=== PATIENT | female | born 1990 | race Caucasian/White ===

== ENCOUNTER 2016-10-31 06:11 | Observation (INO) | payer MEDICAID ==
[2016-10-31] VITALS (15 sets, daily range): BP systolic 107–163; BP diastolic 43–85
--- OUTSIDE RECORDS SUMMARY | 2016-10-31 06:23 | External Medical Summary Rpt ---
Author Author , Organization [employer] Address Unknown Phone Unavailable Care Team Providers Care Federal Judge Name Role Phone BEAVEN BRAD, BEAVEN Unavailable Unavailable BRAD JUÁREZ KIR, JUÁREZ Unavailable Unavailable KIR [facility] Unavailable [facility]available [facility], [facility] FIELD JANICE, FIELD JANICE Unavailable Unavailable [facility] Unavailable Unavailable SERVICE, [facility] Unavailable Unavailable SERVICE, [facility] JACQUES JANICE, JACQUES Unavailable Unavailable JANICE [facility] Unavailable Unavailable [facility], [facility] Unavailable Unavailable [facility]ANS, [facility] COPPAGE KRI, COPPAGE Unavailable Unavailable KRI DESCAlissa JANICE, DESCH JANICE Unavailable Unavailable KENISHA DAMON Unavailable Unavailable FIORDALIZA JESSICA SHAHID, JESSICA Unavailable Unavailable SHAHID JESSICA MAR, JESSICA Unavailable Unavailable MAR DOWNTON LIS, DOWNTON Unavailable Unavailable LIS ANYA MALCOM, ANYA Unavailable Unavailable MALCOM JULISSA NOR, JULISSA Unavailable Unavailable NOR CAMILLA SCOTT, CAMILLA SCOTT Unavailable Unavailable MICHELLSHSAURABH ESCUDERO, Unavailable Unavailable GANSHIRT KOTA MCDONALD MD, Unavailable Unavailable JACKIE JACKSON, Unavailable Unavailable REBECCA JACKSON, Unavailable Unavailable REBECCA JUNIOR LIL, VERNON LIL Unavailable Unavailable HARPEL, HARPEL Unavailable Unavailable [facility], HARPEL Unavailable Unavailable [facility] Un[facility] Un[facility], [facility], Unavailable Unavailable [facility] HURST MARTA, HURST MARTA Unavailable Unavailable REA GAR, REA Unavailable Unavailable BERKLEY MANCERA, Unavailable Unavailable RWODY MANCERA ESTEBAN EDNA, ESTEBAN EDNA Unavailable Unavailable LAMBRASHMI GARCIA, LAMBRASHMI Unavailable Unavailable MELISSA RAMOS Unavailable Unavailable ML [facility]STER[facility] ANJUM, Unavailable Unavailable [facility] ANJ[facility] Un[facility]available [facility], [facility], [facility] Unavailable Unavailable [facility] Unavailable Unavailable CENTER, [facility], , Unavailable Unavailable [facility] Unavailable Unavailable [facility]ORAT[facility], [facility] Unavailable Unavailable OF NOT, [facility]available Unavailable OF [facility], [facility] Unavailable Unavailable [facility], [facility] SHUKLA GLADIS, Unavailable Unavailable SHUKLA GLADIS [facility], [facility] Unavailable Unavailable [facility], [facility] Unavailable Unavailable ALP CHULA NAN, CHULA NAN Unavailable Unavailable SOTINGEANU JANICE, Unavailable Unavailable SOTINGEANU JANICE [facility], Unavailable Unavailable [facility] Un[facility], Unavailable Unavailable [facility] Unavailable Unavailable W[facility] INSPECTOR ST, [facility] Un[facility] Unavailable Unavailable [facility]ICIANS, [facility] Un[facility] Un[facility], [facility], [facility]available Unavailable [facility] MAURA STEPHENSON Unavailable Unavailable [facility] # Unavailable Unavailable 4, [facility] # 4 [facility] Unavailable Unavailable [facility], [facility], Unavailable Unavailable [facility] Unavailable Unavailable ME, [facility] TONY DEW, TONY DEW Unavailable Unavailable WOESTE MALCOM, WOESTE Unavailable Unavailable MALCOM SAMANTA MALCOM, SAMANTA MALCOM Unavailable Unavailable Purpose Continuity of Care Document - 08-11-2010 through 2016 Problems Code Diagnosis DOS Provider Status N393 STRESS 10-06-2016 [facility] INCONTINENC PHYSICIANS E FEMALE GROUP MALE N819 FEMALE 10-06-2016 [facility] GENITAL PHYSICIANS PROLAPSE GROUP UNSPECIFIED N3644 MUSCULAR 09-05-2016 [facility] DISORDERS PHYSICIANS OF [place]RE[place] GROUP [id number] ENCOUNTER 08-22-2016 [facility] PATENT PROSECUTION ATTORNEY EXAM PHYSICIANS GENERAL RTN GROUP W/O ABNORMAL FIND [id number] FOREIGN 08-20-2016 ST BODY IN [facility] LEFT EAR PHYSICIANS INITIAL ENCOUNTER B9789 OTH VIRAL 07-30-2016 ST AGENT CAUSE [facility] DISEASES PHYSICIANS CLASSIFIED ELSW J069 ACUTE UPPER 07-30-2016 [facility] RESPIRATORY PHYSICIANS INFECTION UNSPECIFIED T148 OTHER 11-27-2015 ST INJURY OF [facility] UNSPECIFIED PHYSICIANS BODY REGION [id number] OTHER EARLY 11-27-2015 ST [facility] COMPLICATIO PHYSICIANS NS TRAUMA INITIAL ENCNTR Z4802 ENCOUNTER 11-27-2015 ST FOR REMOVAL [facility] OF SUTURES PHYSICIANS M7989 OTHER 11-20-2015 [facility] SPECIFIED [facility]EL SOFT TISSUE DISORDERS [id number] LAC W/O FB 11-20-2015 [facility] UNS FINGER EMERGENCY W/O DAMAGE PHYSICIANS NAIL INITIAL [id number] PUNCTURE 11-20-2015 [facility] WOUND W/O EMERGENCY FB UNS HAND PHYSICIANS INITIAL ENC [id number] OPEN BITE 11-20-2015 GULUZIAN OF RIGHT RENETTA WRIST INITIAL ENCOUNTER [id number] BITTEN BY 11-20-2015 [facility] DOG INITIAL EMERGENCY ENCOUNTER PHYSICIANS N8320 UNSPECIFIED 10-16-2015 [facility] CYSTS INC Z302 ENCOUNTER 10-16-2015 [facility] STERILIZATI INC ON E26422 ENCOUNTER 10-12-2015 [facility] PREPROCEDUR INC AL LABORATORY EXAM N898 OTHER 10-05-2015 [facility] SPECIFIED [facility]ICIANS, NONINFLAMMA PLLC TORY DISORDERS VAGINA N939 ABNORMAL 10-05-2015 [facility] UTERINE & AMBULANCE VAGINAL SERVICE BLEEDING UNSPECIFIED O021 MISSED 10-05-2015 [facility] O034 INCOMPLETE 10-05-2015 [facility] W/O COMPLICATIO N O2691 10-05-2015 [facility], CONDITIONS PLLC UNS 1ST TRIMESTER R109 UNSPECIFIED 10-05-2015 [facility] ABDOMINAL AMBULANCE PAIN SERVICE O200 THREATENED 10-02-2015 [facility] PHYSICIANS GROUP N925 OTHER 09-10-2015 JACKIE MCDONALD MD IRREGULAR MENSTRUATIO N N760 ACUTE 09-07-2015 JACKIE Hubbard VAGINITIS TAMARA SINGLETON Z3009 ENCOUNTER 09-07-2015 JACKIE Hubbard [facility] TAMARA SINGLETON WARP DRESSER&ADV ICE CONTRACEPT O80 ENCOUNTER 04-24-2015 ST FOR [facility] FULL-TERM PHYSICIANS UNCOMPLICAT ED DELIVERY Z370 SINGLE LIVE 04-24-2015 ST [facility] PHYSICIANS Z3A40 40 WEEKS 04-24-2015 ST GESTATION [facility] OF PHYSICIANS [id number] DECREASED 04-21-2015 ST [facility] MOVEMENTS PHYSICIANS THIRD TRI FETUS 1 Z3483 ENC 04-21-2015 ST SUPERVISION [facility] OTH NORMAL PHYSICIANS 3 TRIMESTER Z3A39 39 WEEKS 04-21-2015 ST GESTATION [facility] OF PHYSICIANS O622 OTHER 04-13-2015 ST UTERINE [facility] INERTIA PHYSICIANS O628 OTHER 04-13-2015 ST ABNORMALITI [facility] ES OF MED CTR WATER INSPECTOR FORCES OF ST LABOR Z0371 ENCOUNTER 04-13-2015 ST SUSP PROB [facility] AMNIOTIC PHYSICIANS CAV MEMB RULED OUT Z36 ENCOUNTER 04-13-2015 ST FOR [facility] MED CTR WATER INSPECTOR SCREENING ST OF MOTHER Z3A38 38 WEEKS 04-13-2015 ST GESTATION ROG[facility] OF PHYSICIANS V221 SUPERVISION 03-17-2015 ST OF OTHER [facility] NORMAL PHYSICIANS 72014 THREATENED 03-12-2015 ST PREMATURE [facility] LABOR MED CTR WATER INSPECTOR ANTEPARTUM ST V2889 OTHER 03-12-2015 ST SPECIFIED [facility] MED CTR WATER INSPECTOR SCREENING ST 64576 OBESITY, 03-06-2015 ST UNSPECIFIED [facility]ATER [place] ST 81324 OTHER 03-06-2015 [facility] SPECIFED [facility] COMPLICATIO N ANTEPARTUM 11495 TOB USE D/O 03-06-2015 ST COMP PG [facility] /PP MED CTR WATER INSPECTOR ANTEPARTM ST COND/COMP 25157 OBES COMP 03-06-2015 ST PG [facility] /THE MED CTR WATER INSPECTOR PP ST ANTEPARTUM COND/COMP V8533 BODY MASS 03-06-2015 ST INDEX [facility] 33.0-33.9 MED CTR WATER INSPECTOR ADULT ST 4610 ACUTE 12-17-2014 ST MAXILLARY [facility] SINUSITIS PHYSICIANS V222 12-17-2014 STATE, [facility] INCIDENTAL PHYSICIANS 99825 UNS 12-03-2014 [facility] ABNORM MGMT W[facility] LLC MOTH ANTPRTM COND/COMP V2389 SUPERVISION 09-29-2014 ST OF OTHER [facility] HIGH-RISK MED CTR WATER INSPECTOR ST 5589 OTH&UNSPEC 09-17-2014 [facility] NONINFECTIO EMERGENCY US PHYSICIANS GASTROENTER ITIS&COLITI S V7242 09-11-2014 ST EXAMINATION [facility] OR TEST PHYSICIANS POSITIVE RESULT 3829 UNSPECIFIED 07-16-2014 ST OTITIS [facility] MEDIA PHYSICIANS 4619 ACUTE 07-16-2014 ST SINUSITIS, [facility] UNSPECIFIED PHYSICIANS 4871 INFLUENZA 06-04-2014 ST WITH OTHER ROGER RESPIRATORY PHYSICIANS MANIFESTATI ONS 29407 FEVER 06-04-2014 ST UNSPECIFIED [facility]OG[facility] PHYSICIANS 79495 PAIN IN 05-27-2014 [facility] THIGH 7245 UNSPECIFIED 05-19-2014 ST. BACKACHE R[facility] NAOMIE V571 OTHER 05-19-2014 ST. PHYSICAL [facility] THERAPY NAOMIE 99063 SCOLIOSIS , 05-06-2014 [facility] 6260 ABSENCE OF 03-31-2014 ST MENSTRUATIO ROG[facility] N PHYSICIANS V0481 NEED 03-31-2014 ST PROPHYLACTI ROGER C PHYSICIANS VACCINATION &INOCULATIO N FLU V2549 SURVEILLANC 01-31-2014 [facility] ALP E OTH PREV PRSC CONTRACEPT METHOD 15822 ASTHMA, 01-05-2014 ST UNSPECIFIED [facility] , MED CTR WATER INSPECTOR UNSPECIFIED ST STATUS 39718 OTH CURRENT 01-05-2014 ST MATERNAL [facility] CCE MED CTR WATER INSPECTOR W/DELIVERY ST 86307 TOBACCO USE 01-05-2014 ST D/O COMP [facility] PG MED CTR WATER INSPECTOR CHILDBIRTH/ ST PP DELIVERED 650 NORMAL 01-05-2014 ST DELIVERY [facility] PHYSICIANS 33671 OTHER 01-05-2014 ST SPECIFIED [facility] TRAUMA MED CTR WATER INSPECTOR PERINEUM&VU ST LVA W/DELIVERY V270 OUTCOME OF 01-05-2014 ST DELIVERY [facility] SINGLE PHYSICIANS LIVEBORN 20744 OTHER 12-29-2013 ST THREATENED [facility] LABOR, MED CTR WATER INSPECTOR ANTEPARTUM ST V289 UNSPECIFIED 12-29-2013 ST [facility] SCREENING MED CTR WATER INSPECTOR ST 50682 DECR 11-02-2013 ST MOVMNTS [facility] MGMT MOTH MED CTR WATER INSPECTOR ANTPRTM ST COND/COMP V036 NEED PROPH 10-29-2013 ST VACC&INOCUL R[facility] AT AGAINST PHYSICIANS PERTUSS ALONE V061 NEED PROPH 10-29-2013 ST VAC W/COMB [facility] DIPHTH-TETA PHYSICIANS NUS-PERTUSS [facility] V8531 BODY MASS 09-11-2013 ST INDEX [facility] 31.0-31.9 MED CTR WATER INSPECTOR ADULT ST 65148 OTH SPEC 08-12-2013 ST MALPSTN/MAL [facility] PRESENTATIO MED CTR WATER INSPECTOR N FETUS ST ANTPRTM 76105 ABDOMINAL 06-01-2013 [facility] UNSPECIFIED OF [facility] SITE 88800 OTH CURRENT 05-31-2013 ST MAT CONDS [facility] CLASSIFIABL MED CTR WATER INSPECTOR E ELSW ST ANTPRTM 42632 ABDOMINAL 05-31-2013 ST PAIN RIGHT [facility] LOWER MED CTR QUADRANT 11121 CALCU 05-26-2011 ST GALLBLADD ROG[facility] W/O MENTION PHYSICIANS CHOLECYST/O BST V5869 LONG-TERM 05-26-2011 ST (CURRENT) [facility] USE OF FT ANA OTHER MEDICATIONS 74508 OTHER COMPL 05-13-2011 ST. OF R[facility]ER PUERPERIUM NAOMIE PP COND/COMPL 60386 ABDOMINAL 05-13-2011 ST. PAIN RIGHT [facility] UPPER NAOMIE QUADRANT 12764 LEUKOCYTOSI 05-10-2011 ST S [facility] UNSPECIFIED MED CTR WATER INSPECTOR ST 7906 OTHER 05-10-2011 ST ABNORMAL [facility] BLOOD MED CTR WATER INSPECTOR CHEMISTRY ST V242 ROUTINE 04-25-2011 [place] [address] POST TERM 04-22-2011 [facility] PG UNSPEC WOMEN'S EPIS HEALTH ASS CARE/NOT APPLIC 34217 04-22-2011 [facility] DISTRESS WOMEN'S AFFCT MGMT HEALTH ASS MOTH UNS EPIS CARE 16028 ABN FETL 04-22-2011 ST HRT [facility] RATE/RHYTHM MEDICALCENT DELIV W/WO ER ANTPRTM COND 42171 OTH&UNS CRD 04-22-2011 ST ENTANGL [facility] W/O COMPRS MEDICALCENT COMP L&D ER DELIV 42280 OTHER 04-18-2011 [facility] THREATENED WOMEN'S LABOR HEALTH ASS UNSPEC EPISODE CARE 51100 PREMATURE 04-18-2011 [facility] RUPTURE MATERNAL MEMB PG ME UNSPEC EPIS CARE V239 UNSPECIFIED 04-18-2011 [facility] HIGH-RISK MATERNAL ME V220 SUPERVISION 04-14-2011 [facility] OF NORMAL [facility] 60107 EFFUSION OF 04-07-2011 ST. ANKLE AND ROGER FOOT JOINT NAOMIE 35243 SWELLING OF 04-07-2011 ST. LIMB [facility] NAOMIE V7189 OBSERVATION 04-07-2011 ST. OTHER [facility] SPECIFIED NAOMIE SUSPECTED CONDITIONS V141 PERSONAL 03-13-2011 HISTORY [facility] OTHER ER ANTIBIOTIC AGENT 541 APPENDICITI 01-05-2011 [facility] UNQUALIFIED PSC 6259 UNSPEC 01-05-2011 [facility] SYMPTOM [facility]'S ASSOC HEALTH ASS W/FEMALE GENITAL ORGANS V143 PERSONAL 01-04-2011 H[facility]ORY [facility] ER ANTI-INFECT MANDI AGT 95643 ABDOMINAL 01-03-2011 ST. PAIN OTHER [facility] SPECIFIED NAOMIE SITE V1582 PERS HX 01-03-2011 . TOBACCO USE [facility] PRESENTING [facility] HAZARDS HEALTH 4660 ACUTE 12-01-2010 BRONCHITIS [facility] 40055 UNSPECIFIED 11-28-2010 . [facility] ARTHROPATHY [facility] SITE UNSPECIFIED 9150 ABRASION/FR 11-28-2010 . ICTION BURN [facility] FINGER W/O NA[facility]IE MENTION INF 9233 CONTUSION 11-28-2010 ST. OF FINGER [facility] NAOMIE V148 PERSONAL 11-28-2010 . HISTORY [facility] ALLERGY OT NAOMIE SPEC MEDICINAL AGTS V7240 09-14-2010 [facility] EXAMINATION WOMEN'S /TEST HEALTH ASS UNCONFIRMED 7840 HEADACHE 09-04-2010 [facility] 36735 UNSPEC COMP 09-02-2010 [facility] UNSPEC PHYSICIANS EPISODE CARE Medications Na ND Rx Da Fi Fi Am Da Di Ph RX Ph St me C No te ll ll ou ys ag ar # ys at rm s nt no ma ic us Or Da si cy ia de te s n re d OX 62 03 04 5. 5 00 CL Ac YB 17 -2 -1 00 00 IN ti UT 50 0- 4- 0 00 IC ve YN 27 20 20 42 IN 13 17 17 57 PH 7 26 AR CL MA CY ER 10 MG TA BL ET OX 62 03 03 14 14 00 CL Ac YB 17 -0 -3 .0 00 IN ti UT 50 6- 1- 00 00 IC ve YN 27 20 20 42 IN 13 17 17 43 PH 7 39 AR CL MA CY ER 10 MG TA BL ET OS 47 02 03 10 10 00 TO Ac EL 78 -2 -1 .0 00 TA ti TA 10 0- 7- 00 00 L ve CA 47 20 20 66 CA 01 17 17 53 RE R 3 69 PH PH OS AR MA 75 CY # MG 4 CA PS UL E IB 53 02 03 30 8 00 TO Ac UP 74 -1 -1 .0 00 TA ti RO 60 1- 0- 00 00 L ve FE 46 20 20 66 CA N 50 17 17 45 RE 60 5 02 0 PH MG AR MA TA CY BL # ET 4 FL 00 02 03 18 9 00 TO Ac OM 60 -1 -1 0. 00 TA ti ET 31 1- 0- 00 00 L ve AGUILAR 58 20 20 0 66 CA ZI 65 17 17 45 RE NE 8 03 -D PH M AR SY MA RU CY P # 4 BE 65 02 03 30 10 00 TO Ac NZ 16 -1 -1 .0 00 TA ti ON 20 1- 0- 00 00 L ve AT 53 20 20 66 CA AT 75 17 17 45 RE E 0 04 20 PH 0 AR MG MA CY CA # PS 4 UL E ZA 13 07 10 9 30 30 TO 48 KA Ac TE 81 -2 -0 .0 TA 33 NT ti AN 10 0- 1- 00 L 10 ER ve -P 58 20 20 CA N 03 11 11 RE GA DH 0 RY A PH J CA AR PS MA UL CY E # 4 ZA 13 07 08 9 30 30 TO 48 KA Ac TE 81 -2 -2 .0 TA 33 NT ti AN 10 0- 5- 00 L 10 ER ve -P 58 20 20 CA N 03 11 11 RE GA DH 0 RY A PH J CA AR PS MA UL CY E # 4 ZA 13 07 07 9 30 30 TO 48 KA Ac TE 81 -2 -2 .0 TA 33 NT ti AN 10 0- 0- 00 L 10 ER ve -P 58 20 20 CA N 03 11 11 RE GA DH 0 RY A PH J CA AR PS MA UL CY E # 4 AM 00 06 06 0 40 10 TO 48 MA Ac OX 78 -1 -1 .0 TA 02 RT ti IC 12 5- 5- 00 L 87 IN ve IL 61 20 20 CA LI 30 11 11 RE ABE N 5 SE 50 PH PH 0 AR R MG MA CY CA # PS 4 UL E VE 00 06 06 5 18 16 TO 48 MA Ac NT 17 -1 -1 .0 TA 02 RT ti OL 30 5- 5- 00 L 88 IN ve IN 68 20 20 CA 22 11 11 RE ABE HF 0 SE A PH PH 90 AR R MA MC CY G # IN 4 AGUILAR LE R ZA 13 03 06 12 30 30 TO 47 RA Ac TE 81 -2 -1 .0 TA 28 NS ti AN 10 9- 4- 00 L 98 ON ve -P 58 20 20 CA N 03 11 11 RE TI DH 0 NA A PH L CA AR PS MA UL CY E # 4 ZA 13 03 05 12 30 30 TO 47 RA Ac TE 81 -2 -0 .0 TA 28 NS ti AN 10 9- 5- 00 L 98 ON ve -P 58 20 20 CA N 03 11 11 RE TI DH 0 NA A PH L CA AR PS MA UL CY E # 4 ZA 13 03 03 12 30 30 TO 47 RA Ac TE 81 -2 -2 .0 TA 28 NS ti AN 10 9- 9- 00 L 98 ON ve -P 58 20 20 CA N 03 11 11 RE TI DH 0 NA A PH L CA AR PS MA UL CY E # 4 AM 00 03 03 0 20 10 TO 47 DO Ac OX 78 -1 -1 .0 TA 18 NO ti IC 15 7- 7- 00 L 76 VA ve IL 06 20 20 CA N LI 10 11 11 RE AN N 1 NE 87 PH D 5 AR MG MA CY TA # BL 4 ET Immunization Name Date Route CVX Reacti Commen Provid Is Given on t er Refuse d IIV4 CHULA No VACC 2013 NAN SPLIT VIRUS 0.5 ML DOS FOR IM USE TDAP TAYCE No VACCIN 2014 FIORDALIZA E 7 YRS/> IM Procedures Procedure DOS Code Location Performer Comment CULTURE 67874 [facility] CHLAMYDIA 7 PHYSICIAN ANY S GROUP SOURCE IADNA 02176 [facility] NEISSERIA 7 PHYSICIAN S GROUP [place] [address] [place] VARELA, XTRNL 7 [facility]ER MAJANO, DO AUDITORY CANAL W/O PHYSICIAN ANES S SIMPLE 76721 [facility] CAMILLA SCOTT REPAIR 6 EMERGENCY SCALP/NEC K/AX/KAELA PHYSICIAN T/TRUNK S 2.5CM/< RADEX 04668 GULU[facility]IAN GULUZIAN WRIST 6 RENETTA RENETTA COMPLETE MINIMUM 3 VIEWS LAPS SURG 18640 JACKIE MCDONALD W/ASPIR 6 TAMARA SINGLETON EZE CAVITY/CY ST SINGLE/MU LTIPLE BLOOD 99076 [facility] HEMOGLOBI INC INC N INJECTION J2710 [facility] NEOSTIGMI INC INC NE METHYLSUL FATE UP TO 0.5 MG COLLECTIO 22763 [facility] N VENOUS 6 [facility] BLOOD INC INC VENIPUNCT URE INJECTION J2405 [facility] ONDANSETR INC INC ON HCL PER 1 MG ANESTHESI 25910 [facility] EMIR Falcon 6 ANESTH INTRAPERI OF THE TONEAL BLUE LOWER ABD W/LAPS NOS BLOOD 51471 [facility] COUNT 6 [facility] HEMATOCRI INC INC T LAPAROSCO 76714 [facility] PY 6 [facility] FULGURATI INC INC ON OVIDUCTS INJECTION J0131 [facility] ACETAMINO INC INC PHEN 10 MG URNLS DIP 30848 [facility] [facility] STICK/TAB INC INC LET REAGENT AUTO MICROSCOP Y COLLECTIO 01963 [facility] N VENOUS 6 [facility] BLOOD INC INC VENIPUNCT URE BLOOD 49582 [facility] COUNT 6 [facility] COMPLETE INC INC AUTO&AUTO DIFRNTL WBC GONADOTRO 94649 [facility] PIN 6 [facility] CHORIONIC INC INC QUALITATI VE BLOOD 32036 [facility] COUNT 6 [facility] HEMOGLOBI INC INC N ANESTHESI 88720 [facility] FERCHO A 6 ANESTH SHE INCOMPLET OF THE E/MISSED BLUE COLLECTIO 59087 [facility] N VENOUS 6 [facility] BLOOD INC INC VENIPUNCT URE BLOOD 15423 [facility] KING COUNT 6 [facility] [place] [address] [facility] TAMARA INCOMPLET 6 PHYSICIAN EZE E S GROUP ANY TRIMESTER SURGICAL INJECTION J2405 [facility] 6 [facility] ONDANSETR INC INC ON HCL [place] 1 [place] [address] [facility] SURG 6 [facility] PATHOLOGY GROSS&VENKATESH ROSCOPIC EXAM GROUND A0425 [facility] PER SERVICE SERVICE STATUTE MILE AMBULANCE A0429 [facility] 6 AMBULANCE AMBULANCE BLS SERVICE SERVICE EMERGENCY TRANSPORT GONADOTRO 72139 [facility] PIN 6 [facility] CHORIONIC INC INC QUANTITAT MANDI COLLECTIO 53626 F[facility] N VENOUS 6 [facility] BLOOD INC INC VENIPUNCT URE GONADOTRO 50004 [facility] K[facility] PIN 6 [facility] CHORIONIC INC INC QUANTITAT MANDI BLOOD 32362 [facility] TYPING 6 [facility] SEROLOGIC INC INC ABO BLOOD 06420 [facility] TYPING 6 [facility] SEROLOGIC INC INC RH (D) US PREG 60635 [facility] UTERUS 6 PHYSICIAN EZE REAL TIME S GROUP W/IMAGE DCMTN TRANSVAG URINE 25372 [facility] 6 PHYSICIAN EZE TEST S GROUP VISUAL COLOR CMPRSN METHS SMR PRIM 33793 JACKIE MCDONALD SRC WET 6 TAMARA SINGLETON EZE MOUNT NFCT AGT IADNA 54085 BIO BIO CHLAMYDIA 6 REFERNCE REFERNCE LABORATOR LABORATOR TRACHOMAT IES IES IS AMPLIFIED PROBE TQ CYTP 71038 BIO BIO CERV/VAG 6 REFERNCE REFERNCE AUTO THIN LABORATOR LABORATOR LAYER IES IES PREP MNL SCREEN IADNA 76403 JACKIE Hubbard NEISSERIA 6 TAMARA MCDONALD MD GONORRHOE AE DIRECT PROBE TQ IADNA 41891 BIO BIO NEISSERIA 6 REFERNCE REFERNCE LABORATOR LABORATOR GONORRHOE IES IES AE AMPLIFIED PROBE TQ IADNA NOS 87838 BIO BIO 6 REFERNCE REFERNCE AMPLIFIED LABORATOR LABORATOR PROBE TQ IES IES EACH ORGANISM CULTURE 94307 JACKIE MCDONALD CHLAMYDIA 6 TAMARA SINGLETON EZE ANY SOURCE IADNA 24685 BIO BIO TRICHOMON 6 REFERNCE REFERNCE LABORATOR LABORATOR VAGINALIS IES IES AMPLIFIED PROBE TECH VAGINAL 93255 ST ESTEBAN EDNA DELIVERY 5 [facility] ONLY W/POSTPAR PHYSICIAN MIKE CARE S NEURAXIAL 71385 INDEPENDE DESCH JANICE LABOR 5 NT ANALG/ANE ANESTHESI S PLND OLOGIST VAGINAL DELIVERY 81945 ST JESSICA NONSTRESS 5 ROGER MAR TEST PHYSICIAN S 38795 ST JUNIOR LIL NONSTRESS 5 ROGER TEST PHYSICIAN S HOSPITAL G0463 ST ST OUTPATIEN 5 ROGER ROGER T CLIN MED CTR MED CTR VISIT WATER INSPECTOR ST WATER INSPECTOR ST ASSESS & MGMT PT IADNA [address] CHLAMYDIA 5 ROGER ROGER MED CTR MED CTR TRACHOMAT WATER INSPECTOR ST WATER INSPECTOR ST IS AMPLIFIED PROBE TQ IADNA [address] NEISSERIA 5 ROGER ROGER MED CTR MED CTR GONORRHOE WATER INSPECTOR ST WATER INSPECTOR [place] AM[place] [address] NONSTRESS 5 ROGER ROGER TEST MED CTR MED CTR WATER INSPECTOR ST WATER INSPECTOR ST THERAPEUT [address] IC 5 ROGER ROGER PROPHYLAC MED CTR MED CTR TIC/DX WATER INSPECTOR ST WATER INSPECTOR ST INJECTION SUBQ/[place] [address] INFUSION 5 ROGER ROGER HYDRATION MED CTR MED CTR INITIAL WATER INSPECTOR ST WATER INSPECTOR ST 31 MIN-[address] IN[address] 5 ROGER ROGER TERBUTALI MED CTR MED CTR NE WATER INSPECTOR ST WATER INSPECTOR ST SULFATE UP TO [address] D[address] 5 ROGER ROGER STICK/TAB MED CTR MED CTR LET WATER INSPECTOR ST WATER INSPECTOR ST REAGENT AUTO MICROSCOP [place] PREG 48909 [facility] UTERUS [facility] [employer] REAL TIME F/U TRNSABDL PER FETUS GLUCOSE [address] [facility] 5 ROGER ROGER GLUCOSE NAOMIE NAOMIE DOSE BLOOD [address] COUNT 5 ROGER ROGER COMPLETE NAOMIE NAOMIE AUTO&AUTO DIFRNTL WBC COLLECTIO [address] N VENOUS 5 ROGER ROGER BLOOD NAOMIE NAOMIE VENIPUNCT URE US PREG 30240 [facility] UTERUS [facility] [employer] DON W/DETAIL RAJINDER 1ST GESTATION IADNA [address] [place] 5 [facility] MED CTR GONORRHOE WATER INSPECTOR ST WATER INSPECTOR ST AE AMPLIFIED PROBE TQ IADNA [address] CHLAMYDIA 5 [facility] MED CTR TRACHOMAT WATER INSPECTOR ST WATER INSPECTOR ST IS AMPLIFIED PROBE TQ CYTP C/V [address] AUTO THIN 5 [facility] MED CTR PREPJ SCR WATER INSPECTOR ST WATER INSPECTOR ST MNL RESCR PHYS CULTURE [address] BACTERIAL 5 [facility] CTR MED CTR QUANTTATI WATER INSPECTOR ST WATER INSPECTOR ST VE COLONY COUNT URINE URINE 13440 ST JESSICA 5 ROGER MAR TEST VISUAL PHYSICIAN COLOR S CMPRSN METHS IAADIADOO 53617 KENISHA 4 ROGER FIORDALIZA INFLUENZA PHYSICIAN S APPL 52570 [facility]. MODALITY 4 ROGER ROGER / [facility] NAOMIE NAOMIE ELEC STIMJ UNATTENDE D THERAPEUT 98932 [facility]. IC PX 1/> [address] [facility] NAOMIE NAOMIE EACH 15 MIN EXERCISES PHYSICAL 44490 . . THERAPY 4 SPARROW BUSH ROGER EVALUATIO NAOMIE NAOMIE N THERAPEUT 33144 . . IC PX 1/> [address] [facility] NAOMIE NAOMIE EACH 15 MIN EXERCISES RADEX HIP 88101 [facility] COMMONWE[facility] 4 LTH LTH UNILATERA ORTHOPAED ORTHOPAED L [address] IC CTR RADIOLOGI 39228 [facility] COMMONWEA C 4 LTH LTH EXAMINATI ORTHOPAED ORTHOPAED ON PELVIS IC CTR IC CTR 1/2 VIEWS IM ADM [address] ST CHULA NAN PRQ ID 4 ROGER SUBQ/IM NJXS 1 PHYSICIAN VACCINE S GONADOTRO [address] PIN 4 ROGER ROGER [facility] WATER INSPECTOR ST WATER INSPECTOR ST QUALITATI VE IIV4 VACC [address] [facility] SPLIT 4 ROGER VIRUS 0.5 ML DOS PHYSICIAN FOR IM S USE VAGINAL 08307 ST JESSICA DELIVERY 4 ROGER SHAHID ONLY W/POSTPAR PHYSICIAN MIKE CARE S OTHER [address] ARTIFICIA 4 ROGER ROGER L RUPTURE MED CTR MED CTR OF WATER INSPECTOR ST WATER INSPECTOR ST MEMBRANES OTHER [address] MANUALLY 4 ROGER ROGER ASSISTED MED CTR MED CTR DELIVERY WATER INSPECTOR ST WATER [place] [address] NONSTRESS 4 ROGER ROGER TEST MED CTR MED CTR WATER INSPECTOR ST [place] NONSTRESS 4 ROGER ROGER TEST MED CTR MED CTR WATER INSPECTOR ST WATER INSPECTOR ST IADNA [address] NEISSERIA 4 ROGER ROGER MED CTR MED CTR GONORRHOE WATER INSPECTOR ST WATER INSPECTOR ST AE AMPLIFIED PROBE TQ IADNA [address] CHLAMYDIA 4 ROGER ROGER MED CTR MED CTR TRACHOMAT WATER INSPECTOR ST WATER INSPECTOR ST IS AMPLIFIED PROBE TQ IADNA [address] STREPTOCO 4 ROGER ROGER CCUS MED CTR MED CTR GROUP B WATER INSPECTOR ST WATER INSPECTOR ST AMPLIFIED PROBE TQ TDAP 51001 ST TAYCE FIORDALIZA VACCINE 7 4 ROGER YRS/> IM PHYSICIAN S COLLECTIO [address] N VENOUS 4 ORGER ROGER BLOOD ELA DUBOISENCE VENIPUNCT URE BLOOD [address] COUNT 4 ROGER ROGER COMPLETE ELA MAHMOOD AUTO&AUTO DIFRNTL WBC GLUCOSE [address] POST 4 ROGER ROGER GLUCOSE ELA ELA DOSE US PREG 59010 [facility] COPPAGE UTERUS 4 MATERNAL KRI REAL TIME AND F/U TRNSABDL PER FETUS US PREG 61175 [facility] COPPAGE UTERUS 4 MATERNAL KRI W/DETAIL AND RAJINDER 1ST GESTATION URNLS DIP 29684 ST DOWNTON 4 ROGER LIS STICK/TAB LET RGNT PHYSICIAN NON-AUTO S W/O MICRSCP CYTP C/V [address] AUTO THIN 4 ROGER ROGER LYR MED CTR MED CTR PREPJ SCR WATER INSPECTOR ST WATER INSPECTOR ST MNL RESCR PHYS IADNA [address] CHLAMYDIA 4 ROGER ROGER MED CTR MED CTR TRACHOMAT WATER INSPECTOR ST WATER INSPECTOR ST IS AMPLIFIED PROBE TQ IADNA [address] NEISSERIA 4 ROGER ROGER MED CTR MED CTR GONORRHOE WATER INSPECTOR ST WATER INSPECTOR ST AE AMPLIFIED PROBE TQ ANTIBODY [address] SCREEN 4 ROGER DURAN RBC EACH MED CTR MED CTR SERUM WATER INSPECTOR ST WATER INSPECTOR ST TECHNIQUE BLOOD [address] TYPING 4 ROGER DAYTH SEROLOGIC MED CTR MED CTR ABO WATER INSPECTOR ST WATER INSPECTOR ST BLOOD [address] TYPING 4 ROGER ROGER SEROLOGIC MED CTR MED CTR RH (D) WATER INSPECTOR ST WATER INSPECTOR ST CULTURE [address] BCT 4 ROGER DURAN ISOL&PRSM MED CTR MED CTR PTV ID WATER INSPECTOR ST WATER INSPECTOR ST ISOLATE EA URINE CULTURE [address] BACTERIAL 4 ROGER ROGER MED CTR MED CTR QUANTTATI WATER INSPECTOR ST WATER INSPECTOR ST VE COLONY COUNT URINE COLLECTIO [address] N VENOUS 4 ROGER ROGER BLOOD MED CTR MED CTR VENIPUNCT WATER INSPECTOR [place] [address] HEPATITIS 4 ROGERENRIQUETA DAYTH B MED CTR MED CTR SURFACE WATER INSPECTOR ST WATER INSPECTOR ST ANTIGEN BLOOD [address] COUNT 4 ROGERENRIQUETA DURAN COMPLETE MED CTR MED CTR AUTO&AUTO WATER INSPECTOR ST WATER INSPECTOR ST DIFRNTL WBC ANTIBODY [address] RUBELLA 4 ROGER ROGER MED CTR MED CTR WATER INSPECTOR ST WATER INSPECTOR ST ANTIBODY 66192 [facility] TREPONEMA 4 ROGERASHLEY DURAN PALLIDUM MED CTR MED CTR WATER INSPECTOR ST WATER INSPECTOR ST URINE 48130 ST ESTEBAN EDNA 4 ROGER TEST VISUAL PHYSICIAN COLOR S CMPRSN METHS US PREG 33679 RADIOLOGY KLEIMEYER UTERUS 3 FIORDALIZA REAL TIME ASSOCIATE W/IMAGE S OF [facility] DCMTN TRANSVAG URINE 49366 [facility] PENDELETO 3 N CO N CO TEST [facility] CENTER COLOR CMPRSN METHS URINE 58022 [facility] 1 ROGER DURAN TEST FT FT VISUAL ANA ANA COLOR CMPRSN METHS LAPAROSCO 55616 ST PY SURG 1 ROGER DURAN CHOLECYST FT FT ECTOMY ANA PEREZ INJECTION J0690 ST ST 1 ROGER DURAN CEFAZOLIN FT FT SODIUM ANA ANA [address] 1 ROGER DURAN MIDAZOLAM FT FT HCL PER ANA ANA [address] 1 ROGER DURAN HYDROMORP FT FT TITI UP ANA PEREZ TO [address] INTRAPERI 1 ROGER DURAN TONEAL FT FT UPPER ANA ANA ABDOMEN W/LAPS NOS INJECTION J1885 ST ST 1 ROGER DURAN KETOROLAC FT FT ANA ANA TROMETHAM INE PER [address] 1 ROGER DURAN NEOSTIGMI FT FT NE ANA ANA METHYLSUL FATE UP TO 0.[address] FENTANYL 1 ROGER DURAN CITRATE FT FT 0.1 MG ANA ANA INJECTION J2405 ST ST 1 ROGER DURAN ONDANSETR FT FT ON HCL ANA ANA PER 1 MG LEVEL III 98753 [facility] OSTERHAGE SURG 1 ANJUM ANJUM PATHOLOGY GROSS&VENKATESH ROSCOPIC EXAM ACUTE [address] HEPATITIS 1 ROGER ROGER PANEL MED CTR MED CTR WATER [place] [address] AMYLASE 1 ROGER ROGER MED CTR MED CTR WATER [address] [address] FOLIC 1 ROGER ROGER ACID MED CTR MED CTR SERUM WATER INSPECTOR ST WATER INSPECTOR ST BLOOD [address] COUNT 1 ROGER ROGER COMPLETE MED CTR MED CTR AUTO&AUTO WATER INSPECTOR ST WATER INSPECTOR ST DIFRNTL WBC CYANOCOBA [address] RADHA 1 ROGER ROGER VITAMIN MED CTR MED CTR B-[address] [place] [address] LIPASE 1 ROGER ROGER MED CTR MED CTR WATER INSPECTOR ST WATER INSPECTOR ST HEPATIC [address] FUNCTION 1 ROGER ROGER PANEL MED CTR MED CTR WATER [place] [address] RADIOLOGY RADIOLOGY ABDOMINAL 1 REAL ASSOCIATE ASSOCIATE TIME S OF NOTH S OF NOTH W/IMAGE LIMITED HEPATIC [address] FUNCTION 1 ROGER ROGER PANEL MED CTR MED CTR WATER INSPECTOR ST WATER INSPECTOR ST BLOOD [address] COUNT 1 ROGER ROGER COMPLETE MED CTR MED CTR AUTO&AUTO WATER INSPECTOR ST WATER INSPECTOR ST DIFRNTL WBC BASIC [address] METABOLIC 1 ROGER ROGER PANEL MED CTR MED CTR CALCIUM WATER INSPECTOR ST WATER INSPECTOR ST TOTAL POSTPARTU 63728 [facility] WOESTE M CARE 1 WOMEN'S MALCOM ONLY HEALTH SEPARATE ASS PROCEDURE VAGINAL 97630 [facility] DELIVERY 1 WOMEN'S MALCOM ONLY HEALTH ASS [address] NONSTRESS 1 ROGER ROGER [place] [address] 1 ROGER ROGER UTERUS LIMITED MEDICALCE MEDICALCE 1/> NTER NTER FETUSES OBSERVATI 04938 [facility] ASS CARE 50 MINUTES URNLS DIP 58960 [place] [address] WOMEN'S GAR STICK/TAB HEALTH LET RGNT ASS NON-AUTO W/O MICRSCP 05193 [facility] NONSTRESS 1 ROGERASHLEY DURAN TEST MEDICALCE MEDICALCE NTER NTER DUP-SCAN 43996 [facility]. XTR VEINS 1 ROGER DAYTH NAOMIE NAOMIE UNILATERA L/LIMITED STUDY URNLS DIP 36020 [place] [address] WOMEN'S BRAD STICK/TAB HEALTH LET RGNT ASS NON-AUTO W/O MICRSCP URNLS DIP 71193 [place] [address] WOMEN'S GAR STICK/TAB HEALTH LET RGNT ASS NON-AUTO W/O MICRSCP 64165 [facility] NONSTRESS 1 ROGER DAYTH TEST MEDICALCE MEDICALCE NTER NTER URNLS DIP 20450 [place] [address] WOMEN'S BRAD STICK/TAB HEALTH LET RGNT ASS NON-AUTO W/O MICRSCP 12557 [facility] NONSTRESS 1 ROGER DAYTH TEST MEDICALCE MEDICALCE NTER NTER URNLS DIP 87372 [facility] 1 ROGER ROGER STICK/TAB LET MEDICALCE MEDICALCE REAGENT NTER NTER AUTO MICROSCOP Y URNLS DIP 21951 [place] [address] WOMEN'S GAR STICK/TAB HEALTH LET RGNT ASS NON-AUTO W/O MICRSCP IADNA 75900 [facility] STREPTOCO 1 ROGER ROGER CCUS GROUP B MEDICALCE MEDICALCE AMPLIFIED NTER NTER PROBE TQ THERAPEUT 66755 [facility] IC 1 ROGER ROGER PROPHYLAC TIC/DX MEDICALCE MEDICALCE INJECTION NTER NTER SUBQ/IM 26568 [facility] NONSTRESS 1 ROGER ROGER TEST MEDICALCE MEDICALCE NTER NTER URNLS DIP [address] 1 ROGER ROGER STICK/TAB LET MEDICALCE MEDICALCE REAGENT NTER NTER AUTO MICROSCOP Y URNLS DIP 15048 [place] [address] WOMEN'S GAR STICK/TAB HEALTH LET RGNT ASS NON-AUTO W/O MICRSCP URNLS DIP 98603 [place] [address] WOMEN'S GAR STICK/TAB HEALTH LET RGNT ASS NON-AUTO W/O MICRSCP URNLS DIP 98470 [place] [address] WOMEN'S GAR STICK/TAB HEALTH LET RGNT ASS NON-AUTO W/O MICRSCP URNLS DIP 69700 [place] [address] WOMENS GAR STICK/TAB HEALTH LET RGNT ASS NON-AUTO W/O MICRSCP HOSPITAL [address] [facility] ASS T 30 MIN/< [place] [address] [facility] ABDOMINAL 1 ROGER DURAN REAL TIME MEDICALCE MEDICALCE W/IMAGE NTER NTER LIMITED INITIAL 60991 [facility] OBSERVATI 1 ROGER DURAN ON CARE/DAY MEDICALCE MEDICALCE 50 NTER NTER MINUTES URNLS DIP [address]691 ST 1 ROGER DURAN STICK/TAB LET MEDICALCE MEDICALCE REAGENT NTER NTER AUTO MICROSCOP Y US PREG 20227 [facility] UTERUS 1 ROGER DURAN W/DETAIL MEDICALCE MEDICALCE RAJINDER 1ST NTER NTER GESTATION INITIAL 74751 PHYSICIAN OBSERVATI 1 ROGER POE ON LABORATOR CARE/DAY MEDICALCE Y 50 NTER MINUTES THER 56221 [facility] PROPH/DX 1 ROGER DURAN NJX EA SEQL IV MEDICALCE MEDICALCE PUSH NTER NTER SBST/DRUG FAC SBSQ [address] CARE/DAY HEALTH 25 ASS MINUTES HEPATIC 08816 [facility] FUNCTION 1 ROGER DURAN PANEL MEDICALCE MEDICALCE NTER NTER BLOOD 64418 [facility] COUNT 1 ROGER DURAN COMPLETE AUTOMATED [place] [address] AMYLASE 1 ROGER ROGER MEDICALCE MEDICALCE NTER NTER MRI [address] PELVIS 1 ROGER DURAN W/O CONTRAST MEDICALCE MEDICALCE MATERIAL NTER NTER THER [address] PROPH/DX 1 ROGER ROGER NJX IV PUSH MEDICALCE MEDICALCE SINGLE/1S NTER NTER T SBST/DRUG THER [address] PROPH/DX 1 ROGER ROGER NJX IV NAOMIE NAOMIE PUSH SINGLE/1S T SBST/DRUG BLOOD [address] [facility] NAOMIE NAOMIE AUTO&[place] [address] [facility]. INFUSION 1 ROGER ROGER HYDRATION NAOMIE NAOMIE EACH ADDITIONA L HOUR INITIAL [address]/DAY HEALTH 70 ASS MINUTES URNLS DIP 30031 [facility] ST. 1 ROGER ROGER STICK/TAB NAOMIE NAOMIE LET RGNT NON-AUTO W/O MICRSCP COLLECTIO 09199 [facility] ST. N VENOUS 1 [place] ROGER BLOOD NAOMIE NAOMIE VENIPUNCT URE COLLECTIO 72329 [facility] ST. N VENOUS 1 [facility] NAOMIE NAOMIE VENIPUNCT URE BLOOD 17518 [facility] ST. COUNT 1 ROGER DAYTH HEMOGLOBI NAOMIE NAOMIE N GLUCOSE 11970 [facility]. POST 1 ROGER ROGER GLUCOSE NAOMIE NAOMIE DOSE URNLS DIP 95438 [facility] J[facility] 1 WOMEN'S KIR STICK/TAB HEALTH LET RGNT ASS NON-AUTO W/O MICRSCP RADEX 88916 [facility]ST MARTA FINGR 1 MINIMUM 2 ASSOCIATE VIEWS S PSC URNLS DIP 22312 [facility] 1 WOMEN'S BRAD STICK/TAB HEALTH LET RGNT ASS NON-AUTO W/O MICRSCP US PREG 05304 [facility] UTERUS 1 WOMEN'S MALCOM W/DETAIL HEALTH ASS RAJINDER 1ST GESTATION URNLS DIP 23226 [facility] 1 WOMEN'S MALCOM STICK/TAB HEALTH LET RGNT ASS NON-AUTO W/O MICRSCP URNLS DIP 88364 [facility] 1 WOMEN'S BRAD STICK/TAB HEALTH LET RGNT ASS NON-AUTO W/O MICRSCP URINE 81397 [facility] 1 WOMEN'S WOMEN'S TEST HEALTH HEALTH VISUAL ASS ASS COLOR CMPRSN METHS URINE 40094 [place] PEN[facility] 1 N CO N CO TEST [facility] V[facility]UAL C[facility] CENTER COLOR CMPRSN METHS Encounters Encounter Start End Date Code Location Performer Type Date OFFICE 48943 [facility] OUTPATIEN 7 7 PHYSICIAN T VISIT S GROUP 15 MINUTES OFFICE 31160 [facility] IVANL OUTPATIEN 7 7 PHYSICIAN T VISIT S GROUP 15 MINUTES PERIODIC 97399 [facility] 7 PHYSICIAN E MED EST S GROUP PATIENT 18-[address] [place], OUTPATIEN 7 7 ROGER MAJANO, DO T VISIT 10 PHYSICIAN MINUTES S OFFICE 11471 [facility] [place] II OUTPATIEN 7 7 ROGER T VISIT 25 PHYSICIAN MINUTES S OFFICE 13278 ST [facility] NAN OUTPATIEN 6 6 ROGER T VISIT 15 PHYSICIAN MINUTES S EMERGENCY 77808 [facility] SCOTT [facility] HIGH/URGE S NT SEVERITY [facility] - [facility] 6 [facility] OUT[facility]IEN [facility] - 6 6 [facility]IEN [facility] - 6 6 [facility] OUTPATIEN [facility] EMERGENCY 94673 [facility] DEPT 6 6 [facility] VISIT INC HIGH SEVERITY& THREAT FUNCJ EMERGENCY 69467 ZHANE CALVO 6 6 PHYSICIAN U JANICE DEPARTMEN S, PLLC T VISIT HIGH/URGE NT SEVERITY OFFICE 18797 [facility] HAR[facility] OUTPATIEN 6 6 PHYSICIAN EZE T VISIT S GROUP 25 MINUTES [facility] - 6 6 [facility] OUTPATIEN INC T [facility] - 6 6 [facility] OUTPATIEN INC T OFFICE 46060 [facility] OUTPATIEN 6 6 PHYSICIAN EZE T VISIT S GROUP 25 MINUTES OFFICE 28966 JACKIE MCDONALD OUTPATIEN 6 6 TAMARA SINGLETON EZE T VISIT 15 MINUTES OFFICE 93119 JACKIE MCDONALD OUTPATIEN 6 6 TAMARA SINGLETON EZE T VISIT 25 MINUTES INITIAL 43001 JACKIE MCDONALD PREVENTIV 6 6 TAMARA SINGLETON EZE E MEDICINE NEW PT AGE 18-39YRS OFFICE 55448 ST JESSICA OUTPATIEN 5 5 ROGER MAR T VISIT 15 PHYSICIAN MINUTES S OFFICE 71856 ST JESSICA OUTPATIEN 5 5 ROGER MAR T VISIT 15 PHYSICIAN MINUTES [facility] ST - 5 5 ROGER OUTPATIEN MED CTR T W[facility] - 5 5 ROGER OUTPATIEN MED CTR T WATER INSPECTOR ST OFFICE 67816 ST ESTEBAN EDNA OUTPATIEN 5 5 ROGER T VISIT 15 PHYSICIAN MINUTES S OFFICE 41532 ST JESSICA OUTPATIEN 5 5 ROGER MAR T VISIT 15 PHYSIC[address] [facility] [address] - 5 5 ROGER OUTPATIEN MED CTR T WATER INSPECTOR ST OFFICE 23189 ST OUTPATIEN 5 5 ROGER T VISIT MED CTR [address]UTES [facility] ST - 5 5 ROGER OUTPATIEN MED CTR T WATER INSPECTOR ST OFFICE 60252 ST ESTEBAN EDNA OUTPATIEN 5 5 ROGER T VISIT 15 PHYSICIAN MINUTES S OFFICE 04403 ST JESSICA OUTPATIEN 5 5 ROGER MAR T VISIT [address] PHYSIC[address] [facility] - 5 5 ROGER OUTPATIEN NAOMIE T OFFICE 11428 ST ESTEBAN EDNA OUTPATIEN 5 5 ROGER T VISIT 15 PHYSICIAN MINUTES S OFFICE 64605 JESSICA JESSICA OUTPATIEN 5 5 MAR MAR T VISIT [address] KENISHA OUTPATIEN 5 5 ROGER FIORDALIZA T VISIT 15 PHYSICIAN MINUTES [facility] ST - 5 5 ROGER OUTPATIEN MED CTR T WATER INSPECTOR OFFICE 66610 [facility] 5 ROGER KOTA T VISIT 15 PHYSICIAN MINUTES [facility] ST - 5 5 ROGER OUTPATIEN MED CTR T WATER INSPECTOR ST EMERGENCY 87753 [facility] ANYA 5 5 EMERGENCY MALCOM DEPARTMEN T VISIT PHYSICIAN HIGH/URGE S [facility] ST - 5 5 ROGER OUTPATIEN MED CTR T WATER INSPECTOR ST OFFICE 21692 ST [facility] NAN OUTPATIEN 5 5 ROGER T VISIT 15 PHYSICIAN MINUTES S OFFICE 35063 ST KENISHA OUTPATIEN 4 4 ROGER FIORDALIZA T VISIT 15 PHYSICIAN MINUTES S OFFICE 69537 [facility] OUT[facility] 4 4 LTH LTH T VISIT [facility] 15 IC CTR IC CTR [facility] ST. - 4 4 ROGER OUTPATIEN [facility] ST. - 4 4 ROGER OUTPATIEN [facility] OFFICE 27642 [facility] OUTPATIEN 4 4 LTH LT T VISIT [facility]OP[facility]ED ORTHOPAED 15 IC CTR IC CTR [facility] ST - 4 4 ROGER OUTPATIEN MED CTR T WATER INSPECTOR ST OFFICE 48636 ST [facility] NAN OUTPATIEN 4 4 ROGER T VISIT 15 PHYSICIAN MINUTES S OFFICE 74049 SEDA SEDA OUTPATIEN [address] [facility] 60 MINUTES [facility] ST - 4 4 ROGER INPATIENT MED CTR WATER INSPECTOR ST OFFICE 40355 ST JESSICA OUTPATIEN 4 4 ROGER MAR T VISIT 15 PHYSICIAN MINUTES [facility] ST - 4 4 ROGER OUTPATIEN MED CTR T WATER INSPECTOR ST OFFICE 47704 ST JESSICA OUTPATIEN 4 4 ROGER MAR T VISIT 15 PHYSICIAN MINUTES [facility] ST - 4 4 ROGER OUTPATIEN MED CTR T WATER INSPECTOR ST OFFICE 00424 ST JESSICA OUTPATIEN 4 4 ROGER MAR T VISIT 15 PHYSICIAN MINUTES S OFFICE 88582 ST JESSICA OUTPATIEN 4 4 ROGER MAR T VISIT 15 PHYSICIAN [address] [facility] - 4 4 ROGER OUTPATIEN MED CTR T WATER INSPECTOR ST OFFICE 09908 ST JESSICA OUTPATIEN 4 4 ROGER MAR T VISIT 15 PHYSICIAN MINUTES S OFFICE 53376 ST JESSICA OUTPATIEN 4 4 ROGER MAR T VISIT 15 PHYSICIAN MINUTES S OFFICE 90492 ST JESSICA OUTPATIEN 4 4 ROGER MAR T VISIT 15 PHYSICIAN MINUTES S [facility] ST - 4 4 ROGER OUTPATIEN MED CTR T WATER INSPECTOR ST OFFICE 73746 ST OUTPATIEN 4 4 ROGER T VISIT MED CTR [address] MINUTES OFFICE 99780 ST MAURA FIORDALIZA OUTPATIEN 4 4 ROGER T VISIT 15 PHYSICIAN MINUTES S OFFICE 99389 ST JESSICA OUTPATIEN 4 4 ROGER MAR T VISIT 15 PHYSICIAN MINUTES S OFFICE 02196 ST ESTEBAN EDNA OUTPATIEN 4 4 ROGER T VISIT [address] [facility] - 4 4 ROGER OUTPATIEN [facility] ST - 4 4 ROGER OUTPATIEN MED CTR T WATER INSPECTOR OFFICE 85422 ST ESTEBAN EDNA OUTPATIEN 4 4 ROGER T VISIT 15 PHYSICIAN MINUTES [facility] ST - 4 4 ROGER OUTPATIEN MED CTR T WATER INSPECTOR OFFICE 26168 [facility] OUTPATIEN 4 4 ROGER LIS T VISIT [address] PHYSIC[address] [facility] - 4 4 ROGER OUTPATIEN MED CTR T WATER INSPECTOR OFFICE 83347 [facility] OUTPATIEN 4 4 ROGER LIS T VISIT [address] - 4 4 ROGER OUTPATIEN MED CTR T WATER INSPECTOR [facility] ST - 3 3 ROGER OUTPATIEN MED CTR T WATER INSPECTOR ST EMERGENCY [address]42 ST 3 3 ROGER DEPARTMEN MED CTR T VISIT WATER INSPECTOR ST HIGH/URGE NT SEVERITY EMERGENCY 28769 ST RICHARD DEPT 3 3 ROGER N GLADIS VISIT MED CTR HIGH SEVERITY& THREAT FUNCJ OFFICE 33952 [facility] [facility] OUTPATIEN 3 3 N CO N CO T VISIT HEALTH HEALTH 15 CENTER [facility] ST - 1 1 ROGER OUTPATIEN FT T ANA OFFICE 43123 JULISSA COSTA OUTPATIEN 1 1 NOR NOR T VISIT 15 MINUTES OFFICE 14224 KENISHA DE OUTPATIEN 1 1 FIORDALIZA FIORDALIZA T VISIT [address] - 1 1 ROGER OUTPATIEN MED CTR T [facility] ST[facility] - 1 1 ROGER OUTPATIEN [facility] ST - 1 1 ROGER OUTPATIEN MED CTR T WATER INSPECTOR EMERGENCY 15504 RICHARDSO RICHARDSO 1 1 N GLADIS N GLADIS DEPARTMEN T VISIT HIGH/URGE NT SEVERITY OFFICE 86437 [facility] T [facility] R[facility]ER OUTPATIEN T MEDICALCE [facility] ST - 1 1 ROGER INPATIENT MEDICALCE NTER OFFICE 80045 [facility] OUTPATIEN 1 1 WOMEN'S KIR T VISIT HEALTH [address] - 1 1 ROGER OUTPATIEN T MEDICALCE NTER OFFICE 93852 OUTPATIEN 1 1 ROGER T VISIT 40 MEDICALCE MINUTES NTER OFFICE 42520 [facility] OUTPATIEN 1 1 WOMEN'S GAR T VISIT HEALTH [address] - 1 1 ROGER OUTPATIEN T MEDICALCE NTER OFFICE 55169 OUTPATIEN 1 1 ROGER T VISIT 40 MEDICALCE MINUTES NT [facility] - 1 1 ROGER OUTPATIEN NAOMIE T OFFICE 76420 [facility] 1 WOMEN'S BRAD T VISIT HEALTH 15 ASS MINUTES OFFICE 00993 [facility] 1 1 WOMEN'S GAR T VISIT HEALTH [address] - 1 1 ROGER OUTPATIEN T MEDICALCE NTER OFFICE 81032 [facility] 1 1 ROGER T VISIT 40 MEDICALCE MINUTES NTER OFFICE 23493 [facility] 1 1 WOMEN'S BRAD T VISIT HEALTH 15 ASS MINUTES OFFICE 79230 [facility] 1 1 ROGER T VISIT 40 MEDICALCE MINUTES [facility] ST - 1 1 ROGER OUTPATIEN T MEDICALCE [facility] - 1 1 ROGER OUTPATIEN T MEDICALCE NT OFFICE 95882 [facility] 1 1 WOMEN'S GAR T VISIT HEALTH [address] - 1 1 ROGER OUTPATIEN T MEDICALCE NT OFFICE 57887 [facility] 1 1 ROGER T VISIT 40 MEDICALCE MINUTES NTER OFFICE 35861 [facility] 1 1 WOMEN'S GAR T VISIT HEALTH 15 ASS MINUTES OFFICE 91842 [facility] 1 1 WOMEN'S GAR T VISIT HEALTH 15 ASS MINUTES OFFICE 16175 [facility] 1 1 WOMEN'S GAR T VISIT HEALTH 15 ASS MINUTES OFFICE 62878 [facility] OUTPATIEN 1 1 WOMEN'S GAR T VISIT HEALTH [address] - 1 1 ROGER OUTPATIEN T [facility] ST. - 1 1 ROGER GARCÍAPATIEN NAOMIE T EMERGENCY 93796 [facility] 1 1 ROGER JANICE DEPARTMEN MED CTR T VISIT HIGH/URGE NT SEVERITY [facility]PITAL ST[facility] - 1 1 ROGER GARCÍAPATIEN NAOMIE T OFFICE 47575 [facility] OUT[facility]IEN 1 1 WOMEN'S KIR T VISIT HEALTH 15 ASS MINUTES OFFICE 72297 [facility] OUTPATIEN 1 1 ROGER BULL T VISIT 25 PHYSICIAN MINUTES [facility] ST. - 1 1 ROGER GARCÍAPATIEN NAOMIE T EMERGENCY 02138 ST [facility]COM 1 1 ROGER DEPARTMEN MED CTR T VISIT MODERATE SEVERITY OFFICE 17210 [facility] OUTPATIEN 1 1 WOMEN'S BRAD T VISIT HEALTH 15 ASS MINUTES OFFICE 09174 [facility] OUT[facility] 1 1 WOMEN'S MALCOM T VISIT HEALTH 15 ASS MINUTES OFFICE 47017 [facility] OUT[facility] 1 1 WOMEN'S BRAD T VISIT HEALTH 15 ASS MINUTES OFFICE [id number] [facility] OUTPATI[facility] 1 1 WOMEN'S GAR T NEW 45 HEALTH MINUTES ASS EMERGENCY [id number] [facility] MALCOM 1 1 [facility] T VISIT HIGH/URGE NT SEVERITY OFFICE 34744 [facility]AN OUTPATIEN 1 1 ROGER T VISIT 15 PHYSICIAN MINUTES S OFFICE 29362 [facility] OUT[facility]EN 1 1 N CO N CO T NEW 20 [facility] [place]
--- OUTSIDE RECORDS SUMMARY | 2016-10-31 06:23 | External Medical Summary Rpt ---
Author Author , Organization [employer] Address Unknown Phone Unavailable Care Team Providers Care Motor Grader Operator Name Role Phone BEAVEN BRAD, BEAVEN Unavailable Unavailable BRAD JUÁREZ KIR, JUÁREZ Unavailable Unavailable KIR [facility] Unavailable Unavailable [facility], [facility] FIELD JANICE, FIELD JANICE Unavailable Unavailable [facility] Unavailable Unavailable SERVICE, [facility] Unavailable Unavailable SERVICE, [facility] JACQUES JANICE, JACQUES Unavailable Unavailable JANICE [facility] Un[facility] Unavailable Unavailable [facility], [facility] Unavailable Unavailable PHYSICIANS, [facility] [...] [facility], Unavailable Unavailable [facility] HURST MARTA, HURST MARTA Unavailable Unavailable REA GAR, REA Unavailable Unavailable BERKLEY MANCERA, Unavailable Unavailable ROWDY MANCERA ESTEBAN EDNA, ESTEBAN EDNA Unavailable Unavailable LAMBRASHMI GARCIA, LAMBRASHMI Unavailable Unavailable MELISSA RAMOS Unavailable Unavailable ML [facility] ANJUM, Unavailable Unavailable [facility] Unavailable Un[facility] Un[facility] Unavailable [facility], [facility], [facility] II Unavailable Unavailable [facility] Unavailable Unavailable CENTER, [facility], , Unavailable Unavailable [facility], [facility] Unavailable Unavailable LABORATORY, [facility] Unavailable Unavailable OF NOT, [facility]available [facility]available OF [facility], [facility] Unavailable Unavailable [facility], [facility] [...] [facility] Unavailable Unavailable [facility] Un[facility] Unavailable Unavailable [facility]ICIANS, [facility] Unavailable Unavailable [facility]LA, [facility], Unavailable Unavailable [facility] MAURA STEPHENSON Unavailable Unavailable [facility] # Unavailable Unavailable 4, [facility] # 4 [facility] Unavailable Unavailable [facility], [facility], Unavailable Unavailable [facility] Unavailable Unavailable ME, [facility] TONY DEW, TONY DEW Unavailable Unavailable WOESTE MALCOM, WOESTE Unavailable Unavailable MALCOM SAMANTA MALCOM, SAMANTA MALCOM Unavailable Unavailable Purpose Continuity of Care Document - 08-11-2010 through 2016 Problems Code Diagnosis DOS Provider Status N393 STRESS 10-06-2016 [facility] INCONTINENC PHYSICIANS E FEMALE GROUP MALE N819 FEMALE 10-06-2016 [facility] GENITAL PHYSICIANS PROLAPSE GROUP UNSPECIFIED N3644 MUSCULAR 09-05-2016 [facility] DISORDERS PHYSICIANS OF URETHRA GROUP [id number] ENCOUNTER 08-22-2016 [facility] CRAB BACKER EXAM PHYSICIANS GENERAL RTN GROUP W/O ABNORMAL FIND [id number] FOREIGN 08-20-2016 ST BODY IN [facility] LEFT EAR PHYSICIANS INITIAL ENCOUNTER B9789 OTH VIRAL 07-30-2016 ST AGENT CAUSE [facility] DISEASES PHYSICIANS CLASSIFIED ELSW J069 ACUTE UPPER 07-30-2016 [facility] RESPIRATORY PHYSICIANS INFECTION UNSPECIFIED T148 OTHER 11-27-2015 ST INJURY OF [facility] UNSPECIFIED PHYSICIANS BODY REGION [id number] OTHER EARLY 11-27-2015 ST [facility] COMPLICATIO PHYSICIANS NS TRAUMA INITIAL ENCNTR Z4802 ENCOUNTER 11-27-2015 ST FOR REMOVAL [facility] OF SUTURES PHYSICIANS M7989 OTHER 11-20-2015 [facility] SPECIFIED [facility]EL SOFT TISSUE DISORDERS [id number] LAC W/O FB 11-20-2015 [facility] UNS FINGER EMERGENCY W/O DAMAGE PHYSICIANS NAIL INITIAL [id number] PUNCTURE 11-20-2015 [facility] WOUND W/O EMERGENCY FB UNS HAND PHYSICIANS INITIAL ENC [id number] OPEN BITE 11-20-2015 GULUZIAN OF RIGHT RENETTA WRIST INITIAL ENCOUNTER [id number] BITTEN BY 11-20-2015 [facility] DOG INITIAL EMERGENCY ENCOUNTER PHYSICIANS N8320 UNSPECIFIED 10-16-2015 [facility] CYSTS INC Z302 ENCOUNTER 10-16-2015 [facility] STERILIZATI INC ON F91525 ENCOUNTER 10-12-2015 [facility] PREPROCEDUR INC AL LABORATORY EXAM N898 OTHER 10-05-2015 [facility] SPECIFIED [facility]ICIANS, NONINFLAMMA PLLC TORY DISORDERS VAGINA N939 ABNORMAL 10-05-2015 [facility] UTERINE & AMBULANCE VAGINAL SERVICE BLEEDING UNSPECIFIED O021 MISSED 10-05-2015 [facility] O034 INCOMPLETE 10-05-2015 [facility] SPONTANEOUS [facility] W/O COMPLICATIO N O2691 10-05-2015 [facility], CONDITIONS PLLC UNS 1ST TRIMESTER R109 UNSPECIFIED 10-05-2015 [facility] ABDOMINAL AMBULANCE PAIN SERVICE O200 THREATENED 10-02-2015 [facility] PHYSICIANS GROUP N925 OTHER 09-10-2015 JACKIE MCDONALD MD IRREGULAR MENSTRUATIO N N760 ACUTE 09-07-2015 JACKIE Hubbard VAGINITIS TAMARA SINGLETON Z3009 ENCOUNTER 09-07-2015 JACKIE Hubbard [facility] GENERAL TAMARA SINGLETON CRM TECHNICAL LEAD&ADV ICE CONTRACEPT O80 ENCOUNTER 04-24-2015 ST FOR [facility] FULL-TERM PHYSICIANS UNCOMPLICAT ED DELIVERY Z370 SINGLE LIVE 04-24-2015 ST [facility] PHYSICIANS Z3A40 40 WEEKS 04-24-2015 ST GESTATION [facility] OF PHYSICIANS [id number] DECREASED 04-21-2015 ST [facility] MOVEMENTS PHYSICIANS THIRD TRI FETUS 1 Z3483 ENC 04-21-2015 ST SUPERVISION [facility] OTH NORMAL PHYSICIANS 3 TRIMESTER Z3A39 39 WEEKS 04-21-2015 ST GESTATION [facility] OF PHYSICIANS O622 OTHER 04-13-2015 ST UTERINE [facility] INERTIA PHYSICIANS O628 OTHER 04-13-2015 ST ABNORMALITI [facility] ES OF MED CTR [facility] FORCES OF ST LABOR Z0371 ENCOUNTER 04-13-2015 ST SUSP PROB [facility] AMNIOTIC PHYSICIANS CAV MEMB RULED OUT Z36 ENCOUNTER 04-13-2015 ST FOR [facility] MED CTR [facility] HELPER SCREENING ST OF MOTHER Z3A38 38 WEEKS 04-13-2015 ST GESTATION ROG[facility] OF PHYSICIANS V221 SUPERVISION 03-17-2015 ST OF OTHER ROGER NORMAL PHYSICIANS 36914 THREATENED 03-12-2015 ST PREMATURE [facility] LABOR MED CTR [facility]PER ANTEPARTUM ST V2889 OTHER 03-12-2015 ST SPECIFIED [facility] MED CTR [facility] [place] ST [address] OBESITY, 03-06-2015 ST UNSPECIFIED [facility] MED CTR [facility] 29833 OTHER 03-06-2015 [facility] SPECIFED W[facility] LLC COMPLICATIO N ANTEPARTUM 82350 TOB USE D/O 03-06-2015 ST COMP PG R[facility] /PP MED CTR [facility] HELPER ANTEPARTM ST COND/COMP 20336 OBES COMP 03-06-2015 ST PG [facility] /THE MED CTR [facility]TER HELPER PP ST ANTEPARTUM COND/COMP V8533 BODY MASS 03-06-2015 ST INDEX [facility]OG[facility] 33.0-33.9 MED CTR [facility] ADULT ST 4610 ACUTE 12-17-2014 ST MAXILLARY [facility] SINUSITIS PHYSICIANS V222 12-17-2014 STATE, [facility] INCIDENTAL PHYSICIANS 95762 UNS 12-03-2014 [facility] ABNORM MGMT W. LLC MOTH ANTPRTM COND/COMP V2389 SUPERVISION 09-29-2014 ST OF OTHER [facility] HIGH-RISK MED CTR [facility] 5589 OTH&UNSPEC 09-17-2014 [facility] NONINFECTIO EMERGENCY US PHYSICIANS GASTROENTER ITIS&COLITI S V7242 09-11-2014 ST EXAMINATION [facility] OR TEST PHYSICIANS POSITIVE RESULT 3829 UNSPECIFIED 07-16-2014 ST OTITIS [facility] MEDIA PHYSICIANS 4619 ACUTE 07-16-2014 ST SINUSITIS, [facility] UNSPECIFIED PHYSICIANS 4871 INFLUENZA 06-04-2014 ST WITH OTHER ROGER RESPIRATORY PHYSICIANS MANIFESTATI ONS 09775 FEVER 06-04-2014 ST UNSPECIFIED ROGER PHYSICIANS 74178 PAIN IN 05-27-2014 [facility] THIGH 7245 UNSPECIFIED 05-19-2014 ST. BACKACHE R[facility]ER NAOMIE V571 OTHER 05-19-2014 ST. PHYSICAL [facility] THERAPY NAOMIE 53966 SCOLIOSIS , 05-06-2014 [facility] 6260 ABSENCE OF 03-31-2014 ST MENSTRUATIO ROGER N PHYSICIANS V0481 NEED 03-31-2014 ST PROPHYLACTI ROGER C PHYSICIANS VACCINATION &INOCULATIO N FLU V2549 SURVEILLANC 01-31-2014 [facility] ALP E OTH PREV PRSC CONTRACEPT METHOD 28748 ASTHMA, 01-05-2014 ST UNSPECIFIED [facility] , MED CTR [facility] HELPER UNSPECIFIED ST STATUS 17980 OTH CURRENT 01-05-2014 ST MATERNAL [facility] CCE MED CTR [facility] HELPER W/DELIVERY ST 39736 TOBACCO USE 01-05-2014 ST D/O COMP [facility] PG MED CTR [facility] CHILDBIRTH/ ST PP DELIVERED 650 NORMAL 01-05-2014 ST DELIVERY [facility] PHYSICIANS 01969 OTHER 01-05-2014 ST SPECIFIED [facility] TRAUMA MED CTR [facility] HELPER PERINEUM&VU ST LVA W/DELIVERY V270 OUTCOME OF 01-05-2014 ST DELIVERY [facility] SINGLE PHYSICIANS LIVEBORN 66855 OTHER 12-29-2013 ST THREATENED [facility] LABOR, MED CTR [facility] HELPER ANTEPARTUM ST V289 UNSPECIFIED 12-29-2013 ST [facility] SCREENING MED CTR [facility] [facility] [place] [address] [address]48 DECR 11-02-2013 ST MOVMNTS [facility] MGMT MOTH MED CTR [facility] HELPER ANTPRTM ST COND/COMP V036 NEED PROPH 10-29-2013 ST VACC&INOCUL ROGER AT AGAINST PHYSICIANS PERTUSS ALONE V061 NEED PROPH 10-29-2013 ST VAC W/COMB [facility] DIPHTH-TETA PHYSICIANS NUS-PERTUSS [facility] V8531 BODY MASS 09-11-2013 ST INDEX [facility]OG[facility] 31.0-31.9 MED CTR [facility] [place] [facility] 50036 OTH SPEC 08-12-2013 ST MALPSTN/MAL [facility] PRESENTATIO MED CTR [facility] HELPER N FETUS ST ANTPRTM 59066 ABDOMINAL 06-01-2013 [facility] UNSPECIFIED OF [facility] SITE 65373 OTH CURRENT 05-31-2013 ST MAT CONDS [facility] CLASSIFIABL MED CTR [facility] HELPER E ELSW ST ANTPRTM 40844 ABDOMINAL 05-31-2013 ST PAIN RIGHT [facility] LOWER MED CTR QUADRANT 42131 CALCU 05-26-2011 ST GALLBLADD ROGER W/O MENTION PHYSICIANS CHOLECYST/O BST V5869 LONG-TERM 05-26-2011 ST (CURRENT) [facility]OG[facility] USE OF FT ANA OTHER MEDICATIONS 87338 OTHER COMPL 05-13-2011 ST. OF R[facility]ER PUERPERIUM NAOMIE PP COND/COMPL 18937 ABDOMINAL 05-13-2011 ST. PAIN RIGHT [facility] UPPER NAOMIE QUADRANT 29223 LEUKOCYTOSI 05-10-2011 ST S [facility] UNSPECIFIED MED CTR [facility] ST 7906 OTHER 05-10-2011 ST ABNORMAL [facility] BLOOD MED CTR [facility] HELPER CHEMISTRY ST V242 ROUTINE 04-25-2011 [place] [address] POST TERM 04-22-2011 [facility] PG UNSPEC WOMEN'S EPIS HEALTH ASS CARE/NOT APPLIC 19817 04-22-2011 [facility] DISTRESS WOMEN'S AFFCT MGMT HEALTH ASS MOTH UNS EPIS CARE 58091 ABN FETL 04-22-2011 ST HRT [facility] RATE/RHYTHM MEDICALCENT DELIV W/WO ER ANTPRTM COND 18356 OTH&UNS CRD 04-22-2011 ST ENTANGL [facility] W/O COMPRS MEDICALCENT COMP L&D ER DELIV 49093 OTHER 04-18-2011 [facility] THREATENED WOMEN'S LABOR HEALTH ASS UNSPEC EPISODE CARE 88599 PREMATURE 04-18-2011 [facility] RUPTURE MATERNAL MEMB PG ME UNSPEC EPIS CARE V239 UNSPECIFIED 04-18-2011 [facility] HIGH-RISK MATERNAL ME V220 SUPERVISION 04-14-2011 [facility] OF NORMAL [facility] 62416 EFFUSION OF 04-07-2011 ST. ANKLE AND ROGER FOOT JOINT NAOMIE 55763 SWELLING OF 04-07-2011 ST. LIMB ROGER NAOMIE V7189 OBSERVATION 04-07-2011 ST. OTHER ROGER SPECIFIED NAOMIE SUSPECTED CONDITIONS V141 PERSONAL 03-13-2011 HISTORY [facility] OTHER ER ANTIBIOTIC AGENT 541 APPENDICITI 01-05-2011 [facility] S, [facility] UNQUALIFIED PSC 6259 UNSPEC 01-05-2011 [facility] SYMPTOM WOMEN'S ASSOC HEALTH ASS W/FEMALE GENITAL ORGANS V143 PERSONAL 01-04-2011 HISTORY [facility] ER ANTI-INFECT MANDI AGT 69326 ABDOMINAL 01-03-2011 ST. PAIN OTHER [facility] SPECIFIED NAOMIE SITE V1582 PERS HX 01-03-2011 . TOBACCO USE [facility] PRESENTING NAOMIE [facility]ZAR[facility] 4660 ACUTE 12-01-2010 BRONCHITIS [facility] 40632 UNSPECIFIED 11-28-2010 . [facility] ARTHROPATHY NAOMIE SITE UNSPECIFIED 9150 ABRASION/FR 11-28-2010 . ICTION BURN [facility] FINGER W/O NAOMIE MENTION INF 9233 CONTUSION 11-28-2010 ST. OF FINGER R[facility]ER NAOMIE V148 PERSONAL 11-28-2010 . HISTORY [facility] ALLERGY OT NAOMIE SPEC MEDICINAL AGTS V7240 09-14-2010 [facility] EXAMINATION WOMEN'S /TEST HEALTH ASS UNCONFIRMED 7840 HEADACHE 09-04-2010 [facility] 00589 UNSPEC COMP 09-02-2010 [facility] UNSPEC PHYSICIANS EPISODE CARE Medications Na ND [...] 10 0- 7- 00 00 L ve AL 47 20 20 66 CA 01 17 [...] MA TA CY BL # ET 4 TN 00 02 03 18 9 00 TO [...] Procedure DOS Code Location Performer Comment CULTURE 04765 [facility] HAR[facility] CHLAMYDIA 7 PHYSICIAN ANY S GROUP SOURCE IADNA 60868 [facility] NEISSERIA 7 PHYSICIAN S GROUP [place] T[place] [address] [place] VARELA, XTRNL 7 ROGER MAJANO, DO AUDITORY CANAL W/O PHYSICIAN ANES S SIMPLE 44387 [facility] SCOTT REPAIR 6 EMERGENCY SCALP/NEC K/AX/KAELA PHYSICIAN T/TRUNK S 2.5CM/< RADEX 54980 G[facility] GULUZIAN WRIST 6 RENETTA RENETTA COMPLETE MINIMUM 3 VIEWS LAPS SURG 68653 JACKIE MCDONALD W/ASPIR 6 TAMARA SINGLETON EZE CAVITY/CY ST SINGLE/MU LTIPLE BLOOD 64314 [facility] 6 [facility] HEMOGLOBI INC INC N INJECTION J2710 [facility] MENCHACAON [facility] NEOSTIGMI INC INC NE METHYLSUL FATE UP TO 0.5 MG COLLECTIO 98668 [facility] N VENOUS 6 [facility] BLOOD INC INC VENIPUNCT URE INJECTION J2405 [facility] FERNANDO 6 [facility] ONDANSETR INC INC ON HCL PER 1 MG ANESTHESI 23566 [facility] EMIR Falcon 6 ANESTH INTRAPERI OF THE TONEAL BLUE LOWER ABD W/LAPS NOS BLOOD 82437 [facility] COUNT 6 [facility] HEMATOCRI INC INC T LAPAROSCO 81350 [facility] PY 6 [facility] FULGURATI INC INC ON OVIDUCTS INJECTION J0131 [facility] 6 [facility] ACETAMINO INC INC PHEN 10 MG URNLS DIP 64734 [facility] [place] 6 [facility] STICK/TAB INC INC LET REAGENT AUTO MICROSCOP Y COLLECTIO 24692 [facility] N VENOUS 6 [facility] BLOOD INC INC VENIPUNCT URE BLOOD 16892 [facility] K[facility] COUNT 6 [facility] COMPLETE INC INC AUTO&AUTO DIFRNTL WBC GONADOTRO 94406 [facility] K[facility] PIN 6 [facility] CHORIONIC INC INC QUALITATI VE BLOOD 79164 [facility] K[facility] COUNT 6 [facility] HEMOGLOBI INC INC N ANESTHESI 73794 [facility] FERCHO A 6 ANESTH SHE INCOMPLET OF THE E/MISSED BLUE COLLECTIO 28506 [facility] N VENOUS 6 [facility] BLOOD INC INC VENIPUNCT URE BLOOD 70630 [facility] COUNT 6 [facility] [place] [address] [facility] TAMARA INCOMPLET 6 PHYSICIAN EZE E S GROUP ANY TRIMESTER SURGICAL INJECTION J2405 [facility] 6 [facility] ONDANSETR INC INC [place] HCL [place] 1 [place] [address] [facility] SURG 6 [facility] PATHOLOGY GROSS&VENKATESH ROSCOPIC EXAM GROUND A0425 [facility] 6 AMBULANCE AMBULANCE PER SERVICE SERVICE STATUTE MILE AMBULANCE A0429 [facility] SERVICE 6 AMBULANCE AMBULANCE BLS SERVICE SERVICE EMERGENCY TRANSPORT GONADOTRO 02814 [facility] PIN 6 [facility] CHORIONIC INC INC QUANTITAT MANDI COLLECTIO 62253 [facility] N VENOUS 6 [facility] BLOOD INC INC VENIPUNCT URE GONADOTRO 27087 [facility] PIN 6 [facility] CHORIONIC INC INC QUANTITAT MANDI BLOOD 17238 [facility] TYPING 6 [facility] SEROLOGIC INC INC ABO BLOOD 67519 [facility] TYPING 6 [facility] SEROLOGIC INC INC RH (D) US PREG 91646 [facility] UTERUS 6 PHYSICIAN EZE REAL TIME S GROUP W/IMAGE DCMTN TRANSVAG URINE 45130 [facility] HAR[facility]L 6 PHYSICIAN EZE TEST S GROUP VISUAL COLOR CMPRSN METHS SMR PRIM 36170 JACKIE MCDONALD SRC WET 6 TAMARA SINGLETON EZE MOUNT NFCT AGT IADNA 00475 BIO BIO CHLAMYDIA 6 REFERNCE REFERNCE LABORATOR LABORATOR TRACHOMAT IES IES IS AMPLIFIED PROBE TQ CYTP 44676 BIO BIO CERV/VAG 6 REFERNCE REFERNCE AUTO THIN LABORATOR LABORATOR LAYER IES IES PREP MNL SCREEN IADNA 07764 JACKIE Hubbard NEISSERIA 6 TAMARA MCDONALD MD GONORRHOE AE DIRECT PROBE TQ IADNA 36120 BIO BIO NEISSERIA 6 REFERNCE REFERNCE LABORATOR LABORATOR GONORRHOE IES IES AE AMPLIFIED PROBE TQ IADNA NOS 02039 BIO BIO 6 REFERNCE REFERNCE AMPLIFIED LABORATOR LABORATOR PROBE TQ IES IES EACH ORGANISM CULTURE 03610 JACKIE MCDONALD CHLAMYDIA 6 TAMARA SINGLETON EZE ANY SOURCE IADNA 81229 BIO BIO TRICHOMON 6 REFERNCE REFERNCE LABORATOR LABORATOR VAGINALIS IES IES AMPLIFIED PROBE TECH VAGINAL 63295 ST ESTEBAN EDNA DELIVERY 5 ROG[facility] ONLY W/POSTPAR PHYSICIAN MIKE CARE S NEURAXIAL 28286 INDEPENDE DESCH JANICE LABOR 5 NT ANALG/ANE ANESTHESI S PLND OLOGIST VAGINAL DELIVERY 45940 ST JESSICA NONSTRESS 5 ROGER MAR TEST PHYSICIAN S [address]152 ST JUNIOR LIL NONSTRESS 5 [facility] TEST PHYSICIAN S HOSPITAL G0463 ST ST OUTPATIEN 5 ROGER ROGER T CLIN MED CTR MED CTR VISIT [facility] CUTTER HELPER ST ASSESS & MGMT PT IADNA [address] CHLAMYDIA 5 [facility] R[facility] MED CTR MED CTR TRACHOMAT [facility] GLASS CUTTER HELPER ST IS AMPLIFIED PROBE TQ IADNA [address] NEISSERIA 5 [facility]ER R[facility] MED CTR MED CTR GONORRHOE GLASS C[facility]TER [facility]PER ST [facility] [place] [address] NONSTRESS 5 ROGER ROGER TEST MED CTR MED CTR GL[facility] THERAPEUT [address] IC 5 ROGER ROGER PROPHYLAC MED CTR MED CTR TIC/DX [facility]ASS [facility] [address] ST INJECTION SUBQ/[place] [address] INFUSION 5 ROGER ORGER HYDRATION MED CTR MED CTR INITIAL [facility] GLASS CUTTER HEL[address] ST 31 MIN-[address] 5 ROGER ROGER TERBUTALI MED CTR MED CTR NE GLASS [facility]TER [facility] GLASS C[facility]TER HEL[facility] ST SULFATE UP TO [address] 5 ROGER ROGER STICK/TAB MED CTR MED CTR LET [facility] 23315 [facility] UTERUS 5 W. LLC REAL TIME F/U TRNSABDL PER FETUS GLUCOSE [address] [facility] 5 [facility] ROGER GLUCOSE NAOMIE NAOMIE DOSE BLOOD [address] COUNT 5 ROGER ROGER COMPLETE NAOMIE NAOMIE AUTO&AUTO DIFRNTL WBC COLLECTIO [address] N VENOUS 5 ROGER ROGER BLOOD NAOMIE NAOMIE VENIPUNCT URE US PREG 87357 [facility] UTERUS 5 W. LLC DON W/DETAIL RAJINDER 1ST GESTATION IADNA [address] NEISSERIA 5 [facility] MED CTR MED CTR GONORRHOE [facility] GLASS CUTTER HEL[facility] ST AE AMPLIFIED PROBE TQ IADNA [address] CHLAMYDIA 5 [facility] MED CTR MED CTR TRACHOMAT GLASS C[facility]TER HELPER ST GLASS CUTTER HEL[facility] ST IS AMPLIFIED PROBE TQ CYTP C/V [address] AUTO THIN 5 [facility] MED CTR MED CTR PREPJ SCR [facility] C[facility]TER HELPER ST MNL RESCR PHYS CULTURE [address] BACTERIAL 5 [facility] CTR MED CTR QUANTTATI GLASS CUTTER HELPER ST GLASS CUTTER HELPER ST VE COLONY COUNT URINE URINE 86244 ST JESSICA 5 ROGER MAR TEST VISUAL PHYSICIAN COLOR S CMPRSN METHS IAADIADOO 28827 KENISHA 4 ROGER FIORDALIZA INFLUENZA PHYSICIAN S APPL 73150 [facility]. MODALITY 4 [facility]ER ROGER / [facility] NAOMIE NAOMIE ELEC STIMJ UNATTENDE D THERAPEUT 34871 [facility] IC PX 1/> 4 [facility] NAOMIE NAOMIE EACH 15 MIN EXERCISES PHYSICAL 60888 . . THERAPY 4 [facility] EVALUATIO NAOMIE NAOMIE N THERAPEUT 74115 . . IC PX 1/> 4 [facility] NAOMIE NAOMIE EACH 15 MIN EXERCISES RADEX HIP 45486 [facility] 4 LTH LTH UNILATERA ORTHOPAED ORTHOPAED L 1 VIEW IC [address] IC CTR RADIOLOGI 28901 [facility] C 4 LTH LTH EXAMINATI ORTHOPAED ORTHOPAED ON PELVIS IC CTR IC CTR 1/2 VIEWS IM ADM [address]4 ST [facility] NAN PRQ ID 4 ROGER SUBQ/IM NJXS 1 PHYSICIAN VACCINE S GONADOTRO [address] PIN 4 ROGER ROGER CHORIONIC MED CTR MED CTR GL[facility] CUTTER HEL[facility] GLASS CUTTER HELPER ST QUALITATI VE IIV4 VACC [address] [facility] NAN SPLIT 4 ROGER VIRUS 0.5 ML DOS PHYSICIAN FOR IM S USE VAGINAL 75486 ST JESSICA DELIVERY 4 ROGER SHAHID ONLY W/POSTPAR PHYSICIAN MIKE CARE S OTHER [address] ARTIFICIA 4 ROGER ROGER L RUPTURE MED CTR MED CTR OF GLASS CUTTER HELPER ST GLASS CUTTER HELPER ST MEMBRANES OTHER [address] MANUALLY 4 ROGER ROGER ASSISTED MED CTR MED CTR DELIVERY GL[facility] [address] [address] NONSTRESS 4 ROGER ROGER TEST MED CTR MED CTR GLASS [facility] [facility] [address] [address] NONSTRESS 4 ROGER ROGER TEST MED CTR MED [facility] [address] IAD[address] NEISSERIA 4 ROGER ROGER MED CTR MED CTR GONORRHOE [facility] CUTTER HELPER ST AE AMPLIFIED PROBE TQ IADNA [address] CHLAMYDIA 4 ROGER ROGER MED CTR MED CTR TRACHOMAT [facility]ASS CUTTER HELPER ST GLASS CUTTER HELPER ST IS AMPLIFIED PROBE TQ IADNA [address] STREPTOCO 4 ROGER ROGER CCUS MED CTR MED CTR GROUP B [facility] C[facility]TER HELPER [facility] GLASS CUTTER HELPER ST AMPLIFIED PROBE TQ TDAP [address] ST [place] FIORDALIZA VACCINE 7 4 ROGER YRS/> IM PHYSICIAN S COLLECTIO [address] N VENOUS 4 ROGER ROGER BLOOD ELA DUBOISENCE VENIPUNCT URE BLOOD [address] COUNT 4 ROEGR ROGER COMPLETE ELA MAHMOOD AUTO&AUTO DIFRNTL WBC GLUCOSE [address] POST 4 ROGER ROGER GLUCOSE ELA [place]LA DOSE [place] PREG 47998 [facility] COPPAGE UTERUS 4 MATERNAL KRI REAL TIME AND F/U TRNSABDL PER FETUS US PREG 18081 [facility] COPPAGE UTERUS 4 MATERNAL KRI W/DETAIL AND RAJINDER 1ST GESTATION URNLS DIP 32457 ST DOWNTON 4 ROGER LIS STICK/TAB LET RGNT PHYSICIAN NON-AUTO S W/O MICRSCP CYTP C/V [address] AUTO THIN 4 ROGER ROGER LYR MED CTR MED CTR PREPJ SCR [facility] C[facility]TER HELPER [facility] CUTTER HELPER ST MNL RESCR PHYS IADNA [address] CHLAMYDIA 4 ROGER ROGER MED CTR MED CTR TRACHOMAT [facility] C[facility]TER HELPER ST GLASS CUTTER HELPER ST IS AMPLIFIED PROBE TQ IADNA [address] ST [address] NEISSERIA 4 ROGER ROGER MED CTR MED CTR GONORRHOE [facility]ASS CUTTER HELPER ST GLASS CUTTER HELPER ST AE AMPLIFIED PROBE TQ ANTIBODY [address] SCREEN 4 ROGER DURAN RBC EACH MED CTR MED CTR SERUM [facility]PER [facility] CUTTER HELPER ST TECHNIQUE BLOOD [address] TYPING 4 ROGER DAYTH SEROLOGIC MED CTR MED CTR ABO [facility] C[facility]TER HELPER ST [facility] C[facility] HELPER ST BLOOD [address] TYPING 4 ROGER ROGER SEROLOGIC MED CTR MED CTR RH (D) [facility] CUTTER HELPER ST [facility] CUTTER HELPER ST CULTURE [address] BCT 4 ROGER DURAN ISOL&PRSM MED CTR MED CTR PTV ID [facility] C[facility]TER HELPER ST GLASS CUTTER HELPER ST ISOLATE EA URINE CULTURE [address] BACTERIAL 4 ROGER ROGER MED CTR MED CTR QUANTTATI [facility] C[facility]TER HELPER ST [facility] CUTTER HELPER ST VE COLONY COUNT URINE COLLECTIO [address] N VENOUS 4 ROGER ROGER BLOOD MED CTR MED CTR VENIPUNCT [facility] [place] [address] HEPATITIS 4 ROGERENRIQUETA DAYTH B MED CTR MED CTR SURFACE [facility]PER ST ANTIGEN BLOOD [address] COUNT 4 ROGERENRIQUETA DURAN COMPLETE MED CTR MED CTR AUTO&AUTO [facility] C[facility]TER HELPER ST GLASS CUTTER HELPER ST DIFRNTL WBC ANTIBODY [address] RUBELLA 4 ROGER ROGER MED CTR MED CTR [facility] C[facility]TER HELPER [facility] C[facility]TER HELPER ST ANTIBODY 67616 [facility] TREPONEMA 4 ROGERASHLEY DURAN PALLIDUM MED CTR MED CTR [facility] C[facility]TER HELPER [facility] C[facility] ST URINE [address] ST ESTEBAN EDNA 4 ROGER TEST VISUAL PHYSICIAN COLOR S CMPRSN METHS US PREG 62541 RADIOLOGY KLEIMEYER UTERUS 3 FIORDALIZA REAL TIME ASSOCIATE W/IMAGE S OF [facility] DCMTN TRANSVAG URINE 99122 [place] PEN[facility] 3 N CO N CO TEST [facility] COLOR CMPRSN METHS URINE 09793 [facility] 1 ROGER DURAN TEST FT FT VISUAL ANA ANA COLOR CMPRSN METHS LAPAROSCO 68212 ST PY SURG 1 ROGER DURAN CHOLECYST FT FT ECTOMY ANA PEREZ INJECTION J0690 ST ST 1 ROGER DURAN CEFAZOLIN FT FT SODIUM ANA ANA [id number] 1 ROGER DURAN MIDAZOLAM FT FT HCL PER ANA NAA [address] 1 ROGER DURAN HYDROMORP FT FT TITI UP ANA PEREZ TO [address] INTRAPERI 1 ROGER DURAN TONEAL FT [...] ANA ANA PER 1 MG LEVEL III 13424 OSTERHAGE OSTERHAGE SURG 1 ANJUM ANJUM PATHOLOGY GROSS&VENKATESH ROSCOPIC EXAM ACUTE [address] HEPATITIS 1 ROGER ROGER PANEL MED CTR MED CTR GLASS C[facility] [place] [address] AMYLASE 1 ROGER ROGER MED CTR MED CTR [facility] [address] [place] [address] FOLIC 1 ROGER ROGER ACID MED CTR MED CTR SERUM [facility] C[facility]PER ST BLOOD [address] COUNT 1 ROGER ROGER COMPLETE MED CTR MED CTR AUTO&AUTO [facility] C[facility] GLASS CUTTER HELPER ST DIFRNTL WBC CYANOCOBA [address] RADHA 1 ROGER ROGER VITAMIN MED CTR MED CTR B-[address] [place] [address] LIPASE 1 ROGER ROGER MED CTR MED CTR [facility] HEPATIC [address] FUNCTION 1 ROGER ROGER PANEL MED CTR MED CTR [place] [address] RADIOLOGY RADIOLOGY ABDOMINAL 1 REAL ASSOCIATE ASSOCIATE TIME S OF NOTH S OF NOTH W/IMAGE LIMITED HEPATIC [address] FUNCTION 1 ROGER ROGER PANEL MED CTR MED CTR GL[facility] C[facility]TER [facility]ASS CUT[facility] HELPER ST BLOOD [address] COUNT 1 ROGER ROGER COMPLETE MED CTR MED CTR AUTO&AUTO [facility] ST GLASS CUTTER HELPER ST DIFRNTL WBC BASIC [address] METABOLIC 1 ROGER ROGER PANEL MED CTR MED CTR CALCIUM [facility] C[facility] GLASS CUTTER HELPER ST TOTAL POSTPARTU 46161 [facility] WOESTE M CARE 1 WOMEN'S MALCOM ONLY HEALTH SEPARATE ASS PROCEDURE VAGINAL 83732 [facility] WOESTE DELIVERY 1 WOMEN'S MALCOM ONLY HEALTH ASS [address] NONSTRESS 1 ROGER ROGER [place] [address] 1 ROGER ROGER UTERUS LIMITED MEDICALCE MEDICALCE 1/> NTER NTER FETUSES OBSERVATI 71408 [facility] 1 W[facility]EN'S [facility] ASS CARE 50 MINUTES URNLS DIP [address]4448 [place] [address] WOMEN'S GAR STICK/TAB HEALTH LET RGNT ASS NON-AUTO W/O MICRSCP 03753 [facility] NONSTRESS 1 ROGERASHLEY DURAN TEST MEDICALCE MEDICALCE NTER NTER DUP-SCAN 41946 [facility]. XTR VEINS 1 ROGER DAYTH NAOMIE NAOMIE UNILATERA L/LIMITED STUDY URNLS DIP 75630 [place] [address] WOMEN'S BRAD STICK/TAB HEALTH LET RGNT ASS NON-AUTO W/O MICRSCP URNLS DIP 53157 [place] [address] WOMEN'S GAR STICK/TAB HEALTH LET RGNT ASS NON-AUTO W/O MICRSCP 14217 [facility] NONSTRESS 1 ROGER DAYTH TEST MEDICALCE MEDICALCE NTER NTER URNLS DIP 34056 [place] [address] WOMEN'S BRAD STICK/TAB HEALTH LET RGNT ASS NON-AUTO W/O MICRSCP 41778 [facility] NONSTRESS 1 ROGER DAYTH TEST MEDICALCE MEDICALCE NTER NTER URNLS DIP 40787 [facility] 1 ROGER ROGER STICK/TAB LET MEDICALCE MEDICALCE REAGENT NTER NTER AUTO MICROSCOP Y URNLS DIP 56266 [place] [address] WOMEN'S GAR STICK/TAB HEALTH LET RGNT ASS NON-AUTO W/O MICRSCP IADNA 98348 [facility] STREPTOCO 1 ROGER ROGER CCUS GROUP B MEDICALCE MEDICALCE AMPLIFIED NTER NTER PROBE TQ THERAPEUT 60748 [facility] IC 1 ROGER ROGER PROPHYLAC TIC/DX MEDICALCE MEDICALCE INJECTION NTER NTER SUBQ/IM 40290 [facility] NONSTRESS 1 ROGER ROGER TEST MEDICALCE MEDICALCE NTER NTER URNLS DIP [address] 1 ROGER ROGER STICK/TAB LET MEDICALCE MEDICALCE REAGENT NTER NTER AUTO MICROSCOP Y URNLS DIP 19809 [place] [address] WOMEN'S GAR STICK/TAB HEALTH LET RGNT ASS NON-AUTO W/O MICRSCP URNLS DIP 90103 [place] [address] WOMEN'S GAR STICK/TAB HEALTH LET RGNT ASS NON-AUTO W/O MICRSCP URNLS DIP 09146 [place] [address] WOMEN'S GAR STICK/TAB HEALTH LET RGNT ASS NON-AUTO W/O MICRSCP URNLS DIP 96448 [place] [address] WOMENS GAR STICK/TAB HEALTH LET RGNT ASS NON-AUTO W/O [facility]CRSCP HOSPITAL [address] DAY [facility] MANAGEMEN ASS T 30 MIN/< [place] [address] [facility] ABDOMINAL 1 ROGER DURAN REAL TIME MEDICALCE MEDICALCE W/IMAGE NTER NTER LIMITED INITIAL 21211 [facility] OBSERVATI 1 ROGER DURAN ON CARE/DAY MEDICALCE MEDICALCE 50 NTER NTER MINUTES URNLS DIP 94349 ST 1 ROGER DURAN STICK/TAB LET MEDICALCE MEDICALCE REAGENT NTER NTER [place] PREG 17668 [facility] UTERUS 1 ROGER DURAN W/DETAIL MEDICALCE MEDICALCE RAJINDER 1ST NTER NTER GESTATION INITIAL 05121 PHYSICIAN OBSERVATI 1 ROGER POE ON LABORATOR CARE/DAY MEDICALCE Y 50 NTER MINUTES THER 72180 [facility] PROPH/DX 1 ROGER DURAN NJX EA SEQL IV MEDICALCE MEDICALCE PUSH NTER NTER SBST/DRUG FAC SBSQ [address] CARE/DAY HEALTH 25 ASS MINUTES HEPATIC 54106 [facility] FUNCTION 1 ROGER DURAN PANEL MEDICALCE MEDICALCE NTER NTER BLOOD 77371 [facility] COUNT 1 ROGER DURAN COMPLETE AUTOMATED [place] [address] AMYLASE 1 ROGER ROGER MEDICALCE MEDICALCE NTER NTER [place] [address] PELVIS 1 ROGER DURAN W/O CONTRAST MEDICALCE MEDICALCE MATERIAL NTER NTER THER [address] PROPH/DX 1 ROGER ROGER NJX IV PUSH MEDICALCE MEDICALCE SINGLE/1S NTER NTER T SBST/DRUG THER [address] PROPH/DX 1 ROGER ROGER NJX IV NAOMIE NAOMIE PUSH SINGLE/1S T SBST/DRUG BLOOD [address] COUNT 1 [facility] COM[facility] NAOMIE NAOMIE AUTO&[place] [address] [facility]. INFUSION 1 ROGER ROGER HYDRATION NAOMIE NAOMIE EACH ADDITIONA L HOUR INITIAL [address]/DAY HEALTH 70 ASS MINUTES URNLS DIP 46623 [facility] ST. 1 ROGER ROGER STICK/TAB NAOMIE NAOMIE LET RGNT NON-AUTO W/O MICRSCP COLLECTIO 91681 [facility] ST. N VENOUS 1 PARKMAN ROGER BLOOD NAOMIE NAOMIE VENIPUNCT URE COLLECTIO 73989 [facility] ST. N VENOUS 1 [facility] NAOMIE NAOMIE VENIPUNCT URE BLOOD 30183 [facility] ST. COUNT 1 ROGER DAYTH HEMOGLOBI NAOMIE NAOMIE N GLUCOSE 08658 [facility]. POST 1 ROGER ROGER GLUCOSE NAOMIE NAOMIE DOSE URNLS DIP 16231 [facility] 1 WOMEN'S KIR STICK/TAB HEALTH LET RGNT ASS NON-AUTO W/O MICRSCP RADEX 90652 RADI[facility] HURST MARTA FINGR 1 MINIMUM 2 ASSOCIATE VIEWS S PSC URNLS DIP 86460 [facility] 1 WOMEN'S BRAD STICK/TAB HEALTH LET RGNT ASS NON-AUTO W/O MICRSCP US PREG 86435 [facility] WO[facility] UTERUS 1 WOMEN'S MALCOM W/DETAIL HEALTH ASS RAJINDER 1ST GESTATION URNLS DIP 11722 [facility] WO[facility]E 1 WOMEN'S MALCOM STICK/TAB HEALTH LET RGNT ASS NON-AUTO W/O MICRSCP URNLS DIP 31181 [facility] 1 WOMEN'S BRAD STICK/TAB HEALTH LET RGNT ASS NON-AUTO W/O MICRSCP URINE 88711 [facility] 1 WOMEN'S WOMEN'S TEST HEALTH HEALTH VISUAL ASS ASS COLOR CMPRSN METHS URINE 01586 [facility] PENDELETO 1 N [place] [facility] [place] [facility] C[facility] CENTER COLOR CMPRSN METHS Encounters Encounter Start End Date Code Location Performer Type Date OFFICE 40253 [facility] OUTPATIEN 7 7 PHYSICIAN T VISIT S GROUP 15 MINUTES OFFICE 22565 [facility] IVANL OUTPATIEN 7 7 PHYSICIAN T VISIT S GROUP 15 MINUTES PERIODIC 34739 [facility] 7 PHYSICIAN E MED EST S GROUP PATIENT 18-[address] [place], OUTPATIEN 7 7 ROGER MAJANO, DO T VISIT 10 PHYSICIAN MINUTES S OFFICE 23[address] [facility] [place] II OUTPATIEN 7 7 ROGER T VISIT 25 PHYSICIAN MINUTES S OFFICE [address] [facility] NAN OUTPATIEN 6 6 ROGER T VISIT 15 PHYSICIAN MINUTES S EMERGENCY 83926 [facility] HIGH/URGE S NT SEVERITY [facility] - 6 6 [facility] OUT[facility]EN [facility] - 6 6 [facility] OUTPATIEN [facility] EMERGENCY 92813 [facility] DEPT 6 6 [facility] VISIT INC HIGH SEVERITY& THREAT FUNCJ EMERGENCY 51997 ZHANE CALVO 6 6 PHYSICIAN U JANICE DEPARTMEN S, PLLC T VISIT HIGH/URGE NT SEVERITY OFFICE 29002 [facility] OUTPATIEN 6 6 PHYSICIAN EZE T VISIT S GROUP 25 MINUTES [facility] - 6 6 [facility]EN INC T [facility] - 6 6 [facility]PATI[facility] INC T OFFICE 30106 [facility] OUTPATIEN 6 6 PHYSICIAN EZE T VISIT S GROUP 25 MINUTES OFFICE 74840 JACKIE MCDONALD OUTPATIEN 6 6 TAMARA SINGLETON EZE T VISIT 15 MINUTES OFFICE 67514 JACKIE MCDONALD OUTPATIEN 6 6 TAMARA SINGLETON EZE T VISIT 25 MINUTES INITIAL 88598 JACKIE MCDONALD PREVENTIV 6 6 TAMARA SINGLETON EZE E MEDICINE NEW PT AGE 18-39YRS OFFICE [address] ST JESSICA OUTPATIEN 5 5 ROGER MAR T VISIT 15 PHYSICIAN MINUTES S OFFICE [address]281 ST JESSICA OUTPATIEN 5 5 ROGER MAR T VISIT 15 PHYSICIAN MINUTES [facility] ST - 5 5 ROGER OUTPATIEN MED CTR T GL[facility] CUTTER HELPER [facility] ST - 5 5 ROGER OUTPATIEN MED CTR T [facility] HELPER ST OFFICE [address]04 ST ESTEBAN EDNA OUTPATIEN 5 5 ROGER T VISIT 15 PHYSICIAN MINUTES S OFFICE 60777 ST JESSICA OUTPATIEN 5 5 ROGER MAR T VISIT 15 PHYSICIAN [address] [facility] - 5 5 ROGER OUTPATIEN MED CTR T [facility] ST OFFICE 05487 ST OUTPATIEN 5 5 ROGER T VISIT MED CTR [address] [facility] ST - 5 5 ROGER OUTPATIEN MED CTR T [facility] [facility] OFFICE [address]2524 ST ESTEBAN EDNA OUTPATIEN 5 5 ROGER T VISIT 15 PHYSICIAN MINUTES S OFFICE 94610 ST JESSICA OUTPATIEN 5 5 ROGER MAR T VISIT 15 PHYSICIAN [address] [facility] - 5 5 ROGER OUTPATIEN NAOMIE T OFFICE 22896 ST ESTEBAN EDNA OUTPATIEN 5 5 ROGER T VISIT 15 PHYSICIAN MINUTES S OFFICE 93256 JESSICA JESSICA OUTPATIEN 5 5 MAR MAR T VISIT [address] KENISHA OUTPATIEN 5 5 ROGER FIORDALIZA T VISIT 15 PHYSICIAN MINUTES [facility] ST - 5 5 ROGER OUTPATIEN MED CTR T [facility] CUTTER HELPER OFFICE 88209 [facility] 5 5 ROGER KOTA T VISIT 15 PHYSICIAN MINUTES [facility] ST - 5 5 ROGER OUTPATIEN MED CTR T [facility] ST EMERGENCY 13595 [facility] ANYA 5 5 EMERGENCY MALCOM DEPARTMEN T VISIT PHYSICIAN HIGH/URGE S [facility] ST - 5 5 ROGER OUTPATIEN MED CTR T [facility] HELPER ST OFFICE 02362 ST [facility] NAN OUTPATIEN 5 5 ROGER T VISIT 15 PHYSICIAN MINUTES S OFFICE 82140 ST KENISHA OUTPATIEN 4 4 ROGER FIORDALIZA T VISIT 15 PHYSICIAN MINUTES S OFFICE 95537 [facility] OUTPATIEN 4 4 LTH LTH T VISIT ORTHOPAED ORTHOPAED 15 IC CTR IC CTR [facility] ST. - 4 4 ROGER OUTPATIEN [facility] ST. - 4 4 ROGER OUTPATIEN [facility] OFFICE 73511 COMMON[facility] COMMONWE[facility] OUTPATIEN 4 4 LTH LT T VISIT ORTHOPAED ORTHOPAED 15 IC CTR IC CTR [facility] ST - 4 4 ROGER OUTPATIEN MED CTR T [facility] ST OFFICE 06879 ST [facility] NAN OUTPATIEN 4 4 ROGER T VISIT 15 PHYSICIAN MINUTES S OFFICE 80682 SEDA SEDA OUTPATIEN 4 4 ALP [facility] 60 MINUTES [facility] ST - 4 4 ROGER INPATIENT MED CTR [facility] ST OFFICE 04225 ST JESSICA OUTPATIEN 4 4 ROGER MAR T VISIT 15 PHYSICIAN MINUTES [facility] ST - 4 4 ROGER OUTPATIEN MED CTR T [facility] ST OFFICE 51846 ST JESSICA OUTPATIEN 4 4 ROGER MAR T VISIT 15 PHYSICIAN MINUTES [facility] ST - 4 4 ROGER OUTPATIEN MED CTR T [facility] ST OFFICE 55637 ST JESSICA OUTPATIEN 4 4 ROGER MAR T VISIT 15 PHYSICIAN MINUTES S OFFICE 08698 ST JESSICA OUTPATIEN 4 4 ROGER MAR T VISIT 15 PHYSICIAN [address] [facility] - 4 4 ROGER OUTPATIEN MED CTR T [facility] ST OFFICE 82873 ST JESSICA OUTPATIEN 4 4 ROGER MAR T VISIT 15 PHYSICIAN MINUTES S OFFICE 01068 ST JESSICA OUTPATIEN 4 4 ROGER MAR T VISIT 15 PHYSICIAN MINUTES S OFFICE 55719 ST JESSICA OUTPATIEN 4 4 ROGER MAR T VISIT 15 PHYSICIAN MINUTES S [facility] ST - 4 4 ROGER OUTPATIEN MED CTR T [facility] ST OFFICE 00001 ST OUTPATIEN 4 4 ROGER T VISIT MED CTR [address] MINUTES OFFICE 07933 ST MAURA FIORDALIZA OUTPATIEN 4 4 ROGER T VISIT 15 PHYSICIAN MINUTES S OFFICE 38186 ST JESSICA OUTPATIEN 4 4 ROGER MAR T VISIT 15 PHYSICIAN MINUTES S OFFICE 33334 ST ESTEBAN EDNA OUTPATIEN 4 4 ROGER T VISIT [address] [facility] - 4 4 ROGER OUTPATIEN [facility] ST - 4 4 ROGER OUTPATIEN MED CTR T [facility] HELPER OFFICE 83799 ST ESTEBAN EDNA OUTPATIEN 4 4 ROGER T VISIT 15 PHYSICIAN MINUTES [facility] ST - 4 4 ROGER OUTPATIEN MED CTR T [facility] HELPER OFFICE 42247 [facility] OUTPATIEN 4 4 ROGER LIS T VISIT [address] PHYSIC[address] [facility] - 4 4 ROGER OUTPATIEN MED CTR T [facility] HELPER OFFICE 24170 [facility] OUTPATIEN 4 4 ROGER LIS T VISIT [address] PHYSIC[address] [facility] - 4 4 ROGER OUTPATIEN MED CTR T [facility] - 3 3 ROGER OUTPATIEN MED CTR T [facility] EMERGENCY 96740 ST 3 3 ROGER DEPARTMEN MED CTR T VISIT [facility] ST HIGH/URGE NT SEVERITY EMERGENCY 01586 ST RICHARD DEPT 3 3 ROGER N GLADIS VISIT MED CTR HIGH SEVERITY& THREAT FUNCJ OFFICE 70873 PEN[facility] PENDELETO OUTPATIEN 3 3 N CO N CO T VISIT HEALTH HEALTH 15 CENTER [facility] ST - 1 1 ROGER OUTPATIEN FT T ANA OFFICE 47564 JULISSA COSTA OUTPATIEN 1 1 NOR NOR T VISIT 15 MINUTES OFFICE 55758 KENISHA DE OUTPATIEN 1 1 FIORDALIZA FIORDALIZA T VISIT [address] - 1 1 ROGER OUTPATIEN MED CTR T [facility] ST[facility] - 1 1 ROGER OUTPATIEN [facility] ST - 1 1 ROGER OUTPATIEN MED CTR T [facility] HELPER EMERGENCY 78318 RICHARDSO RICHARDSO 1 1 N GLADIS N GLADIS DEPARTMEN T VISIT HIGH/URGE NT SEVERITY OFFICE 70588 [facility] 1 1 ROGER T VISIT 5 [facility] ROGER OUTPATIEN T MEDICALCE [facility] ST - 1 1 ROGER INPATIENT MEDICALCE NTER OFFICE 85659 [facility] OUTPATIEN 1 1 WOMEN'S KIR T VISIT HEALTH [address] - 1 1 ROGER OUTPATIEN T MEDICALCE NTER OFFICE 12277 OUTPATIEN 1 1 ROGER T VISIT 40 MEDICALCE MINUTES NTER OFFICE 81779 [facility] OUTPATIEN 1 1 WOMEN'S GAR T VISIT HEALTH [address] - 1 1 ROGER OUTPATIEN T MEDICALCE NTER OFFICE 42989 OUTPATIEN 1 1 ROGER T VISIT 40 MEDICALCE MINUTES NT [facility] - 1 1 ROGER OUTPATIEN NAOMIE T OFFICE 46918 [facility] 1 1 WOMEN'S BRAD T VISIT HEALTH [address]ES [address] [facility] 1 1 WOMEN'S GAR T VISIT HEALTH [address] - 1 1 ROGER OUTPATIEN T MEDICALCE NTER OFFICE 76896 [facility] 1 1 ROGER T VISIT 40 MEDICALCE MINUTES NTER OFFICE 18760 [facility] 1 1 WOMEN'S BRAD T VISIT HEALTH 15 ASS MINUTES OFFICE 59575 [facility] 1 1 ROGER T VISIT 40 MEDICALCE MINUTES [facility] ST - 1 1 ROGER OUTPATIEN T MEDICALCE [facility] ST - 1 1 ROGER OUTPATIEN T MEDICALCE NT OFFICE 19074 [facility] 1 1 WOMEN'S GAR T VISIT HEALTH [address] - 1 1 ROGER OUTPATIEN T MEDICALCE NT OFFICE 11398 [facility] 1 1 ROGER T VISIT 40 MEDICALCE MINUTES NTER OFFICE 20168 [facility] 1 1 WOMEN'S GAR T VISIT HEALTH 15 ASS MINUTES OFFICE [address]11 [facility] 1 1 WOMEN'S GAR T VISIT HEALTH 15 ASS MINUTES OFFICE [address]018 [facility] 1 1 WOMEN'S GAR T VISIT HEALTH 15 ASS MINUTES OFFICE 73138 [facility] OUTPATIEN 1 1 WOMEN'S GAR T VISIT HEALTH [address] - 1 1 ROGER OUTPATIEN T [facility] ST. - 1 1 ROGER GARCÍAPATIEN NAOMIE T EMERGENCY 29432 [facility] 1 1 ROGER JANICE DEPARTMEN MED CTR T VISIT HIGH/URGE NT SEVERITY [facility]PITAL ST[facility] - 1 1 ROGER GARCÍAPATIEN NAOMIE T OFFICE 86231 [facility] 1 1 WOMEN'S KIR T VISIT HEALTH 15 ASS MINUTES OFFICE 66755 [facility] OUTPATIEN 1 1 ROGER BULL T VISIT 25 PHYSICIAN MINUTES [facility] ST. - 1 1 ROGER GARCÍAPATIEN NAOMIE T EMERGENCY 44768 [facility]COM 1 1 ROGER DEPARTMEN MED CTR T VISIT MODERATE SEVERITY OFFICE 73683 [facility] OUT[facility] 1 1 WOMEN'S BRAD T VISIT HEALTH 15 ASS MINUTES OFFICE 86971 [facility] OUTPATIEN 1 1 WOMEN'S MALCOM T VISIT HEALTH 15 ASS MINUTES OFFICE 57838 [facility] OUTPATIEN 1 1 WOMEN'S BRAD T VISIT HEALTH 15 ASS MINUTES OFFICE 73498 [facility] OUTPATI[facility] 1 1 WOMEN'S GAR T NEW 45 HEALTH MINUTES ASS EMERGENCY 52[address] [facility]COM 1 1 ROGER DEPARTMEN MED CTR T VISIT HIGH/URGE NT SEVERITY OFFICE 21887 [facility] NAN OUTPATIEN 1 1 ROGER T VISIT 15 PHYSICIAN MINUTES S OFFICE 49907 [facility] PENDELE[facility] OUTPATIEN 1 1 N CO N CO T NEW 20 HEALTH HEALTH MINUTES CENTER [facility]
--- OUTSIDE RECORDS SUMMARY | 2016-10-31 06:27 | External Medical Summary Rpt ---
Author Author , Organization [employer] Address Unknown Phone Unavailable Care Team Providers Care Screed Operator Name Role Phone BEAVEN BRAD, BEAVEN Unavailable Unavailable BRAD JUÁREZ KIR, JUÁREZ Unavailable Unavailable KIR [facility] Unavailable Unavailable [facility], [facility] FIELD JANICE, FIELD JANICE Unavailable Unavailable [facility] Unavailable Unavailable SERVICE, [facility] Unavailable Unavailable SERVICE, [facility] JACQUES JANICE, JACQUES Unavailable Unavailable JANICE [facility] Unavailable Unavailable [facility], [facility] Unavailable Unavailable PHYSICIANS, [facility] COPPAGE KRI, COPPAGE Unavailable Unavailable KRI DESCH JANICE, DESCH JANICE Unavailable Unavailable KENISHA KENISHA MANCERA Unavailable Unavailable FIORDALIZA JESSICA SHAHID, JESSICA Unavailable Unavailable SHAHDI JESSICA MAR, JESSICA Unavailable Unavailable MAR DOWNTON LIS, DOWNTON Unavailable Unavailable LIS ANYA MALCOM, ANYA Unavailable Unavailable MALCOM JULISSA NOR, JULISSA Unavailable Unavailable NOR CAMILLA SCOTT, CAMILLA SCOTT Unavailable Unavailable GANSHIRKingsley ESCUDERO, Unavailable Unavailable GANSHIRT KOTA JACKIE MCDONALD MD, Unavailable Unavailable JACKIE JACKSON, Unavailable Unavailable REBECCA JACKSON, Unavailable Unavailable REBECCA JUNIOR LIL, VERNON LIL Unavailable Unavailable HARPEL, HARPEL Unavailable Unavailable HARPEL EZE, HARPEL Unavailable Unavailable E[facility] Unavailable Unavailable [facility], [facility], Unavailable Unavailable [facility] HURST MARTA, HURST MARTA Unavailable Unavailable REA GAR, REA Unavailable Unavailable BERKLEY MANCERA, Unavailable Unavailable ROWDY ORELLANA EDNA, ESTEBAN EDNA Unavailable Unavailable ROM PARRA Unavailable Unavailable MELISSA RAMOS Unavailable Unavailable ML OSTERHAGE ANJUM, Unavailable Unavailable OSTERHAGE ANJUM [facility] Unavailable Un[facility] Un[facility]available [facility], [facility] G[facility] II, [facility] Unavailable Unavailable [facility] Unavailable Unavailable CENTER, [facility], , Unavailable Unavailable [facility], [facility] Unavailable Unavailable LABORATORY, [facility] Unavailable Unavailable OF NOT, [facility]available [facility]available OF [facility], [facility] Unavailable Unavailable [facility], [facility] [...] [facility]available Unavailable [facility] [address] [facility], [facility] Un[facility] Unavailable Unavailable [facility]ICIANS, [facility] Unavailable Unavailable [facility]LA, [facility], Unavailable Unavailable [facility] MAURA MANCERA, MAURA MANCERA Unavailable Unavailable [facility] # Unavailable Unavailable 4, [facility] # 4 [facility] Unavailable Unavailable [facility], [facility] [employer], Unavailable Unavailable [employer] [facility] Unavailable Unavailable ME, [facility] TONY DEW, TONY DEW Unavailable Unavailable WOESTE MALCOM, WOESTE Unavailable Unavailable MALCOM SAMANTA MALCOM, SAAMNTA MALCOM Unavailable Unavailable Purpose Continuity of Care Document - 08-11-2010 through 2016 Problems Code Diagnosis DOS Provider Status N393 STRESS 10-06-2016 [facility] INCONTINENC PHYSICIANS E FEMALE GROUP MALE N819 FEMALE 10-06-2016 [facility] GENITAL PHYSICIANS PROLAPSE GROUP UNSPECIFIED N3644 MUSCULAR 09-05-2016 [facility] DISORDERS PHYSICIANS OF URETHRA GROUP [id number] ENCOUNTER 08-22-2016 [facility] LOCATION WORKER EXAM PHYSICIANS GENERAL RTN GROUP W/O ABNORMAL FIND [id number] FOREIGN 08-20-2016 ST BODY IN [facility] LEFT EAR PHYSICIANS INITIAL ENCOUNTER B9789 OTH VIRAL 07-30-2016 ST AGENT CAUSE [facility] DISEASES PHYSICIANS CLASSIFIED ELSW J069 ACUTE UPPER 07-30-2016 [facility] RESPIRATORY PHYSICIANS INFECTION UNSPECIFIED T148 OTHER 11-27-2015 ST INJURY OF [facility] UNSPECIFIED PHYSICIANS BODY REGION [id number] OTHER EARLY 11-27-2015 [facility] COMPLICATIO PHYSICIANS NS TRAUMA INITIAL ENCNTR Z4802 ENCOUNTER 11-27-2015 ST FOR REMOVAL [facility] OF SUTURES PHYSICIANS M7989 OTHER 11-20-2015 [facility] SPECIFIED [facility] SOFT TISSUE DISORDERS [id number] LAC W/O FB 11-20-2015 [facility] UNS FINGER EMERGENCY W/O DAMAGE PHYSICIANS NAIL INITIAL [id number] PUNCTURE 11-20-2015 [facility] WOUND W/O EMERGENCY FB UNS HAND PHYSICIANS INITIAL ENC [id number] OPEN BITE 11-20-2015 GULUZIAN OF RIGHT RENETTA WRIST INITIAL ENCOUNTER U393FIC BITTEN BY 11-20-2015 [facility] DOG INITIAL EMERGENCY ENCOUNTER PHYSICIANS N8320 UNSPECIFIED 10-16-2015 [facility] CYSTS INC Z302 ENCOUNTER 10-16-2015 [facility] [place] H73452 ENCOUNTER 10-12-2015 [facility] PREPROCEDUR INC AL LABORATORY EXAM N898 OTHER 10-05-2015 [facility] SPECIFIED [facility]ICIANS, NONINFLAMMA PLLC TORY DISORDERS VAGINA N939 ABNORMAL 10-05-2015 [facility] VAGINAL SERVICE BLEEDING UNSPECIFIED O021 MISSED 10-05-2015 [facility] THE BLUE O034 INCOMPLETE 10-05-2015 [facility] SPONTANEOUS [facility] W/O COMPLICATIO N O2691 10-05-2015 [facility]ATED [facility], CONDITIONS PLLC UNS 1ST TRIMESTER R109 UNSPECIFIED 10-05-2015 [facility] PAIN SERVICE O200 THREATENED 10-02-2015 [facility] PHYSICIANS GROUP N925 OTHER 09-10-2015 JACKIE MCDONALD MD IRREGULAR MENSTRUATIO N N760 ACUTE 09-07-2015 JACKIE Hubbard VAGINITIS TAMARA SINGLETON Z3009 ENCOUNTER 09-07-2015 JACKIE Hubbard [facility] GENERAL TAMARA SINGLETON TELEHEALTH CASE MANAGER&ADV ICE CONTRACEPT O80 ENCOUNTER 04-24-2015 ST FOR [facility] FULL-TERM PHYSICIANS UNCOMPLICAT ED DELIVERY Z370 SINGLE LIVE 04-24-2015 ST [facility] PHYSICIANS Z3A40 40 WEEKS 04-24-2015 ST GESTATION [facility] OF PHYSICIANS [id number] DECREASED 04-21-2015 ST [facility] MOVEMENTS PHYSICIANS THIRD TRI FETUS 1 Z3483 ENC 04-21-2015 ST SUPERVISION [facility] OTH NORMAL PHYSICIANS 3 TRIMESTER Z3A39 39 WEEKS 04-21-2015 ST GESTATION [facility] OF PHYSICIANS O622 OTHER 04-13-2015 ST UTERINE [facility] INERTIA PHYSICIANS O628 OTHER 04-13-2015 ST ABNORMALITI [facility] ES OF MED CTR [facility] FORCES OF ST LABOR Z0371 ENCOUNTER 04-13-2015 ST SUSP PROB [facility] AMNIOTIC PHYSICIANS CAV MEMB RULED OUT Z36 ENCOUNTER 04-13-2015 ST FOR [facility] MED [facility] SCREENING ST OF MOTHER Z3A38 38 WEEKS 04-13-2015 ST GESTATION [facility] OF PHYSICIANS V221 SUPERVISION 03-17-2015 ST OF OTHER [facility] NORMAL PHYSICIANS 29874 THREATENED 03-12-2015 ST PREMATURE [facility] LABOR MED CTR [facility] ANTEPARTUM ST V2889 OTHER 03-12-2015 ST SPECIFIED [facility] [address] S[address] 63816 OBESITY, 03-06-2015 ST UNSPECIFIED [facility] [address] [address] OTHER 03-06-2015 [facility] SPECIFED [facility] COMPLICATIO N ANTEPARTUM 56217 TOB USE D/O 03-06-2015 ST COMP PG [facility] /PP MED CTR [facility] ANTEPARTM ST COND/COMP 30532 OBES COMP 03-06-2015 ST PG [facility] /THE MED CTR [facility] PP ST ANTEPARTUM COND/COMP V8533 BODY MASS 03-06-2015 ST INDEX [facility] 33.0-33.9 MED CTR [facility] ADULT ST 4610 ACUTE 12-17-2014 ST MAXILLARY [facility] SINUSITIS PHYSICIANS V222 12-17-2014 STATE, [facility] INCIDENTAL PHYSICIANS 79573 UNS 12-03-2014 [facility] ABNORM MGMT W. LLC MOTH ANTPRTM COND/COMP V2389 SUPERVISION 09-29-2014 ST OF OTHER [facility] HIGH-RISK MED CTR [address] [address] 5589 OTH&UNSPEC 09-17-2014 [facility] NONINFECTIO EMERGENCY US PHYSICIANS GASTROENTER ITIS&COLITI S V7242 09-11-2014 EXAMINATION [facility] OR TEST PHYSICIANS POSITIVE RESULT 3829 UNSPECIFIED 07-16-2014 ST OTITIS [facility] MEDIA PHYSICIANS 4619 ACUTE 07-16-2014 ST SINUSITIS, [facility] UNSPECIFIED PHYSICIANS 4871 INFLUENZA 06-04-2014 ST WITH OTHER [facility] RESPIRATORY PHYSICIANS MANIFESTATI ONS 17630 FEVER 06-04-2014 ST UNSPECIFIED [facility] PHYSICIANS 55060 PAIN IN 05-27-2014 [facility] THIGH 7245 UNSPECIFIED 05-19-2014 ST. BACKACHE [facility] NAOMIE V571 OTHER 05-19-2014 ST. PHYSICAL [facility] THERAPY NAOMIE 65627 SCOLIOSIS , 05-06-2014 [facility] 6260 ABSENCE OF 03-31-2014 ST MENSTRUATIO [facility] N PHYSICIANS V0481 NEED 03-31-2014 ST PROPHYLACTI [facility] C PHYSICIANS VACCINATION &INOCULATIO N FLU V2549 SURVEILLANC 01-31-2014 [facility] ALP E OTH PREV PRSC CONTRACEPT METHOD 26475 ASTHMA, 01-05-2014 ST UNSPECIFIED [facility] , MED CTR [facility] UNSPECIFIED ST STATUS 90555 OTH CURRENT 01-05-2014 ST MATERNAL [facility] CCE MED CTR [facility] W/DELIVERY ST [address] TOBACCO USE 01-05-2014 ST D/O COMP [facility] PG MED CTR [facility] CHILDBIRTH/ ST PP DELIVERED 650 NORMAL 01-05-2014 ST DELIVERY [facility] PHYSICIANS 61179 OTHER 01-05-2014 ST SPECIFIED [facility] TRAUMA MED CTR [facility] PERINEUM&VU ST LVA W/DELIVERY V270 OUTCOME OF 01-05-2014 ST DELIVERY [facility] SINGLE PHYSICIANS LIVEBORN 76353 OTHER 12-29-2013 ST THREATENED [facility] LABOR, MED CTR [facility] ANTEPARTUM ST V289 UNSPECIFIED 12-29-2013 ST [facility] SCREENING MED CTR [address] 56255 DECR 11-02-2013 ST MOVMNTS [facility] MGMT MOTH MED CTR [facility] ANTPRTM ST COND/COMP V036 NEED PROPH 10-29-2013 ST VACC&INOCUL [facility] AT AGAINST PHYSICIANS PERTUSS ALONE V061 NEED PROPH 10-29-2013 ST VAC W/COMB [facility] DIPHTH-TETA PHYSICIANS NUS-PERTUSS VAC V8531 BODY MASS 09-11-2013 ST INDEX [facility] 31.0-31.9 MED [facility] [address] [facility] [facility] 17984 OTH SPEC 08-12-2013 ST MALPSTN/MAL [facility] PRESENTATIO MED CTR [facility] N FETUS ST ANTPRTM 14694 ABDOMINAL 06-01-2013 [facility] UNSPECIFIED OF NOT SITE 10853 OTH CURRENT 05-31-2013 ST MAT CONDS [facility] CLASSIFIABL MED CTR [facility] E ELSW ST ANTPRTM 55199 ABDOMINAL 05-31-2013 ST PAIN RIGHT [facility] LOWER MED CTR QUADRANT 43174 CALCU 05-26-2011 ST GALLBLADD [facility] W/O MENTION PHYSICIANS CHOLECYST/O BST V5869 LONG-TERM 05-26-2011 ST (CURRENT) [facility] USE OF FT ANA OTHER MEDICATIONS 35976 OTHER COMPL 05-13-2011 ST. OF [facility] PUERPERIUM NAOMIE PP COND/COMPL 99204 ABDOMINAL 05-13-2011 ST. PAIN RIGHT [facility] UPPER NAOMIE QUADRANT 94323 LEUKOCYTOSI 05-10-2011 ST S [facility] UNSPECIFIED MED CTR [facility] [address] [facility] 7906 OTHER 05-10-2011 ST ABNORMAL [facility] BLOOD MED CTR [facility] CHEMISTRY ST V242 ROUTINE 04-25-2011 [place] [address] POST TERM 04-22-2011 [facility] PG UNSPEC WOMEN'S EPIS HEALTH ASS CARE/NOT APPLIC 90643 04-22-2011 [facility] DISTRESS WOMEN'S AFFCT MGMT HEALTH ASS MOTH UNS EPIS CARE 28503 ABN FETL 04-22-2011 ST HRT [facility] RATE/RHYTHM MEDICALCENT DELIV W/WO ER ANTPRTM COND 50253 OTH&UNS CRD 04-22-2011 ST ENTANGL [facility] W/O COMPRS MEDICALCENT COMP L&D ER DELIV 69183 OTHER 04-18-2011 [facility] THREATENED WOMEN'S LABOR HEALTH ASS UNSPEC EPISODE CARE 33186 PREMATURE 04-18-2011 [facility] RUPTURE MATERNAL MEMB PG ME UNSPEC EPIS CARE V239 UNSPECIFIED 04-18-2011 [facility] HIGH-RISK MATERNAL ME V220 SUPERVISION 04-14-2011 [facility] OF NORMAL WOMEN'S FIRST HEALTH ASS 47679 EFFUSION OF 04-07-2011 ST. ANKLE AND ROG[facility] FOOT JOINT NAOMIE 32776 SWELLING OF 04-07-2011 ST. LIMB [facility] NAOMIE V7189 OBSERVATION 04-07-2011 ST. OTHER [facility] SPECIFIED NAOMIE SUSPECTED CONDITIONS V141 PERSONAL 03-13-2011 HISTORY [facility] ALLERGY MEDICALCENT OTHER ER ANTIBIOTIC AGENT 541 APPENDICITI 01-05-2011 RAD[facility]Y S, ASSOCIATES UNQUALIFIED PSC 6259 UNSPEC 01-05-2011 [facility] SYMPTOM WOMEN'S ASSOC HEALTH ASS W/FEMALE GENITAL ORGANS V143 PERSONAL 01-04-2011 HISTORY [facility] ALLERGY OT MEDICALCENT ER ANTI-INFECT MANDI AGT 95216 ABDOMINAL 01-03-2011 ST. PAIN OTHER [place] SPECIFIED NAOMIE SITE V1582 PERS HX 01-03-2011 . TOBACCO USE [place] PRESENTING NAOMIE HAZARDS HEALTH 4660 ACUTE 12-01-2010 BRONCHITIS [facility] PHYSICIANS 09538 UNSPECIFIED 11-28-2010 . [place] ARTHROPATHY NAOMIE SITE UNSPECIFIED 9150 ABRASION/FR 11-28-2010 . ICTION BURN [place] FINGER W/O NAOMIE MENTION INF 9233 CONTUSION 11-28-2010 ST. OF FINGER [facility] NAOMIE V148 PERSONAL 11-28-2010 ST. HISTORY [facility] ALLERGY OT NAOMIE SPEC MEDICINAL AGTS V7240 09-14-2010 [facility] EXAMINATION WOMEN'S /TEST HEALTH ASS UNCONFIRMED 7840 HEADACHE 09-04-2010 [facility] 15133 UNSPEC COMP 09-02-2010 [place] UNSPEC PHYSICIANS EPISODE CARE Medications Na ND [...] 10 0- 7- [address] 47 20 20 66 CA 01 17 [...] MA TA CY BL # ET 4 MA 00 02 03 18 9 00 TO [...] FOR IM USE TDAP TAYCE No VACCIN 2013 FIORDALIZA E 7 YRS/> IM Procedures Procedure DOS Code Location Performer Comment IADNA 89018 [facility] NEISSERIA 7 PHYSICIAN S GROUP GONORRHOE AE DIRECT PROBE TQ CULTURE 15913 [facility] [place] CHLAMYDIA 7 [place] [address] [place], XTRNL 7 [facility] MAJANO, DO AUDITORY CANAL W/O PHYSICIAN ANES S RADEX 07571 G[facility] GULUZIAN WRIST 6 RENETTA RENETTA COMPLETE MINIMUM 3 VIEWS SIMPLE 51259 [facility] CAMILLA SCOTT REPAIR 6 EMERGENCY SCALP/NEC K/AX/KAELA PHYSICIAN T/TRUNK S 2.5CM/< LAPAROSCO 66686 [facility] PY 6 [facility] FULGURATI INC INC ON OVIDUCTS INJECTION J2710 [facility] KING 6 [facility] NEOSTIGMI INC INC NE METHYLSUL FATE UP TO 0.5 MG INJECTION J0131 [facility] MENCHACAON 6 [facility] ACETAMINO INC INC PHEN 10 MG BLOOD 22978 [facility] K[facility] COUNT 6 [facility] HEMOGLOBI INC INC N BLOOD 42011 [facility] KING COUNT 6 [facility] HEMATOCRI INC INC T INJECTION J2405 [facility] MENCHACAON 6 [facility] ONDANSETR INC INC ON HCL PER 1 MG COLLECTIO 39834 [facility] K[facility] N VENOUS 6 [facility] BLOOD INC INC VENIPUNCT URE ANESTHESI 82400 [facility] JANICE A 6 ANESTH INTRAPERI OF THE TONEAL BLUE LOWER ABD W/LAPS NOS LAPS SURG 05409 JACKIE MCDONALD W/ASPIR 6 TAMARA SINGLETON EZE CAVITY/CY ST SINGLE/MU LTIPLE URNLS DIP 53781 [facility] KING 6 [facility] STICK/TAB INC INC LET REAGENT AUTO MICROSCOP Y COLLECTIO 07611 [facility] N VENOUS 6 [facility] BLOOD INC INC VENIPUNCT URE BLOOD 35488 [facility] K[facility] COUNT 6 [facility] COMPLETE INC INC AUTO&AUTO DIFRNTL WBC GONADOTRO 15283 [facility] K[facility] PIN 6 [facility] CHORIONIC INC INC QUALITATI VE BLOOD 24816 [facility] KING COUNT 6 [facility] HEMOGLOBI INC INC N COLLECTIO 17068 [facility] KING N VENOUS 6 [facility] BLOOD INC INC VENIPUNCT URE BLOOD 19834 [facility] KING COUNT 6 [facility] HEMATOCRI INC INC T INJECTION J2405 [facility] MENCHACAON 6 [facility] ONDANSETR INC INC ON HCL PER 1 [place] [address] [facility] TAMARA AGEE 6 PHYSICIAN EZE E S GROUP ANY TRIMESTER SURGICAL ANESTHESI 23276 [facility] 6 ANESTH SHE INCOMPLET OF THE [place] [address] [facility] SURG 6 [facility] PATHOLOGY GROSS&VENKATESH ROSCOPIC EXAM GROUND A0425 [facility] PER SERVICE SERVICE STATUTE MILE AMBULANCE A0429 [facility] SERVICE 6 AMBULANCE AMBULANCE BLS SERVICE SERVICE EMERGENCY TRANSPORT GONADOTRO 02469 [facility] PIN 6 [facility] CHORIONIC INC INC QUANTITAT MANDI GONADOTRO 03453 [facility] PIN 6 [facility] CHORIONIC INC INC QUANTITAT MANDI US PREG 60645 [facility] UTERUS 6 PHYSICIAN EZE REAL TIME S GROUP W/IMAGE DCMTN TRANSVAG BLOOD 37062 [facility] TYPING 6 [facility] SEROLOGIC INC INC ABO URINE 91381 [facility] 6 PHYSICIAN EZE TEST S GROUP VISUAL COLOR CMPRSN METHS COLLECTIO 13932 [facility] N VENOUS 6 [facility] BLOOD INC INC VENIPUNCT URE BLOOD 97148 [facility] TYPING 6 [facility] SEROLOGIC INC INC RH (D) SMR PRIM 34245 JACKIE MCDONALD SRC WET 6 TAMARA SINGLETON EZE [place]OUNT NFCT AGT IADNA 75772 BIO BIO CHLAMYDIA 6 REFERNCE REFERNCE LABORATOR LABORATOR TRACHOMAT IES IES IS AMPLIFIED PROBE TQ CYTP 49736 BIO BIO CERV/VAG 6 REFERNCE REFERNCE AUTO THIN LABORATOR LABORATOR LAYER IES IES PREP MNL SCREEN IADNA 57835 JACKIE Hubbard NEISSERIA 6 TAMARA MCDONALD MD GONORRHOE AE DIRECT PROBE TQ IADNA 36467 BIO BIO NEISSERIA 6 REFERNCE REFERNCE LABORATOR LABORATOR GONORRHOE IES IES AE AMPLIFIED PROBE TQ IADNA NOS 16183 BIO BIO 6 REFERNCE REFERNCE AMPLIFIED LABORATOR LABORATOR PROBE TQ IES IES EACH ORGANISM IADNA 98747 BIO BIO TRICHOMON 6 REFERNCE REFERNCE LABORATOR LABORATOR VAGINALIS IES IES AMPLIFIED PROBE TECH CULTURE 88226 JACKIE MCDONALD CHLAMYDIA 6 TAMARA SINGLETON EZE ANY SOURCE NEURAXIAL 80811 INDEPENDE DESCH JANICE LABOR 5 NT ANALG/ANE ANESTHESI S PLND OLOGIST VAGINAL DELIVERY VAGINAL 37416 ST ESTEBAN EDNA DELIVERY 5 [facility] ONLY W/POSTPAR PHYSICIAN MIKE CARE S [address] ST JESSICA NONSTRESS 5 ROGER MAR TEST PHYSICIAN S [address]24[address] ST JUNIOR LIL NONSTRESS 5 ROGER TEST PHYSICIAN S HOSPITAL G04[address] ST ST OUTPATIEN 5 ROGER ROGER T CLIN MED CTR MED CTR VISIT [facility] ASSESS & MGMT PT IADNA [address] CHLAMYDIA 5 [facility] MED CTR MED CTR TRACHOMAT [facility] IS AMPLIFIED PROBE TQ IADNA [address] NEISSERIA 5 [facility] R[facility]ER MED CTR MED CTR GONORRHOE [facility] [address] INFUSION 5 [facility] HYDRATION MED CTR MED CTR INITIAL [facility] [address] 31 MIN-[address] IN[address] 5 [facility]ER [facility] TERBUTALI MED CTR MED CTR NE [facility] ST SULFATE UP [place] [address] NONSTRESS 5 [facility] R[facility] TEST MED CTR MED CTR [facility] ST URNLS DIP [address] 5 [facility]OGER R[facility] STICK/TAB MED CTR MED CTR LET [facility] REAGENT AUTO MICROSCOP Y THERAPEUT [address] IC 5 ROGER ROG[facility] PROPHYLAC MED CTR MED CTR TIC/DX [facility] ST INJECTION SUBQ/IM US PREG 61269 [facility] UTERUS 5 W. LLC REAL TIME F/U TRNSABDL PER FETUS BLOOD [address] COUNT 5 ROGER ROGER COMPLETE NAOMIE NAOMIE AUTO&AUTO DIFRNTL WBC COLLECTIO 46826 . . N VENOUS 5 [facility] BLOOD NAOMIE NAOMIE VENIPUNCT URE GLUCOSE 09844 . . POST 5 [facility] GLUCOSE NAOMIE NAOMIE [place]SE [place] PREG 63881 [facility] UTERUS 5 W. LLC DON W/DETAIL RAJINDER 1ST GESTATION CYTP C/V [address] AUTO THIN 5 [facility] LYR MED CTR MED CTR PREPJ SCR [facility] MNL RESCR PHYS IADNA [address] NEISSERIA 5 [facility] MED CTR MED CTR GONORRHOE [facility] AE AMPLIFIED PROBE TQ IADNA [address] CHLAMYDIA 5 [facility] CTR MED CTR TRACHOMAT [facility] IS AMPLIFIED PROBE TQ CULTURE [address] BACTERIAL 5 [facility] CTR MED CTR QUANTTATI [facility] ST VE COLONY COUNT URINE URINE 20390 ST JESSICA 5 [facility] [facility] MAR TEST VISUAL PHYSICIAN COLOR S CMPRSN METHS IAADIADOO 66517 KENISHA 4 ROGER FIORDALIZA INFLUENZA PHYSICIAN S APPL 40223 [facility] MODALITY 4 [facility] / AREAS NAOMIE NAOMIE ELEC STIMJ UNATTENDE D THERAPEUT 69669 [facility] IC PX 1/> 4 [facility] NAOMIE NAOMIE EACH 15 MIN EXERCISES PHYSICAL 51382 [facility]. THERAPY 4 [facility] EVALUATIO NAOMIE NAOMIE N THERAPEUT 59841 [facility]. IC PX 1/> 4 [facility] NAOMIE NAOMIE EACH 15 MIN EXERCISES RADEX HIP 04499 [facility] 4 LTH LTH UNILATERA ORTHOPAED ORTHOPAED L 1 VIEW IC [address] IC CTR RADIOLOGI 25143 [facility] C 4 LTH LTH EXAMINATI ORTHOPAED ORTHOPAED ON PELVIS IC CTR IC CTR 1/2 VIEWS IM ADM [address] [facility] NAN PRQ ID 4 ROGER SUBQ/IM NJXS 1 PHYSICIAN VACCINE S IIV4 VACC [address] [facility] NAN SPLIT 4 ROGER VIRUS 0.5 ML DOS PHYSICIAN FOR IM S USE GONADOTRO [address] PIN 4 ROGER ROGER [facility]IONIC MED [facility] MED CTR [facility] QUALITATI VE VAGINAL [address] ST JESSICA DELIVERY 4 ROGER SHAHID ONLY W/POSTPAR PHYSICIAN MIKE CARE S OTHER [address] MANUALLY 4 ROGER ROGER ASSISTED MED CTR MED CTR DELIVERY [facility] ST OTHER [address] ARTIFICIA 4 ROGER ROGER L RUPTURE MED CTR MED CTR OF [facility] MEMBRANES [address] NONSTRESS 4 ROGER ROGER TEST MED CTR MED CTR [facility] [place] NONSTRESS 4 ROGER ROGER TEST MED CTR MED CTR [facility] [address] [facility] [address] IADNA [address] CHLAMYDIA 4 ROGER ROGER MED CTR MED CTR TRACHOMAT [facility] IS AMPLIFIED PROBE TQ IADNA [address] NEISSERIA 4 ROGER ROGER MED CTR MED CTR GONORRHOE [facility] AE AMPLIFIED PROBE TQ IADNA [address] STREPTOCO 4 ROGER ROGER CCUS MED CTR MED CTR GROUP B [facility] ST AMPLIFIED PROBE TQ TDAP 66350 ST TAYCE FIORDALIZA VACCINE 7 4 ROGER YRS/> IM PHYSICIAN S COLLECTIO [address] N VENOUS 4 ROGER ROGER BLOOD ELA MAHMOOD VENIPUNCT URE BLOOD [address] COUNT 4 ROGER ROGER COMPLETE ELA MAHMOOD AUTO&AUTO DIFRNTL WBC GLUCOSE [address] POST 4 ROGER ROGER GLUCOSE ELA DUBOISENCE DOSE US PREG 31523 TRISTATE COPPAGE UTERUS 4 MATERNAL KRI REAL TIME AND F/U TRNSABDL PER FETUS US PREG 91017 TRISTATE COPPAGE UTERUS 4 MATERNAL KRI W/DETAIL AND RAJINDER 1ST GESTATION CYTP C/V [address] AUTO THIN 4 ROGER ROGER LYR MED CTR MED CTR PREPJ SCR [facility] MNL RESCR PHYS URNLS DIP 72711 ST [place] 4 ROGER LIS STICK/TAB LET RGNT PHYSICIAN NON-AUTO S W/O MICRSCP IADNA [address] NEISSERIA 4 ROGER ROGER MED CTR MED CTR GONORRHOE [facility] [address] [facility] [address] ST AE AMPLIFIED PROBE TQ IADNA [address] CHLAMYDIA 4 ROGER ROGER MED CTR MED CTR TRACHOMAT [facility] IS AMPLIFIED PROBE TQ BLOOD [address] TYPING 4 ROGERASHLEY DURAN SEROLOGIC MED CTR MED CTR ABO [facility] [facility] CULTURE [address] BCT 4 ROGER DURAN ISOL&PRSM MED CTR MED CTR PTV ID [facility] ST ISOLATE EA URINE CULTURE [address] BACTERIAL 4 ROGERASHLEY FELIXBETH MED CTR MED CTR QUANTTATI [facility] VE COLONY COUNT URINE BLOOD [address] COUNT 4 ROGER ROGER COMPLETE MED CTR MED CTR AUTO&AUTO [facility] ST DIFRNTL WBC BLOOD [address] TYPING 4 ROGERENRIQUETA DAYTH SEROLOGIC MED CTR MED CTR RH (D) [facility] [address] [facility] COLLECTIO [address] N VENOUS 4 ROGER ROGER BLOOD MED CTR MED CTR VENIPUNCT [facility] [address] URE ANTIBODY [address] SCREEN 4 ROGER ROGER RBC EACH MED CTR MED CTR SERUM [facility] [facility] TECHNIQUE URINE [address]698 ST ESTEBAN EDNA 4 ROGER TEST VISUAL PHYSICIAN COLOR S CMPRSN METHS ANTIBODY [address] RUBELLA 4 ROGER ROGER MED CTR [facility] ANTIBODY [address] TREPONEMA 4 ROGER DURAN PALLIDUM MED CTR [facility] [place] [address] HEPATITIS 4 ROGER ROGER B MED CTR MED CTR SURFACE [facility] ANTIGEN US PREG 93327 RADIOLOGY KLEIMEYER UTERUS 3 FIORDALIZA REAL TIME ASSOCIATE W/IMAGE S OF NOTH DCMTN TRANSVAG URINE 83254 P[place] PENDELETO 3 N CO N CO TEST [facility] CENTER COLOR CMPRSN METHS URINE 80313 [facility] 1 ROGER DURAN TEST FT FT VISUAL ANA ANA COLOR CMPRSN METHS LEVEL III 42681 OSTERHAGE OSTERHAGE SURG 1 ANJUM ANJUM PATHOLOGY GROSS&VENKATESH ROSCOPIC EXAM ANES 56803 ST INTRAPERI 1 ROGER DURAN TONEAL FT FT UPPER ANA ANA ABDOMEN W/LAPS NOS LAPAROSCO 54964 ST PY SURG 1 ROGER DURAN CHOLECYST FT FT ECTOMY ANA ANA INJECTION J1170 ST ST 1 ROGER DURAN HYDROMORP FT FT TITI UP ANA ANA TO [address] 1 ROGER DURAN ONDANSETR FT FT ON HCL ANA ANA PER [address] 1 ROGER DURAN KETOROLAC FT FT ANA ANA TROMETHAM INE PER [address] 1 ROGER DURAN NEOSTIGMI FT FT NE ANA ANA METHYLSUL FATE UP TO 0.[address] FENTANYL 1 ROGER DURAN CITRATE FT FT 0.1 MG ANA ANA INJECTION J0690 [address] 1 ROGER DURAN CEFAZOLIN FT FT SODIUM ANA ANA [address] 1 ROGER DURAN MIDAZOLAM FT FT HCL PER ANA ANA [address] COUNT 1 ROGER ROGER COMPLETE MED CTR MED CTR AUTO&AUTO [facility] DIFRNTL WBC HEPATIC [address] FUNCTION 1 ROGER ROGER PANEL MED CTR MED CTR [facility] [place] [address] AMYLASE 1 ROGER ROGER MED CTR MED [facility] [address] FOLIC 1 ROGER ROGER ACID MED CTR MED CTR SERUM [facility] ACUTE [address] HEPATITIS 1 ROGER ROGER PANEL MED CTR MED CTR [facility] CYANOCOBA [address] RADHA 1 ROGER ROGER VITAMIN MED CTR MED CTR B-[address] [place] [address] LIPASE 1 ROGER ROGER MED CTR MED CTR [place] [place] [address] RADIOLOGY RADIOLOGY ABDOMINAL 1 REAL ASSOCIATE ASSOCIATE TIME S OF NOTH S OF NOTH W/IMAGE LIMITED BASIC [address] METABOLIC 1 ROGER ROGER PANEL MED CTR MED CTR CALCIUM [facility] TOTAL HEPATIC [address] FUNCTION 1 ROGER ROGER PANEL MED CTR MED [facility] [facility] [address]LO[address] COUNT 1 ROGER ROGER COMPLETE MED CTR MED CTR AUTO&AUTO [facility] DIFRNTL WBC POSTPARTU 96695 [facility] 1 [facility] ONLY HEALTH SEPARATE ASS PROCEDURE VAGINAL 73837 [facility] WOESTE DELIVERY 1 WOMEN'S MALCOM ONLY HEALTH ASS [address] NONSTRESS 1 ROGER ROGER [place] [address] 1 ROGER ROGER UTERUS LIMITED MEDICALCE MEDICALCE 1/> NTER NTER FETUSES OBSERVATI 07162 [facility] ASS CARE 50 MINUTES URNLS DIP [address]148 [place] [address] WOMEN[facility]S GAR STICK/TAB HEALTH LET RGNT ASS NON-AUTO W/O MICRSCP 79585 [facility] NONSTRESS 1 ROGER ROGER TEST MEDICALCE MEDICALCE NTER NTER DUP-SCAN 39270 [facility]. XTR VEINS 1 ROGER ROGER NAOMIE NAOMIE UNILATERA L/LIMITED STUDY URNLS DIP 39518 [place] [address] WOMEN'S BRAD STICK/TAB HEALTH LET RGNT ASS NON-AUTO W/O MICRSCP URNLS DIP 13199 [place] [address] WOMEN'S GAR STICK/TAB HEALTH LET RGNT ASS NON-AUTO W/O MICRSCP 18389 [facility] NONSTRESS 1 ROGER FELIXBETH TEST MEDICALCE MEDICALCE NTER NTER URNLS DIP 88211 [place] [address] WOMEN'S BRAD STICK/TAB HEALTH LET RGNT ASS NON-AUTO W/O MICRSCP URNLS DIP 18089 [facility] 1 ROGER ROGER STICK/TAB LET MEDICALCE MEDICALCE REAGENT NTER NTER AUTO MICROSCOP [place] [address] [facility] NONSTRESS 1 ROGER ROGER TEST MEDICALCE MEDICALCE NTER NTER URNLS DIP 62017 [place] [address] WOMEN'S GAR STICK/TAB HEALTH LET RGNT ASS NON-AUTO W/O MICRSCP IADNA 93844 [facility] STREPTOCO 1 ROGER ROGER CCUS GROUP B MEDICALCE MEDICALCE AMPLIFIED NTER NTER PROBE TQ THERAPEUT 40848 [facility] IC 1 ROGER ROGER PROPHYLAC TIC/DX MEDICALCE MEDICALCE INJECTION NTER NTER SUBQ/IM URNLS DIP [address] 1 ROGER ROGER STICK/TAB LET MEDICALCE MEDICALCE REAGENT NTER NTER AUTO [place]CROSCOP Y [address] [facility] NONSTRESS 1 ROGER ROGER TEST MEDICALCE MEDICALCE NTER NTER URNLS DIP 14282 [place] [address] WOMEN'S GAR STICK/TAB HEALTH LET RGNT ASS NON-AUTO W/O MICRSCP URNLS DIP 67934 [place] [address] WOMEN'S GAR STICK/TAB HEALTH LET RGNT ASS NON-AUTO W/O MICRSCP URNLS DIP 97644 [place] [address] WOMEN'S GAR STICK/TAB HEALTH LET RGNT ASS NON-AUTO W/O MICRSCP URNLS DIP 47906 [place] [address] [facility] G[facility] STICK/TAB HEALTH LET RGNT [place] [address] [place] ABDOMINAL 1 ROGER DURAN REAL TIME MEDICALCE MEDICALCE W/IMAGE NTER NTER LIMITED INITIAL 12358 [facility] OBSERVATI 1 ROGER DURAN ON CARE/DAY MEDICALCE MEDICALCE 50 NTER NTER MINUTES HOSPITAL [address] [place] [address] [facility] DAY HEALTH MANAGEMEN ASS T 30 MIN/< INITIAL 72334 PHYSICIAN OBSERVATI 1 ROGER POE ON LABORATOR CARE/DAY MEDICALCE Y 50 NTER MINUTES THER [address] PROPH/DX 1 ROGER DURAN NJX IV PUSH MEDICALCE MEDICALCE SINGLE/1S NTER NTER T SBST/DRUG SBSQ 04612 [place] [address] [facility] CARE/DAY HEALTH 25 ASS MINUTES US [facility] [address] UTERUS 1 ROGER DURAN W/DETAIL MEDICALCE MEDICALCE RAJINDER 1ST NTER NTER GESTATION URNLS DIP 96473 ST 1 ROGER DURAN STICK/TAB LET MEDICALCE MEDICALCE REAGENT NTER NTER AUTO MICROSCOP Y HEPATIC [address] FUNCTION 1 ROGER DURAN PANEL MEDICALCE MEDICALCE NTER NTER BLOOD 61805 [facility] COUNT 1 ROGER DURAN COMPLETE AUTOMATED [place] [address] [facility] AMYLASE 1 ROGER ROGER MEDICALCE MEDICALCE NTER NTER THER [address] PROPH/DX 1 ROGER DURAN NJX EA SEQL IV MEDICALCE MEDICALCE PUSH NTER NTER SBST/DRUG FAC MRI [address] PELVIS 1 ROGER DURAN W/O CONTRAST MEDICALCE MEDICALCE MATERIAL NTER NTER COLLECTIO [address] N VENOUS 1 ROGER FELIXBETH BLOOD NAOMIE NAOMIE VENIPUNCT URE BLOOD [address] COUNT 1 ROGER DURAN COMPLETE NAOMIE NAOMIE AUTO&AUTO DIFRNTL WBC URNLS DIP [address] 1 ROGER DURAN STICK/TAB NAOMIE NAOMIE LET RG[place] NON-[place] [address] [facility] [address] INFUSION 1 ROGER DURAN HYDRATION NAOMIE NAOMIE EACH ADDITIONA L HOUR THER [address] PROPH/DX 1 ROGER DURAN NJX IV NAOMIE NAOMIE PUSH SINGLE/1S T SBST/DRUG INITIAL 64204 [facility] 1 [facility] CARE/DAY HEALTH 70 ASS MINUTES GLUCOSE [address] [facility] 1 ROGER DAYTH GLUCOSE NAOMIE NAOMIE DOSE BLOOD [address] [facility] [address] COUNT 1 ROGER DURAN HEMOGLOBI NAOMIE NAOMIE N COLLECTIO 33070 . ST. N VENOUS 1 ROGER DAYTH BLOOD NAOMIE NAOMIE VENIPUNCT URE URNLS DIP 88720 [facility] 1 WOMEN'S KIR STICK/TAB HEALTH LET RGNT ASS NON-AUTO W/O MICRSCP RADEX 55614 RADIOLOGY HURST MARTA FINGR 1 MINIMUM 2 ASSOCIATE VIEWS S PSC URNLS DIP 73096 [facility] 1 WOMEN'S BRAD STICK/TAB HEALTH LET RGNT ASS NON-AUTO W/O MICRSCP US PREG 18847 [facility] UTERUS 1 WOMEN'S MALCOM W/DETAIL HEALTH ASS RAJINDER 1ST GESTATION URNLS DIP 37862 [facility] 1 WOMEN'S MALCOM STICK/TAB HEALTH LET RGNT ASS NON-AUTO W/O MICRSCP URNLS DIP 54377 [facility] 1 WOMEN'S BRAD STICK/TAB HEALTH LET RGNT ASS NON-AUTO W/O MICRSCP URINE 71364 [facility] 1 WOMEN'S [facility] HEALTH VISUAL ASS ASS COLOR CMPRSN METHS URINE 95788 P[place] PENDELETO 1 N CO N CO TEST [facility]ALTH [facility] VISUAL CENTER CENTER COLOR CMPRSN METHS Encounters Encounter Start End Date Code Location Performer Type Date OFFICE 38501 [facility] OUTPATI[facility] 7 7 PHYSICIAN T VISIT S GROUP 15 MINUTES OFFICE 82950 [facility] OUTPATIEN 7 7 PHYSICIAN T VISIT S GROUP 15 MINUTES PERIODIC 46123 [facility] 7 PHYSICIAN E MED EST S GROUP PATIENT 18-[address] [facility], OUTPATIEN 7 7 ROGER MAJANO DO T VISIT 10 PHYSICIAN MINUTES S OFFICE [address]3027 [facility] OUTPATIEN 7 7 ROGER Wynn VISIT 25 PHYSICIAN MINUTES S OFFICE [address] [facility] NAN OUTPATIEN 6 6 ROGER Wynn VISIT 15 PHYSICIAN MINUTES S EMERGENCY 22530 [facility] 6 6 EMERGENCY DEPARTMEN T VISIT PHYSICIAN HIGH/URGE S NT SEVERITY [facility] - 6 6 [facility] T EMERGENCY 88515 ZHANE CALVO 6 6 PHYSICIAN U JANICE DEPARTMEN S, [facility] T VISIT HIGH/URGE NT SEVERITY [facility]OSP[facility] - 6 6 [facility] OUTPATIEN INC T EMERGENCY 72882 [facility] DEPT 6 6 [facility] VISIT INC HIGH SEVERITY& THREAT FUNCJ OFFICE 04902 [facility] OUTPATIEN 6 6 PHYSICIAN EZE T VISIT S GROUP 25 MINUTES [facility] - 6 6 [facility] INC T OFFICE 63190 [facility] OUTPATIEN 6 6 PHYSICIAN EZE T VISIT S GROUP 25 MINUTES [facility]OSP[facility] - 6 6 [facility] OUTPATIEN INC T OFFICE 35675 JACKIE MCDONALD OUTPATIEN 6 6 TAMARA SINGLETON EZE T VISIT 15 MINUTES OFFICE 19525 JACKIE MCDONALD OUTPATIEN 6 6 TAMARA SINGLETON EZE T VISIT 25 MINUTES INITIAL 65872 JACKIE MCDONALD PREVENTIV 6 6 TAMARA LOO E MEDICINE NEW PT AGE 18-39YRS OFFICE 05222 ST [facility] OUTPATIEN 5 5 ROGER MAR T VISIT 15 PHYSICIAN MINUTES [facility] ST - 5 5 ROGER OUTPATIEN MED CTR T [facility] OFFICE [address]61 ST [facility] OUTPATIEN 5 5 ROGER MAR T VISIT 15 PHYSICIAN MINUTES [facility] ST - 5 5 ROGER OUTPATIEN MED CTR T [facility] [address] [facility] OFFICE 73131 ST [facility] OUTPATIEN 5 5 ROGER T VISIT 15 PHYSICIAN MINUTES S OFFICE 03657 ST [facility] OUTPATIEN 5 5 ROGER MAR T VISIT 15 PHYSICIAN MINUTES [facility] ST - 5 5 ROGER OUTPATIEN MED CTR T [facility] [address] [facility] OFFICE 18242 ST OUTPATIEN 5 5 ROGER T VISIT MED CTR [address] [facility] ST - 5 5 ROGER OUTPATIEN MED CTR T [facility] [address] [address] OFFICE 13721 ST EST[facility]DNA OUTPATIEN 5 5 ROGER T VISIT 15 PHYSICIAN MINUTES S OFFICE 67990 ST [facility] OUTPATIEN 5 5 ROGER MAR T VISIT [address] [facility] - 5 5 ROGER OUTPATIEN NAOMIE T OFFICE 81757 ST [facility]DNA OUTPATIEN 5 5 ROGER T VISIT 15 PHYSICIAN MINUTES S OFFICE 98079 JESSICA JESSICA OUTPATIEN 5 5 MAR MAR T VISIT [address] KEN[facility]HA OUTPATIEN 5 5 ROGER FIORDALIZA T VISIT [address] [facility] - 5 5 ROGER OUTPATIEN MED CTR T [facility] OFFICE 60831 [facility] 5 ROGER KOTA T VISIT 15 PHYSICIAN MINUTES [facility] ST - 5 5 ROGER OUTPATIEN MED CTR T [facility] [address] [address] [facility] EMERGENCY 97596 [facility] 5 5 EMERGENCY MALCOM DEPARTMEN T VISIT PHYSICIAN HIGH/URGE S [facility] HOSPITAL ST - 5 5 ROGER OUTPATIEN MED CTR T [facility] OFFICE 32391 ST [facility] NAN OUTPATIEN 5 5 ROGER T VISIT 15 PHYSICIAN MINUTES S OFFICE 85356 ST K[facility] OUTPATIEN 4 4 ROGER FIORDALIZA T VISIT 15 PHYSICIAN MINUTES S OFFICE 16139 [facility] OUT[facility] 4 4 LTH LTH T VISIT ORTHOPAED ORTHOPAED 15 IC CTR IC CTR [facility] ST[facility] - 4 4 ROGER [facility]IEN [facility] - 4 4 ROGER OUTPATIEN NAOMIE T OFFICE 05835 [facility] OUTPATI[facility] 4 4 LTH LTH T VISIT ORTHOPAED ORTHOPAED 15 IC CTR IC CTR MINUTES OFFICE 38236 ST [facility] NAN OUTPATIEN 4 4 ROGER T VISIT 15 PHYSICIAN MINUTES [facility] ST - 4 4 ROGER OUTPATIEN MED CTR T [facility] OFFICE 11052 SEDA SEDA OUTPATIEN 4 4 ALP ALP T [facility] 60 MINUTES [facility] ST - 4 4 ROGER INPATIENT MED CTR [facility] OFFICE 92025 ST [facility] OUTPATIEN 4 4 ROGER MAR T VISIT 15 PHYSICIAN MINUTES [facility] ST - 4 4 ROGER OUTPATIEN MED CTR T [facility] [address] [facility] OFFICE 42240 ST JESS[facility] OUTPATIEN 4 4 ROGER MAR T VISIT [address] PHYSIC[address] [facility] [address] - 4 4 ROGER OUTPATIEN MED CTR T [facility] OFFICE 62351 ST J[facility] OUTPATIEN 4 4 ROGER MAR T VISIT 15 PHYSICIAN MINUTES S OFFICE 82577 ST [facility] OUTPATIEN 4 4 ROGER MAR T VISIT 15 PHYSICIAN MINUTES S OFFICE 69834 ST J[facility] OUTPATIEN 4 4 ROGER MAR T VISIT [address] [facility] [address] - 4 4 ROGER OUTPATIEN MED CTR T [facility] OFFICE 38809 ST JESS[facility] OUTPATIEN 4 4 ROGER MAR T VISIT 15 PHYSICIAN MINUTES S OFFICE 10485 ST [facility] OUTPATIEN 4 4 ROGER MAR T VISIT 15 PHYSICIAN MINUTES S OFFICE 08827 ST OUTPATIEN 4 4 ROGER T VISIT MED CTR [address] [facility] ST - 4 4 ROGER OUTPATIEN MED CTR T [facility] [address] OFFICE 85194 ST MAURA FIORDALIZA OUTPATIEN 4 4 ROGER T VISIT 15 PHYSICIAN MINUTES S OFFICE 46548 ST JESSICA OUTPATIEN 4 4 ROGER MAR T VISIT 15 PHYSICIAN MINUTES S OFFICE 80610 ST ESTEBAN EDNA OUTPATIEN 4 4 ROGER T VISIT [address] [facility] - 4 4 ROGER OUTPATIEN [facility] ST - 4 4 ROGER OUTPATIEN MED CTR T [facility] OFFICE 23637 ST EST[facility] EDNA OUTPATIEN 4 4 ROGER T VISIT 15 PHYSIC[address] [facility] [address] - 4 4 ROGER OUTPATIEN MED CTR T [facility] [address] [facility] OFFICE 59866 [facility] OUTPATIEN 4 4 ROGER LIS T VISIT [address] PH[address] [facility] - 4 4 ROGER OUTPATIEN MED CTR T [facility] [address] [facility] OFFICE 66955 [facility] OUTPATIEN 4 4 ROGER LIS T VISIT [address] - 4 4 ROGER OUTPATIEN MED [facility] - 3 3 ROGER OUTPATIEN MED CTR T [facility] EMERGENCY 57301 RICHARD DEPT 3 3 ROGER N GLADIS VISIT MED CTR HIGH SEVERITY& THREAT FUNCJ EMERGENCY 22016 ST 3 3 ROGER DEPARTMEN MED CTR T VISIT [facility] HIGH/URGE NT SEVERITY OFFICE 73003 [facility] PENDELETO OUTPATIEN 3 3 N CO N CO T VISIT HEALTH HEALTH 15 CENTER [facility] ST - 1 1 ROGER OUTPATIEN FT T ANA OFFICE 78504 JULISSA EPSTEINI OUTPATIEN 1 1 NOR NOR T VISIT 15 MINUTES OFFICE 48464 KENISHA DE OUTPATIEN 1 1 FIORDALIZA FIORDALIZA T VISIT [address] - 1 [address] OUT[address]IEN [address] [facility] - 1 1 ROGER OUTPATIEN [facility] ST - 1 1 ROGER OUTPATIEN MED CTR T [facility] EMERGENCY 89422 RICHARDSO RICHARDSO 1 1 N GLADIS N GLADIS DEPARTMEN T VISIT HIGH/URGE [facility] H[facility]PITAL ST - 1 1 ROGER OUTPATIEN T MEDICALCE NTER [facility] 25085 [facility] ROGER T VISIT 5 MINUTES MEDICALCE [facility] ST - 1 1 ROGER INPATIENT MEDICALCE NTER OFFICE 51303 [facility] OUTPATIEN 1 1 WOMEN'S KIR T VISIT HEALTH 15 ASS MINUTES [facility] ST - 1 1 ROGER OUTPATIEN T MEDICALCE NTER OFFICE 59926 OUTPATI 1 1 ROGER T VISIT 40 MEDICALCE MINUTES NTER OFFICE 01047 [facility] OUTPATIEN 1 1 WOMEN'S GAR T VISIT HEALTH [address] - 1 1 ROGER OUTPATIEN T MEDICALCE NTER OFFICE 17050 OUTPATIEN 1 1 ROGER T VISIT 40 MEDICALCE MINUTES [facility] ST. - 1 1 ROGER OUTPATIEN NAOMIE T OFFICE [address] [facility] 1 1 WOMEN'S BRAD T VISIT HEALTH 15 ASS MINUTES OFFICE 63791 [facility] 1 1 WOMEN'S GAR T VISIT HEALTH 15 ASS MINUTES OFFICE 56172 [facility] 1 1 ROGER T VISIT 40 MEDICALCE MINUTES [facility] - 1 1 ROGER OUTPATIEN T MEDICALCE [facility] OFFICE [address] [facility] 1 1 WOMEN'S BRAD T VISIT HEALTH 15 ASS MINUTES OFFICE 65642 [facility] 1 1 ROGER T VISIT 40 MEDICALCE MINUTES [facility] - 1 1 ROGER OUTPATIEN T MEDICALCE [facility] - 1 1 ROGER OUTPATIEN T MEDICALCE [facility] OFFICE 12269 [facility] 1 1 WOMEN'S GAR T VISIT HEALTH 15 ASS MINUTES OFFICE 46493 [facility] 1 1 ROGER T VISIT 40 MEDICALCE MINUTES [facility] - 1 1 ROGER OUTPATIEN T MEDICALCE NTER OFFICE 88268 [facility] 1 1 WOMEN'S GAR T VISIT HEALTH 15 ASS MINUTES OFFICE 77847 [facility] 1 1 WOMEN'S GAR T VISIT HEALTH 15 ASS MINUTES OFFICE 12862 [facility] 1 1 WOMEN'S GAR T VISIT HEALTH 15 ASS MINUTES OFFICE 31306 [facility] WOMEN'S GAR T VISIT HEALTH [address] - 1 1 ROGER ORANTESEN T MEDICALCE NTER EMERGENCY 79532 [facility] 1 1 ROGER JANICE DEPARTMEN MED CTR T VISIT HIGH/URGE NT SEVERITY [facility] ST[facility] - 1 1 ROGER GARCÍAPATIEN [facility] - 1 1 ROGER OUTPATIEN NAOMIE T OFFICE 58885 [facility] OUTPATIEN 1 1 WOMEN'S KIR T VISIT HEALTH 15 ASS MINUTES OFFICE 33690 [facility] OUTPATIEN 1 1 ROGER FISHS T VISIT [address] - 1 1 ROGER GARCÍAPATIEN NAOMIE T EMERGENCY 63853 [facility] 1 1 ROGER DEPARTMEN MED CTR T VISIT MODERATE SEVERITY OFFICE 52136 [facility] OUTPATIEN 1 1 WOMEN'S BRAD T VISIT HEALTH 15 ASS MINUTES OFFICE 94952 [facility] OUT[facility] 1 1 WOMEN'S MALCOM T VISIT HEALTH 15 ASS MINUTES OFFICE 53982 [facility] OUTPATIEN 1 1 WOMEN'S BRAD T VISIT HEALTH 15 ASS MINUTES OFFICE 71125 [facility] OUTPATIEN 1 1 WOMEN'S GAR T NEW 45 HEALTH MINUTES ASS EMERGENCY [address]37 [facility] 1 1 ROGER DEPARTMEN MED CTR T VISIT HIGH/URGE NT SEVERITY OFFICE 58264 [facility] OUTPATIEN 1 1 ROGER T VISIT 15 PHYSICIAN MINUTES S OFFICE 76351 [facility] P[facility] OUTPATIEN 1 1 N CO N CO T NEW 20 HEALTH HEALTH MINUTES [facility]ENTER [facility]
--- OUTSIDE RECORDS SUMMARY | 2016-10-31 06:27 | External Medical Summary Rpt ---
Author Author , Organization [employer] Address Unknown Phone Unavailable Care Team Providers Care School Office Manager Name Role Phone BEAVEN BRAD, BEAVEN Unavailable Unavailable BRAD JUÁREZ KIR, JUÁREZ Unavailable Unavailable KIR [facility] Unavailable Unavailable [facility], [facility] FIELD JANICE, FIELD JANICE Unavailable Unavailable [facility] Unavailable Unavailable SERVICE, [facility] Unavailable Unavailable SERVICE, [facility] JACQUES JANICE, JACQUES Unavailable Unavailable [facility]available Unavailable [facility] Unavailable Unavailable PHYSICIANS, [facility] [...] [facility], Unavailable Unavailable [facility] HURST MARTA, HURST MARTA [...] [facility], [facility] Unavailable Unavailable [facility] Unavailable Unavailable CENTER, [facility], , Unavailable Unavailable [facility], [facility] Unavailable Unavailable LABORATORY, [facility] Unavailable Unavailable OF NOT, [facility]available Unavailable OF [facility], [facility] Unavailable Unavailable [facility], [facility] [...] [facility] Unavailable Unavailable PER DIEM INTERPRETER ST, [facility] PER DIEM INTERPRETER [facility] Un[facility] Un[facility], [facility] Un[facility], [facility], Unavailable Unavailable [facility] MAURA MANCERA, MAURA MANCERA Unavailable Unavailable [facility] # Unavailable Unavailable 4, [facility] # 4 [facility] Unavailable Unavailable [facility], [facility] [employer], Unavailable Unavailable [employer] [facility] Unavailable Unavailable ME, [facility] TONY DEW, TONY DEW Unavailable Unavailable WOESTE MALCOM, WOESTE Unavailable Unavailable MALCOM SAMANTA MALCOM, SAMANTA MALCOM Unavailable Unavailable Purpose Continuity of Care Document - 08-11-2010 through 2016 Problems Code Diagnosis DOS Provider Status N393 STRESS 10-06-[address] [facility] INCONTINENC PHYSICIANS E FEMALE GROUP MALE N819 FEMALE 10-06-[address] [facility] GENITAL PHYSICIANS PROLAPSE GROUP UNSPECIFIED N3644 MUSCULAR 09-05-[address] [facility] DISORDERS PHYSICIANS OF [place] GROUP [id number] ENCOUNTER 08-22-[address] [facility] CAPTAIN AIRLINE PILOT EXAM PHYSICIANS GENERAL RTN GROUP W/O ABNORMAL FIND K177SGO FOREIGN 08-20-2016 ST BODY IN [facility] LEFT EAR PHYSICIANS INITIAL ENCOUNTER B9789 OTH VIRAL 07-30-2016 ST AGENT CAUSE [facility] DISEASES PHYSICIANS CLASSIFIED ELSW J069 ACUTE UPPER 07-30-2016 [facility] RESPIRATORY PHYSICIANS INFECTION UNSPECIFIED T148 OTHER 11-27-2015 ST INJURY OF [facility] UNSPECIFIED PHYSICIANS BODY REGION [id number] OTHER EARLY 11-27-2015 [facility] COMPLICATIO PHYSICIANS NS TRAUMA INITIAL ENCNTR Z4802 ENCOUNTER 11-27-2015 ST FOR REMOVAL [facility] OF SUTURES PHYSICIANS M7989 OTHER 11-20-2015 [facility] SPECIFIED [facility] SOFT TISSUE DISORDERS [id number] LAC W/O FB 11-20-2015 [facility] UNS FINGER EMERGENCY W/O DAMAGE PHYSICIANS NAIL INITIAL [id number] PUNCTURE 11-20-2015 [facility] WOUND W/O EMERGENCY FB UNS HAND PHYSICIANS INITIAL ENC [id number] OPEN BITE 11-20-2015 GUL[facility]IAN OF RIGHT RENETTA WRIST INITIAL ENCOUNTER [id number] BITTEN BY 11-20-2015 [facility] DOG INITIAL EMERGENCY ENCOUNTER PHYSICIANS N8320 UNSPECIFIED 10-16-2015 [facility] CYSTS INC Z302 ENCOUNTER 10-16-2015 [facility] STERILIZATI INC ON H71072 ENCOUNTER 10-12-2015 [facility] PREPROCEDUR [...] PAIN SERVICE O200 THREATENED 10-02-[address] [facility] PHYSICIANS GROUP N925 OTHER 09-10-2015 JACKIE MCDONALD MD IRREGULAR MENSTRUATIO N N760 ACUTE 09-07-2015 JACKIE Hubbard VAGINITIS TAMARA SINGLETON Z3009 ENCOUNTER 09-07-2015 JACKIE Hubbard [facility] TAMARA SINGLETON ONCOLOGY RADIATION PHYSICIAN&ADV ICE CONTRACEPT O80 ENCOUNTER 04-24-2015 ST FOR [facility] FULL-TERM PHYSICIANS UNCOMPLICAT ED DELIVERY Z370 SINGLE LIVE 04-24-2015 ST [facility] PHYSICIANS Z3A40 40 WEEKS 04-24-2015 ST GESTATION [facility] OF PHYSICIANS [id number] DECREASED 04-21-2015 ST [facility] MOVEMENTS PHYSICIANS THIRD TRI FETUS 1 Z3483 ENC 04-21-2015 ST SUPERVISION [facility] OTH NORMAL PHYSICIANS 3 TRIMESTER Z3A39 39 WEEKS 04-21-2015 ST GESTATION R[facility] OF PHYSICIANS O622 OTHER 04-13-2015 ST UTERINE [facility] INERTIA PHYSICIANS O628 OTHER 04-13-2015 ST ABNORMALITI [facility] ES OF MED CTR PER DIEM INTERPRETER FORCES OF ST LABOR Z0371 ENCOUNTER 04-13-2015 ST SUSP PROB [facility] AMNIOTIC PHYSICIANS CAV MEMB RULED OUT Z36 ENCOUNTER 04-13-2015 ST FOR [facility] MED CTR PER DIEM INTERPRETER SCREENING ST OF MOTHER Z3A38 38 WEEKS 04-13-2015 ST GESTATION ROG[facility] OF PHYSICIANS V221 SUPERVISION 03-17-2015 ST OF OTHER [facility]OG[facility] NORMAL PHYSICIANS 96378 THREATENED 03-12-2015 ST PREMATURE [facility] LABOR MED CTR PER DIEM INTERPRETER ANTEPARTUM ST V2889 OTHER 03-12-2015 ST SPECIFIED [facility] MED CTR PER DIEM INTERPRETER SCREENING ST 62245 OBESITY, 03-06-2015 ST UNSPECIFIED [facility] PER DIEM [place] ST 12779 OTHER 03-06-2015 [facility] SPECIFED [facility] COMPLICATIO N ANTEPARTUM 59314 TOB USE D/O 03-06-2015 ST COMP PG R[facility] /PP MED CTR PER DIEM INTERPRETER ANTEPARTM ST COND/COMP 44966 OBES COMP 03-06-2015 ST PG [facility] /THE MED CTR PER DIEM INTERPRETER PP ST ANTEPARTUM COND/COMP V8533 BODY MASS 03-06-2015 ST INDEX [facility] 33.0-33.9 MED CTR PER DIEM INTERPRETER ADULT ST 4610 ACUTE 12-17-2014 ST MAXILLARY [facility] SINUSITIS PHYSICIANS V222 12-17-2014 STATE, [facility] INCIDENTAL PHYSICIANS 12453 UNS 12-03-2014 [facility] ABNORM MGMT [facility] MOTH ANTPRTM COND/COMP V2389 SUPERVISION 09-29-2014 ST OF OTHER [facility] HIGH-RISK MED CTR PER DIEM INTERPRETER ST 5589 OTH&UNSPEC 09-17-2014 [facility] NONINFECTIO EMERGENCY US PHYSICIANS GASTROENTER ITIS&COLITI S V7242 09-11-2014 EXAMINATION [facility] OR TEST PHYSICIANS POSITIVE RESULT 3829 UNSPECIFIED 07-16-2014 ST OTITIS [facility] MEDIA PHYSICIANS 4619 ACUTE 07-16-2014 ST SINUSITIS, [facility] UNSPECIFIED PHYSICIANS 4871 INFLUENZA 06-04-2014 ST WITH OTHER R[facility] RESPIRATORY PHYSICIANS MANIFESTATI ONS 43099 FEVER 06-04-2014 ST UNSPECIFIED [facility] PHYSICIANS 02077 PAIN IN 05-27-2014 [facility] THIGH 7245 UNSPECIFIED 05-19-2014 ST. BACKACHE [facility] NAOMIE V571 OTHER 05-19-2014 ST. PHYSICAL [facility] THERAPY NAOMIE 26990 SCOLIOSIS , 05-06-2014 [facility] 6260 ABSENCE OF 03-31-2014 ST MENSTRUATIO ROG[facility] N PHYSICIANS V0481 NEED 03-31-2014 ST PROPHYLACTI ROGER C PHYSICIANS VACCINATION &INOCULATIO N FLU V2549 SURVEILLANC 01-31-2014 [facility] ALP E OTH PREV PRSC CONTRACEPT METHOD 51271 ASTHMA, 01-05-2014 ST UNSPECIFIED [facility] , MED CTR PER DIEM INTERPRETER UNSPECIFIED ST STATUS 02381 OTH CURRENT 01-05-2014 ST MATERNAL [facility] CCE MED CTR PER DIEM INTERPRETER W/DELIVERY ST 61908 TOBACCO USE 01-05-2014 ST D/O COMP [facility] PG MED CTR PER DIEM INTERPRETER CHILDBIRTH/ ST PP DELIVERED 650 NORMAL 01-05-2014 ST DELIVERY [facility] PHYSICIANS 99358 OTHER 01-05-2014 ST SPECIFIED [facility] TRAUMA MED CTR PER DIEM INTERPRETER PERINEUM&VU ST LVA W/DELIVERY V270 OUTCOME OF 01-05-2014 ST DELIVERY [facility] SINGLE PHYSICIANS LIVEBORN 44678 OTHER 12-29-2013 ST THREATENED [facility] LABOR, MED CTR PER DIEM INTERPRETER ANTEPARTUM ST V289 UNSPECIFIED 12-29-2013 ST [facility] SCREENING MED CTR PER [place]EM [place] 06949 DECR 11-02-2013 ST MOVMNTS [facility] MGMT MOTH MED CTR PER DIEM INTERPRETER ANTPRTM ST COND/COMP V036 NEED PROPH 10-29-2013 ST VACC&INOCUL [facility] AT AGAINST PHYSICIANS PERTUSS ALONE V061 NEED PROPH 10-29-2013 ST VAC W/COMB [facility] DIPHTH-TETA PHYSICIANS NUS-PERTUSS VAC V8531 BODY MASS 09-11-2013 ST INDEX [facility] 31.0-31.9 MED CTR PER DIEM INTERPRETER ADULT ST 69718 OTH SPEC 08-12-2013 ST MALPSTN/MAL [facility] PRESENTATIO MED CTR PER DIEM INTERPRETER N FETUS ST ANTPRTM 35976 ABDOMINAL 06-01-2013 [facility] UNSPECIFIED OF NOT SITE 13533 OTH CURRENT 05-31-2013 ST MAT CONDS [facility] CLASSIFIABL MED CTR PER DIEM INTERPRETER E ELSW ST ANTPRTM 52085 ABDOMINAL 05-31-2013 ST PAIN RIGHT [facility] LOWER MED CTR QUADRANT 25518 CALCU 05-26-2011 ST GALLBLADD ROGER W/O MENTION PHYSICIANS CHOLECYST/O BST V5869 LONG-TERM 05-26-2011 ST (CURRENT) ROGER USE OF FT ANA OTHER MEDICATIONS 69439 OTHER COMPL 05-13-2011 ST. OF R[facility]ER PUERPERIUM NAOMIE PP COND/COMPL 31902 ABDOMINAL 05-13-2011 ST. PAIN RIGHT [facility] UPPER NAOMIE QUADRANT 79464 LEUKOCYTOSI 05-10-2011 ST S [facility] UNSPECIFIED MED CTR PER DIEM INTERPRETER ST 7906 OTHER 05-10-2011 ST ABNORMAL [facility] BLOOD MED CTR PER DIEM INTERPRETER CHEMISTRY ST V242 ROUTINE 04-25-2011 [place] [address] POST TERM 04-22-2011 [facility] PG UNSPEC WOMEN'S EPIS HEALTH ASS CARE/NOT APPLIC 42835 04-22-2011 [facility] DISTRESS WOMEN'S AFFCT MGMT HEALTH ASS MOTH UNS EPIS CARE 84908 ABN FETL 04-22-2011 ST HRT [facility] RATE/RHYTHM MEDICALCENT DELIV W/WO ER ANTPRTM COND 00847 OTH&UNS CRD 04-22-2011 ST ENTANGL [facility] W/O COMPRS MEDICALCENT COMP L&D ER DELIV 72623 OTHER 04-18-2011 [facility] THREATENED WOMEN'S LABOR HEALTH ASS UNSPEC EPISODE CARE 18412 PREMATURE 04-18-2011 [facility] RUPTURE MATERNAL MEMB PG ME UNSPEC EPIS CARE V239 UNSPECIFIED 04-18-2011 [facility] HIGH-RISK MATERNAL ME V220 SUPERVISION 04-14-2011 [facility] OF NORMAL [facility]'S FIRST [facility] 14114 EFFUSION OF 04-07-2011 ST. ANKLE AND ROGER FOOT JOINT NAOMIE 81498 SWELLING OF 04-07-2011 ST. LIMB ROGER NAOMIE V7189 OBSERVATION 04-07-2011 ST. OTHER ROGER SPECIFIED NAOMIE SUSPECTED CONDITIONS V141 PERSONAL 03-13-2011 HISTORY [facility] ALLERGY MEDICALCENT OTHER ER ANTIBIOTIC AGENT 541 APPENDICITI 01-05-2011 [facility] S[facility] UNQUALIFIED PSC 6259 UNSPEC 01-05-2011 [facility] SYMPTOM WOMEN'S ASSOC HEALTH ASS W/FEMALE GENITAL ORGANS V143 PERSONAL 01-04-2011 HISTORY [facility] ALLERGY OT MEDICALCENT ER ANTI-INFECT MANDI AGT 88434 ABDOMINAL 01-03-2011 ST. PAIN OTHER ALAMO SPECIFIED NAOMIE SITE V1582 PERS HX 01-03-2011 . TOBACCO USE [facility] PRESENTING NAOMIE HAZARDS HEALTH 4660 ACUTE 12-01-2010 BRONCHITIS [facility]OG[facility] PHYSICIANS 51986 UNSPECIFIED 11-28-2010 . [facility] ARTHROPATHY NAOMIE SITE UNSPECIFIED 9150 ABRASION/FR 11-28-2010 . ICTION BURN ALAMO FINGER W/O NAOMIE MENTION INF 9233 CONTUSION 11-28-2010 ST. OF FINGER R[facility] NAOMIE V148 PERSONAL 11-28-2010 ST. HISTORY [facility] ALLERGY OT NAOMIE SPEC MEDICINAL AGTS V7240 09-14-2010 [facility] EXAMINATION WOMEN'S /TEST HEALTH ASS UNCONFIRMED 7840 HEADACHE 09-04-2010 [facility] 48674 UNSPEC COMP 09-02-2010 ALAMO UNSPEC PHYSICIANS EPISODE CARE Medications Na ND [...] 10 0- 7- 00 00 L ve IL 47 20 20 66 CA 01 17 [...] MA TA CY BL # ET 4 NE 00 02 03 18 9 00 TO [...] Procedure DOS Code Location Performer Comment IADNA [address] [facility] NEISSERIA 7 PHYSICIAN S GROUP GONORRHOE AE DIRECT PROBE TQ CULTURE [address] [facility] CHLAMYDIA 7 [place] [address] [place], XTRNL 7 ROGER MAJANO, DO AUDITORY CANAL W/O PHYSICIAN ANES S RADEX 42810 G[facility] GULUZIAN WRIST 6 RENETTA RENETTA COMPLETE MINIMUM 3 VIEWS SIMPLE 20049 [facility]OTT REPAIR 6 EMERGENCY SCALP/NEC K/AX/KAELA PHYSICIAN T/TRUNK S 2.5CM/< LAPAROSCO 48657 [facility] PY [facility] FULGURATI INC INC ON OVIDUCTS INJECTION J2710 [facility] NEOSTIGMI INC INC NE METHYLSUL FATE UP TO 0.5 MG INJECTION J0131 [facility] [place] [facility] ACETAMINO INC INC PHEN 10 MG BLOOD 97257 [facility] COUNT 6 [facility] HEMOGLOBI INC INC N BLOOD 48564 [facility] COUNT 6 [facility] HEMATOCRI INC INC T INJECTION J2405 [facility] [place] [facility] ONDANSETR INC INC ON HCL PER 1 MG COLLECTIO 50937 [facility] N VENOUS 6 [facility] BLOOD INC INC VENIPUNCT URE ANESTHESI 71699 [facility] JANICE A 6 ANESTH INTRAPERI OF THE TONEAL BLUE LOWER ABD W/LAPS NOS LAPS SURG 11215 JACKIE MCDONALD W/ASPIR 6 TAMARA SINGLETON EZE CAVITY/CY ST SINGLE/MU LTIPLE URNLS DIP 29138 [facility] STICK/TAB INC INC LET REAGENT AUTO MICROSCOP Y COLLECTIO 27181 [facility] N VENOUS 6 [facility] BLOOD INC INC VENIPUNCT URE BLOOD 18495 [facility] COUNT 6 [facility] COMPLETE INC INC AUTO&AUTO DIFRNTL WBC GONADOTRO 91894 [facility] PIN 6 [facility] CHORIONIC INC INC QUALITATI VE BLOOD 65365 [facility] COUNT 6 [facility] HEMOGLOBI INC INC N COLLECTIO 25093 [facility] N VENOUS 6 [facility] BLOOD INC INC VENIPUNCT URE BLOOD 93337 [facility] COUNT 6 [facility] HEMATOCRI INC INC T INJECTION J2405 [facility] [place] 6 [facility] ONDANSETR INC INC ON HCL PER [address] [place] [address] [facility] TAMARA AGEE 6 PHYSICIAN EZE E S GROUP ANY TRIMESTER SURGICAL ANESTHESI 14219 [facility] 6 ANESTH SHE INCOMPLET OF THE E/[place] [address] [facility], SURG 6 [facility] PATHOLOGY GROSS&VENKTAESH ROSCOPIC EXAM GROUND A0425 [facility] AM[facility]ULANCE PER SERVICE SERVICE STATUTE MILE AMBULANCE A0429 [facility] SERVICE 6 AMBULANCE AMBULANCE BLS SERVICE SERVICE EMERGENCY TRANSPORT GONADOTRO 09645 [facility] PIN 6 [facility] CHORIONIC INC INC QUANTITAT MANDI GONADOTRO 91160 [facility] PIN 6 [facility] CHORIONIC INC INC QUANTITAT MANDI US PREG [address] [facility] UTERUS 6 PHYSICIAN EZE REAL TIME S GROUP W/IMAGE DCMTN TRANSVAG BLOOD 69328 [facility] TYPING 6 [facility] SEROLOGIC INC INC ABO URINE [address] [facility] 6 PHYSICIAN EZE TEST S GROUP VISUAL COLOR CMPRSN METHS COLLECTIO 58877 [facility] N VENOUS 6 [facility] BLOOD INC INC VENIPUNCT URE BLOOD 31788 [facility] TYPING 6 [facility] SEROLOGIC INC INC RH (D) SMR PRIM 01873 JACKIE MCDONALD SRC WET 6 TAMARA SINGLETON EZE MOUNT NFCT AGT IADNA 84124 BIO BIO CHLAMYDIA 6 REFERNCE REFERNCE LABORATOR LABORATOR TRACHOMAT IES IES IS AMPLIFIED PROBE TQ CYTP 65051 BIO BIO CERV/VAG 6 REFERNCE REFERNCE AUTO THIN LABORATOR LABORATOR LAYER IES IES PREP MNL SCREEN IADNA 99454 JACKIE Hubbard NEISSERIA 6 TAMARA MCDONALD MD GONORRHOE AE DIRECT PROBE TQ IADNA 30267 BIO BIO NEISSERIA 6 REFERNCE REFERNCE LABORATOR LABORATOR GONORRHOE IES IES AE AMPLIFIED PROBE TQ IADNA NOS 66136 BIO BIO 6 REFERNCE REFERNCE AMPLIFIED LABORATOR LABORATOR PROBE TQ IES IES EACH ORGANISM IADNA 81020 BIO BIO TRICHOMON 6 REFERNCE REFERNCE LABORATOR LABORATOR VAGINALIS IES IES AMPLIFIED PROBE TECH CULTURE 17176 JACKIE MCDONALD CHLAMYDIA 6 TAMARA SINGLETON EZE ANY SOURCE NEURAXIAL 59818 INDEPENDE DESCH JANICE LABOR 5 NT ANALG/ANE ANESTHESI S PLND OLOGIST VAGINAL DELIVERY VAGINAL 564[address] ST ESTEBAN EDNA DELIVERY 5 ROGER ONLY W/POSTPAR PHYSICIAN MIKE CARE S [address] ST JESSICA NONSTRESS 5 ROGER MAR TEST PHYSICIAN S 11565 ST JUNIOR LIL NONSTRESS 5 [facility] TEST PHYSICIAN S HOSPITAL G0463 ST ST OUTPATIEN 5 [facility] ROG[facility] T CLIN MED CTR MED CTR VISIT PER DIEM INTERPRETER ST PER DIEM INTERPRETER ST ASSESS & MGMT PT IADNA [address] CHLAMYDIA 5 [facility] MED CTR MED CTR TRACHOMAT PER DIEM INTERPRETER ST PER DIEM INTERPRETER ST IS AMPLIFIED PROBE TQ IADNA [address] NEISSERIA 5 [facility] MED [facility] MED CTR GONORRHOE PER DIEM INTERPRETER ST PER DIEM INTERPRETER [place] [address] INFUSION 5 [facility] HYDRATION MED CTR MED CTR INITIAL PER DIEM INTERPRETER ST PER DIEM INTERPRETER ST 31 MIN-[address] IN[address] 5 ROGER [facility] TERBUTALI MED CTR MED CTR NE PER DIEM INTERPRETER ST PER DIEM INTERPRETER ST SULFATE UP [place] [address] NONSTRESS 5 [facility] R[facility] TEST MED CTR MED CTR PER DIEM INTERPRETER ST PER DIEM INTERPRETER ST URNLS DIP [address] 5 ROGER ROG[facility] STICK/TAB MED CTR MED CTR LET PER DIEM INTERPRETER ST PER DIEM INTERPRETER ST REAGENT AUTO MICROSCOP Y THERAPEUT [address] IC 5 ROGER ROG[facility] PROPHYLAC MED CTR MED CTR TIC/DX PER DIEM INTERPRETER ST PER DIEM INTERPRETER ST INJECTION SUBQ/IM US PREG 79885 [facility] UTERUS 5 W. [facility] REAL TIME F/U TRNSABDL PER FETUS BLOOD [address] COUNT 5 R[facility]ER ROGER COMPLETE NAOMIE NAOMIE AUTO&AUTO DIFRNTL WBC COLLECTIO 12977 . . N VENOUS 5 [facility] BLOOD NAOMIE NAOMIE VENIPUNCT URE GLUCOSE 75644 . . POST 5 [facility] GLUCOSE [place] 82736 [facility] UTERUS 5 W[employer] LLC DON W/DETAIL RAJINDER 1ST GESTATION CYTP C/V [address] AUTO THIN 5 [facility] LYR MED CTR MED CTR PREPJ SCR PER DIEM INTERPRETER ST PER DIEM INTERPRETER ST MNL RESCR PHYS IADNA [address] NEISSERIA 5 [facility] MED CTR MED CTR GONORRHOE PER DIEM INTERPRETER ST PER DIEM INTERPRETER ST AE AMPLIFIED PROBE TQ IADNA [address] CHLAMYDIA 5 [facility] CTR MED CTR TRACHOMAT PER DIEM INTERPRETER ST PER DIEM INTERPRETER ST IS AMPLIFIED PROBE TQ CULTURE [address] BACTERIAL 5 [facility] CTR MED CTR QUANTTATI PER DIEM INTERPRETER ST PER DIEM INTERPRETER ST VE COLONY COUNT URINE URINE 21831 ST JESSICA 5 [facility] MAR TEST VISUAL PHYSICIAN COLOR S CMPRSN METHS IAADIADOO 58963 KENISHA 4 ROGER FIORDALIZA INFLUENZA PHYSICIAN S APPL 51032 [facility] MODALITY 4 [facility] / AREAS NAOMIE NAOMIE ELEC STIMJ UNATTENDE D THERAPEUT 05658 [facility] IC PX 1/> 4 [facility] NAOMIE NAOMIE EACH 15 MIN EXERCISES PHYSICAL 33497 [facility] THERAPY 4 [facility] EVALUATIO NAOMIE NAOMIE N THERAPEUT 52591 [facility] IC PX 1/> 4 [facility] NAOMIE NAOMIE EACH 15 MIN EXERCISES RADEX HIP 03122 [facility] 4 LTH LTH UNILATERA ORTHOPAED ORTHOPAED L 1 VIEW IC CTR IC CTR RADIOLOGI 56239 [facility] C 4 LTH LTH EXAMINATI ORTHOPAED ORTHOPAED ON PELVIS IC CTR IC CTR 1/2 VIEWS IM ADM [address]80[address] ST [facility] NAN PRQ ID 4 [facility] SUBQ/IM NJXS 1 PHYSICIAN VACCINE S IIV4 VACC [address] [facility] NAN SPLIT 4 ROG[facility] VIRUS 0.5 ML DOS PHYSICIAN FOR IM S USE GONADOTRO [address] PIN 4 R[facility]ER R[facility] CHORIONIC MED CTR MED CTR PER DIEM INTERPRETER ST PER DIEM INTERPRETER ST QUALITATI VE VAGINAL 04764 ST JESSICA DELIVERY 4 [facility] SHAHID ONLY W/POSTPAR PHYSICIAN MIKE CARE S OTHER [address] MANUALLY 4 [facility] ASSISTED MED CTR MED CTR DELIVERY PER DIEM INTERPRETER ST PER DIEM INTERPRETER ST OTHER [address] ARTIFICIA 4 [facility]ER ROGER L RUPTURE MED CTR MED CTR OF PER DIEM INTERPRETER ST PER DIEM INTERPRETER ST MEMBRANES [address] NONSTRESS 4 [facility] ROGER TEST MED CTR MED CTR PER DIEM INTERPRETER ST [place] [address] NONSTRESS 4 [facility] ROG[facility] TEST MED CTR MED CTR PER DIEM INTERPRETER ST PER DIEM INTERPRETER ST IADNA [address] CHLAMYDIA 4 [facility] ROGER MED CTR MED CTR TRACHOMAT PER DIEM INTERPRETER ST PER DIEM INTERPRETER ST IS AMPLIFIED PROBE TQ IADNA [address] NEISSERIA 4 [facility] MED CTR MED CTR GONORRHOE PER DIEM INTERPRETER ST PER DIEM INTERPRETER ST AE AMPLIFIED PROBE TQ IADNA [address] STREPTOCO 4 ROGER ROGER CCUS MED CTR MED CTR GROUP B PER DIEM INTERPRETER ST PER DIEM INTERPRETER ST AMPLIFIED PROBE TQ TDAP 64443 ST TAYCE FIORDALIZA VACCINE 7 4 ROGER YRS/> IM PHYSICIAN S COLLECTIO [address] [facility]. N VENOUS 4 ROGER ROGER BLOOD ELA MAHMOOD VENIPUNCT URE BLOOD [address] COUNT 4 ROGER ROGER COMPLETE ELA MAHMOOD AUTO&AUTO DIFRNTL WBC GLUCOSE [address] POST 4 ROGER ROGER GLUCOSE [place] 25609 [facility] COPPAGE UTERUS 4 MATERNAL KRI REAL TIME AND F/U TRNSABDL PER FETUS US PREG 65347 [facility] COPPAGE UTERUS 4 MATERNAL KRI W/DETAIL AND RAJINDER 1ST GESTATION CYTP C/V [address] AUTO THIN 4 ROGER ROGER LYR MED CTR MED CTR PREPJ SCR PER DIEM INTERPRETER ST PER DIEM INTERPRETER ST MNL RESCR PHYS URNLS DIP 34730 ST DOW[place]ON 4 ROGER LIS STICK/TAB LET RGNT PHYSICIAN NON-AUTO S W/O MICRSCP IADNA [address] NEISSERIA 4 ROGER ROGER MED CTR MED CTR GONORRHOE PER DIEM INTERPRETER ST PER DIEM INTERPRETER ST AE AMPLIFIED PROBE TQ IADNA [address] CHLAMYDIA 4 [facility]OGER MED CTR MED CTR TRACHOMAT PER DIEM INTERPRETER ST PER DIEM INTERPRETER ST IS AMPLIFIED PROBE TQ BLOOD [address] TYPING 4 [facility]ERASH[facility] DURAN SEROLOGIC MED CTR MED CTR ABO PER DIEM INTERPRETER ST PER DIEM INTERPRETER ST CULTURE [address] BCT 4 ROGER DURAN ISOL&PRSM MED CTR MED CTR PTV ID PER DIEM INTERPRETER ST PER DIEM INTERPRETER ST ISOLATE EA URINE CULTURE [address] BACTERIAL 4 [facility] FELIXBETH MED CTR MED CTR QUANTTATI PER DIEM INTERPRETER ST PER DIEM INTERPRETER ST VE COLONY COUNT URINE BLOOD [address] COUNT 4 [facility]ER R[facility] COMPLETE MED CTR MED CTR AUTO&AUTO PER DIEM INTERPRETER ST PER DIEM INTERPRETER ST DIFRNTL WBC BLOOD [address] TYPING 4 [facility]ENRIQUET[facility] DAYTH SEROLOGIC MED [facility] MED CTR RH (D) PER DIEM INTERPRETER ST PER DIEM INTERPRETER ST COLLECTIO [address] N VENOUS 4 R[facility]ER ROGER BLOOD MED CTR MED CTR VENIPUNCT PER DIEM INTERPRETER ST PER DIEM INTERPRETER ST URE ANTIBODY [address] SCREEN 4 ROGER ROGER RBC EACH MED CTR MED CTR SERUM PER DIEM INTERPRETER ST PER DIEM INTERPRETER ST TECHNIQUE URINE 56645 ST ESTEBAN EDNA 4 ROGER TEST VISUAL PHYSICIAN COLOR S CMPRSN METHS ANTIBODY 7[address] ST [address] RUBELLA 4 [facility] MED CTR PER DIEM INTERPRETER ST PER DIEM INTERPRETER ST ANTIBODY [address] TREPONEMA 4 ROGER DURAN PALLIDUM MED CTR MED CTR PER DIEM INTERPRETER ST [place] [address] HEPATITIS 4 ROGER ROGER B MED CTR MED CTR SURFACE PER DIEM INTERPRETER ST PER DIEM INTERPRETER ST ANTIGEN US PREG 42318 RADIOLOGY KLEIMEYER UTERUS 3 FIORDALIZA REAL TIME ASSOCIATE W/IMAGE S OF NOTH DCMTN TRANSVAG URINE 65833 PENDELETO PENDELETO 3 N CO N CO TEST [facility] CENTER COLOR CMPRSN METHS URINE 90307 [facility] 1 ROGER DURAN TEST FT FT VISUAL ANA ANA COLOR CMPRSN METHS LEVEL III 85448 OSTERHAGE OSTERHAGE SURG 1 ANJUM ANJUM PATHOLOGY GROSS&VENKATESH ROSCOPIC EXAM ANES [address]64 ST INTRAPERI 1 ROGER DURAN TONEAL FT FT UPPER ANA ANA ABDOMEN W/LAPS NOS LAPAROSCO 49818 ST PY SURG 1 ROGER DURAN CHOLECYST [...] HCL PER ANA ANA [address] COUNT 1 ROGER ROGER COMPLETE MED CTR MED CTR AUTO&AUTO PER DIEM INTERPRETER ST PER DIEM INTERPRETER ST DIFRNTL WBC HEPATIC [address] FUNCTION 1 ROGER ROGER PANEL MED CTR MED CTR PER DIEM INTERPRETER [place] [address] AMYLASE 1 ROGER ROGER MED [facility] MED CTR PER DIEM INTERPRETER [place] [address] FOLIC 1 ROGER ROGER ACID MED CTR MED CTR SERUM PER DIEM INTERPRETER ST PER DIEM INTERPRETER ST ACUTE [address] HEPATITIS 1 ROGER ROGER PANEL MED CTR MED CTR PER DIEM INTERPRETER ST PER DIEM INTERPRETER ST CYANOCOBA [address] RADHA 1 ROGER ROGER VITAMIN MED CTR MED CTR B-[address]TER [place] [address] LIPASE 1 ROGER R[facility] MED [facility] MED CTR PER DIEM INTERPRETER [place] [address] RADIOLOGY RADIOLOGY ABDOMINAL 1 REAL ASSOCIATE ASSOCIATE TIME S OF NOTH S OF NOTH W/IMAGE LIMITED BASIC [address] METABOLIC 1 ROGER ROGER PANEL MED CTR MED CTR CALCIUM PER DIEM INTERPRETER ST PER DIEM INTERPRETER ST TOTAL HEPATIC [address] FUNCTION 1 ROGER ROGER PANEL MED CTR MED CTR PER DIEM INTERPRETER ST PER DIEM INTERPRETER ST BLOOD 44848 ST ST COUNT 1 ROGER ROGER COMPLETE MED CTR MED CTR AUTO&AUTO PER DIEM INTERPRETER ST PER DIEM INTERPRETER ST DIFRNTL WBC POSTPARTU 17240 [facility] WOESTE M CARE 1 [facility] MAL[facility] ONLY HEALTH SEPARATE ASS PROCEDURE VAGINAL 77412 [facility] WO[facility]E DELIVERY 1 [facility]OMEN[facility]S MALCOM ONLY HEALTH ASS [address] NONSTRESS 1 ROGER ROGER [place] [address] 1 ROGER ROGER UTERUS LIMITED MEDICALCE MEDICALCE 1/> NTER NTER FETUSES OBSERVATI 07442 [facility] 1 [facility] 50 MINUTES URNLS DIP 16615 [place] [address] WOMEN'S GAR STICK/TAB HEALTH LET RGNT ASS NON-AUTO W/O MICRSCP 81472 [facility] NONSTRESS 1 ROGER ROGER TEST MEDICALCE MEDICALCE NTER NTER DUP-SCAN 73189 [facility] XTR VEINS 1 ROGER ROGER NAOMIE NAOMIE UNILATERA L/LIMITED STUDY URNLS DIP 78043 [place] [address] WOMEN'S BRAD STICK/TAB HEALTH LET RGNT ASS NON-AUTO W/O MICRSCP URNLS DIP 93633 [place] [address] WOMEN'S GAR STICK/TAB HEALTH LET RGNT ASS NON-AUTO W/O MICRSCP 19327 [facility] NONSTRESS 1 ROGER FELIXBETH TEST MEDICALCE MEDICALCE NTER NTER URNLS DIP 56232 [place] [address] WOMEN'S BRAD STICK/TAB HEALTH LET RGNT ASS NON-AUTO W/O MICRSCP URNLS DIP 80095 [facility] 1 ROGER ROGER STICK/TAB LET MEDICALCE MEDICALCE REAGENT NTER NTER AUTO MICROSCOP Y 67609 [facility] NONSTRESS 1 ROGER ROGER TEST MEDICALCE MEDICALCE NTER NTER URNLS DIP 40173 [place] [address] WOMEN'S GAR STICK/TAB HEALTH LET RGNT ASS NON-AUTO W/O MICRSCP IADNA 50299 [facility] STREPTOCO 1 ROGER ROGER CCUS GROUP B MEDICALCE MEDICALCE AMPLIFIED NTER NTER PROBE TQ THERAPEUT 44112 [facility] IC 1 ROGER ROGER PROPHYLAC TIC/DX MEDICALCE MEDICALCE INJECTION NTER NTER SUBQ/IM URNLS DIP [address] 1 ROGER ROGER STICK/TAB LET MEDICALCE MEDICALCE REAGENT NTER NTER AUTO MICROSCOP Y 91923 [facility] NONSTRESS 1 ROGER ROGER TEST MEDICALCE MEDICALCE NTER NTER URNLS DIP 85606 [place] [address] WOMEN'S GAR STICK/TAB HEALTH LET RGNT ASS NON-AUTO W/O MICRSCP URNLS DIP 08432 [place] [address] WOMEN'S GAR STICK/TAB HEALTH LET RGNT ASS NON-AUTO W/O MICRSCP URNLS DIP 20004 [place] [address] WOMEN'S GAR STICK/TAB HEALTH LET RGNT ASS NON-AUTO W/O MICRSCP URNLS DIP 34132 [place] [address] WOMEN'S GAR STICK/TAB HEALTH LET RGNT [place] [address] [place] ABDOMINAL 1 ROGER DURAN REAL TIME MEDICALCE MEDICALCE W/IMAGE NTER NTER LIMITED INITIAL 90122 [facility] OBSERVATI 1 ROGER DURAN ON CARE/DAY MEDICALCE MEDICALCE 50 NTER NTER MINUTES HOSPITAL [address] [place] [address] [facility] DAY HEALTH MANAGEMEN ASS T 30 MIN/< INITIAL 11524 PHYSICIAN OBSERVATI 1 ROGER POE ON LABORATOR CARE/DAY MEDICALCE Y 50 NTER MINUTES THER [address] PROPH/DX 1 ROGER DURAN NJX IV PUSH MEDICALCE MEDICALCE SINGLE/1S NTER NTER T SBST/DRUG SBSQ 57464 [place] [address] [facility] CARE/DAY HEALTH 25 ASS MINUTES US [facility][NOTE 3] [address] UTERUS 1 ROGER DURAN W/DETAIL MEDICALCE MEDICALCE RAJINDER 1ST NTER NTER GESTATION URNLS DIP 44408 ST 1 ROGER DURAN STICK/TAB LET MEDICALCE MEDICALCE REAGENT NTER NTER AUTO MICROSCOP Y HEPATIC [address] FUNCTION 1 ROGER DURAN PANEL MEDICALCE MEDICALCE NTER NTER BLOOD 50125 [facility] COUNT 1 ROGER DURAN COMPLETE AUTOMATED [place] [address] [facility] AMYLASE 1 ROGER ROGER MEDICALCE MEDICALCE NTER NTER THER [address] PROPH/DX 1 ROGER DURAN NJX EA SEQL IV MEDICALCE MEDICALCE PUSH NTER NTER SBST/DRUG FAC MRI [address] PELVIS 1 ROGER DURAN W/O CONTRAST MEDICALCE MEDICALCE MATERIAL NTER NTER COLLECTIO [address] N VENOUS 1 ROGER FELIXBETH BLOOD NAOMIE NAOMIE VENIPUNCT URE BLOOD [address] COUNT 1 ROGER DURAN COMPLETE NAOMIE NAOMIE AUTO&AUTO DIFRNTL WBC URNLS DIP [address] 1 ROGER DURAN STICK/TAB NAOMIE NAOMIE LET RG[place] [address] [facility] ST. INFUSION 1 ROGER DURAN HYDRATION NAOMIE NAOMIE EACH ADDITIONA L HOUR THER [address] PROPH/DX 1 ROGER DURAN NJX IV NAOMIE NAOMIE PUSH SINGLE/1S T SBST/DRUG INITIAL 41320 [facility] 1 [facility] WE[facility] CARE/DAY HEALTH 70 ASS MINUTES GLUCOSE [address] POST 1 ROGER DAYTH GLUCOSE NAOMIE NAOMIE DOSE BLOOD 52476 [facility] ST. COUNT 1 ROGER DURAN HEMOGLOBI NAOMIE NAOMIE N COLLECTIO 93747 . ST. N VENOUS 1 ROGER DAYTH BLOOD NAOMIE NAOMIE VENIPUNCT URE URNLS DIP 57412 [facility] 1 WOMEN'S KIR STICK/TAB HEALTH LET RGNT ASS NON-AUTO W/O MICRSCP RADEX 73614 [facility]ST MARTA FINGR 1 MINIMUM 2 ASSOCIATE VIEWS S PSC URNLS DIP 53923 [facility] 1 WOMEN'S BRAD STICK/TAB HEALTH LET RGNT ASS NON-AUTO W/O MICRSCP US PREG 62267 [facility] UTERUS 1 WOMEN'S MALCOM W/DETAIL HEALTH ASS RAJINDER 1ST GESTATION URNLS DIP 90981 [facility] 1 WOMEN'S MALCOM STICK/TAB HEALTH LET RGNT ASS NON-AUTO W/O MICRSCP URNLS DIP 15281 [facility] 1 WOMEN'S BRAD STICK/TAB HEALTH LET RGNT ASS NON-AUTO W/O MICRSCP URINE 57423 [facility] 1 WOMEN'S [facility] HEALTH VISUAL ASS ASS COLOR CMPRSN METHS URINE 97597 [facility] 1 N CO N CO TEST HEALTH HEALTH VISUAL CENTER CENTER COLOR CMPRSN METHS Encounters Encounter Start End Date Code Location Performer Type Date OFFICE [address] [facility] OUTPATIEN 7 7 PHYSICIAN T VISIT S GROUP 15 MINUTES OFFICE [address] [facility] OUTPATIEN 7 7 PHYSICIAN T VISIT S GROUP 15 MINUTES PERIODIC 24676 [facility] 7 PHYSICIAN E MED EST S GROUP PATIENT 18-[address] [facility], OUTPATIEN 7 7 ROGER MAJANO DO T VISIT 10 PHYSICIAN MINUTES S OFFICE 88263 [facility] II OUTPATIEN 7 7 ROGER Wynn VISIT 25 PHYSICIAN MINUTES S OFFICE [address] ST [facility] NAN OUTPATIEN 6 6 ROGER Wynn VISIT 15 PHYSICIAN MINUTES S EMERGENCY 87443 [facility] 6 6 EMERGENCY DEPARTMEN T VISIT PHYSICIAN HIGH/URGE S NT SEVERITY [facility] - [facility] 6 [facility] - 6 6 [facility] INC T EMERGENCY 64469 ZHANE CALVO 6 6 PHYSICIAN U JANICE DEPARTMEN S, [facility] T VISIT HIGH/URGE NT SEVERITY [facility] - 6 6 [facility] OUTPATIEN INC T EMERGENCY 63091 [facility] DEPT 6 6 [facility] VISIT INC HIGH SEVERITY& THREAT FUNCJ OFFICE [address] [facility] OUTPATIEN 6 6 PHYSICIAN EZE T VISIT S GROUP 25 MINUTES [facility]OS[facility] - 6 6 [facility] OUTPATIEN INC T OFFICE [address] [facility] OUTPATIEN 6 6 PHYSICIAN EZE T VISIT S GROUP 25 MINUTES [facility] - 6 6 [facility] OUTPATIEN INC T OFFICE 88012 JACKIE MCDONALD OUTPATIEN 6 6 TAMARA SINGLETON EZE T VISIT 15 MINUTES OFFICE 77728 JACKIE MCDONALD OUTPATIEN 6 6 TAMARA SINGLETON EZE T VISIT 25 MINUTES INITIAL 89657 JACKIE MCDONALD PREVENTIV 6 6 TAMARA LOO E MEDICINE NEW PT AGE 18-39YRS OFFICE [address] ST JESSICA OUTPATIEN 5 5 ROGER MAR T VISIT 15 PHYSICIAN MINUTES [facility] ST - 5 5 ROGER OUTPATIEN MED CTR T PER DIEM INTERPRETER ST OFFICE 61651 ST JESSICA OUTPATIEN 5 5 ROGER MAR T VISIT 15 PHYSICIAN MINUTES [facility] ST - 5 5 ROGER OUTPATIEN MED CTR T PER DIEM INTERPRETER ST OFFICE 72612 ST [facility] OUTPATIEN 5 5 ROGER T VISIT 15 PHYSICIAN MINUTES S OFFICE 68427 ST JESSICA OUTPATIEN 5 5 ROGER MAR T VISIT 15 PHYSICIAN MINUTES [facility] ST - 5 5 ROGER OUTPATIEN MED CTR T PER DIEM INTERPRETER ST OFFICE 84142 ST OUTPATIEN 5 5 ROGER T VISIT MED CTR 40 PER DIEM INTERPRETER R [facility] - 5 5 ROGER OUTPATIEN MED CTR T PER DIEM INTERPRETER ST OFFICE 81808 ST [facility] OUTPATIEN 5 5 ROGER T VISIT 15 PHYSICIAN MINUTES S OFFICE 76522 ST JESSICA OUTPATIEN 5 5 ROGER MAR T VISIT 15 PHYSICIAN [address] [facility]. - 5 5 ROGER OUTPATIEN NAOMIE T OFFICE [address]26 [facility] OUTPATIEN 5 5 ROGER T VISIT 15 PHYSICIAN MINUTES S OFFICE 41580 JESSICA JESSICA OUTPATIEN 5 5 MAR MAR T VISIT [address]ES [address] KEN[facility] OUTPATIEN 5 5 ROGER FIORDALIZA T VISIT [address] [facility] - 5 5 ROGER OUTPATIEN MED CTR T PER DIEM INTERPRETER OFFICE 22857 [facility] 5 ROGER KOTA T VISIT 15 PHYSICIAN MINUTES [facility] ST - 5 5 ROGER OUTPATIEN MED CTR T PER DIEM INTERPRETER ST EMERGENCY 82110 [facility] 5 5 EMERGENCY MALCOM DEPARTMEN T VISIT PHYSICIAN HIGH/URGE S [facility] ST - 5 5 ROGER OUTPATIEN MED CTR T PER DIEM INTERPRETER ST OFFICE 75386 ST [facility] NAN OUTPATIEN 5 5 ROGER T VISIT 15 PHYSICIAN MINUTES S OFFICE 72823 ST [facility] OUTPATIEN 4 4 ROGER FIORDALIZA T VISIT 15 PHYSICIAN MINUTES S OFFICE 92291 [facility] OUT[facility] 4 4 LTH LTH T VISIT ORTHOPAED ORTHOPAED 15 IC CTR IC CTR [facility] - 4 4 [facility] - 4 4 ROGER OUTPATIEN NAOMIE T OFFICE 85018 [facility] OUTPATIEN 4 4 LTH LTH T VISIT ORTHOPAED ORTHOPAED 15 IC CTR IC CTR MINUTES OFFICE 93054 ST [facility] NAN OUTPATIEN 4 4 ROGER T VISIT 15 PHYSICIAN MINUTES [facility] ST - 4 4 ROGER OUTPATIEN MED CTR T PER DIEM INTERPRETER ST OFFICE 22652 SEDA SEDA OUTPATIEN 4 4 ALP [facility]P [facility] 4 ROGER INPATIENT MED CTR PER DIEM INTERPRETER ST OFFICE [address]70 ST JESSICA OUTPATIEN 4 4 ROGER MAR T VISIT 15 PHYSICIAN MINUTES [facility] ST - 4 4 ROGER OUTPATIEN MED CTR T PER DIEM INTERPRETER ST OFFICE 03248 ST JESSICA OUTPATIEN 4 4 ROGER MAR T VISIT 15 PHYSICIAN [address] [facility] - 4 4 ROGER OUTPATIEN MED CTR T PER DIEM INTERPRETER ST OFFICE 38785 ST JESSICA OUTPATIEN 4 4 ROGER MAR T VISIT 15 PHYSICIAN MINUTES S OFFICE 01466 ST JESSICA OUTPATIEN 4 4 ROGER MAR T VISIT 15 PHYSICIAN MINUTES S OFFICE 68123 ST JESSICA OUTPATIEN 4 4 ROGER MAR T VISIT 15 PHYSIC[address] [facility] - 4 4 ROGER OUTPATIEN MED CTR T PER DIEM INTERPRETER ST OFFICE 28937 ST JESSICA OUTPATIEN 4 4 ROGER MAR T VISIT 15 PHYSICIAN MINUTES S OFFICE 87429 ST JESSICA OUTPATIEN 4 4 ROGER MAR T VISIT 15 PHYSICIAN MINUTES S OFFICE 21491 ST OUTPATIEN 4 4 ROGER T VISIT MED CTR 25 PER DIEM INTERPRETER [facility] ST - 4 4 ROGER OUTPATIEN MED CTR T PER DIEM INTERPRETER ST OFFICE 26438 ST MAURA FIORDALIZA OUTPATIEN 4 4 ROGER T VISIT 15 PHYSICIAN MINUTES S OFFICE 96872 ST JESSICA OUTPATIEN 4 4 ROGER MAR T VISIT 15 PHYSICIAN MINUTES S OFFICE 55494 ST [facility] OUTPATIEN 4 4 ROGER T VISIT [address] [facility] - 4 4 ROGER OUTPATIEN [facility] ST - 4 4 ROGER OUTPATIEN MED CTR T PER DIEM INTERPRETER ST OFFICE 25978 ST [facility] OUTPATIEN 4 4 ROGER T VISIT [address] [facility] - 4 4 ROGER OUTPATIEN MED CTR T PER DIEM INTERPRETER ST OFFICE 70478 [facility] OUTPATIEN 4 4 ROGER LIS T VISIT [address] PHYSIC[address] [facility] [address] - 4 4 ROGER OUTPATIEN MED CTR T PER DIEM INTERPRETER ST OFFICE 11867 [facility] OUTPATIEN 4 4 ROGER LIS T VISIT [address] [facility] - 4 4 ROGER OUTPATIEN MED CTR T PER DIEM INTERPRETER [facility] ST - 3 3 ROGER OUTPATIEN MED CTR T PER DIEM INTERPRETER EMERGENCY 07285 RICHARD DEPT 3 3 ROGER N GLADIS VISIT MED CTR HIGH SEVERITY& THREAT FUNCJ EMERGENCY 43127 ST 3 3 ROGER DEPARTMEN MED CTR T VISIT PER DIEM INTERPRETER ST HIGH/URGE NT SEVERITY OFFICE 72679 [facility] P[facility] OUTPATIEN 3 3 N CO N CO T VISIT HEALTH HEALTH 15 CENTER [facility]ENTER [facility] ST - 1 1 ROGER OUTPATIEN FT T ANA OFFICE 41765 JULISSA EPSTEINI OUTPATIEN 1 1 NOR NOR T VISIT 15 MINUTES OFFICE 28130 KENISHA DE OUTPATIEN 1 1 FIORDALIZA FIORDALIZA T VISIT [address] - 1 1 ROGER OUTPATIEN MED CTR T [facility] ST. - 1 1 ROGER OUTPATIEN [facility] ST - 1 1 ROGER OUTPATIEN MED [facility] EMERGENCY 58512 RICHARDSO RICHARDSO 1 1 N GLADIS N GLADIS DEPARTMEN T VISIT HIGH/URGE [facility] ST - 1 1 ROGER OUTPATIEN T MEDICALCE NTER OFFICE 93649 OUTPSYCHIATRIC 1 1 ROGER T VISIT 5 MINUTES MEDICALCE [facility] ST - 1 1 ROGER INPATIENT MEDICALCE NTER OFFICE 84625 [facility] OUTPATIEN 1 1 WOMEN'S KIR T VISIT HEALTH 15 ASS MINUTES [facility] ST - 1 1 ROGER OUTPATIEN T MEDICALCE NTER OFFICE 23273 OUTPATI 1 1 ROGER T VISIT 40 MEDICALCE MINUTES NTER OFFICE 13014 [facility] OUTPATIEN 1 1 WOMEN'S GAR T VISIT HEALTH [address] - 1 1 ROGER OUTPATIEN T MEDICALCE NTER OFFICE 65110 OUTPATIEN 1 1 ROGER T VISIT 40 MEDICALCE MINUTES [facility] ST. - 1 1 ROGER OUTPATIEN NAOMIE T OFFICE 26588 [facility] 1 1 WOMEN'S BRAD T VISIT HEALTH 15 ASS [address]ES [address] [facility] 1 1 WOMEN'S GAR T VISIT HEALTH 15 ASS MINUTES OFFICE 72657 [facility] 1 1 ROGER T VISIT 40 MEDICALCE MINUTES [facility] ST - 1 1 ROGER OUTPATIEN T MEDICALCE [facility] OFFICE 97090 [facility] 1 1 WOMEN'S BRAD T VISIT HEALTH 15 ASS MINUTES OFFICE 49041 [facility] 1 1 ROGER T VISIT 40 MEDICALCE MINUTES [facility] - 1 1 ROGER OUTPATIEN T MEDICALCE [facility] ST - 1 1 ROGER OUTPATIEN T MEDICALCE [facility] OFFICE 15257 [facility] 1 1 WOMEN'S GAR T VISIT HEALTH 15 ASS MINUTES OFFICE 94101 [facility] 1 1 ROGER T VISIT 40 MEDICALCE MINUTES [facility] - 1 1 ROGER OUTPATIEN T MEDICALCE NTER OFFICE 25619 [facility] 1 1 WOMEN'S GAR T VISIT HEALTH 15 ASS MIN[address]ES OFFICE 32099 [facility] 1 1 WOMEN'S GAR T VISIT HEALTH 15 ASS [address]ES [address] [facility] 1 1 WOMEN'S GAR T VISIT HEALTH 15 ASS MINUTES OFFICE 41013 [facility] OUTPSYCHIATRIC 1 1 WOMEN'S GAR T VISIT HEALTH [address] - 1 1 ROGER ORANTESEN T MEDICALCE NTER EMERGENCY 71994 [facility] 1 1 ROGER JANICE DEPARTMEN MED CTR T VISIT HIGH/URGE NT SEVERITY [facility]PITAL ST[facility] - 1 1 ROGER GARCÍAPATIEN [facility] - 1 1 ROGER OUTPATIEN NAOMIE T OFFICE 01496 [facility] OUT[facility] 1 1 WOMEN'S KIR T VISIT HEALTH 15 ASS MINUTES OFFICE 10250 [facility] OUTPATIEN 1 1 ROGER FISHS T VISIT [address] - 1 1 ROGER GARCÍAPATIEN [facility] T EMERGENCY 11252 [facility] 1 1 ROGER DEPARTMEN MED CTR T VISIT MODERATE SEVERITY OFFICE 21449 [facility] OUTPATIEN 1 1 WOMEN'S BRAD T VISIT HEALTH 15 ASS MINUTES OFFICE 03386 [facility] OUT[facility] 1 1 WOMEN'S MALCOM T VISIT HEALTH 15 ASS MINUTES OFFICE 86442 [facility] OUTPATIEN 1 1 WOMEN'S BRAD T VISIT HEALTH 15 ASS MINUTES OFFICE 10052 [facility] OUTPATIEN 1 1 WOMEN'S GAR T NEW 45 HEALTH MINUTES ASS EMERGENCY 20806 [facility] 1 1 ROGER DEPARTMEN MED CTR T VISIT HIGH/URGE NT SEVERITY OFFICE 48311 ST [facility] NAN OUTPATIEN 1 1 ROGER T VISIT 15 PHYSICIAN MINUTES S OFFICE 08385 [facility] OUTPATIEN 1 1 N CO N CO T NEW 20 HEALTH HEALTH MINUTES CENTER [id number]
--- OUTSIDE RECORDS SUMMARY | 2016-10-31 06:28 | External Medical Summary Rpt ---
Author Author ARVIN Luther, ARVIN Luther Organization [employer] Address Unknown Phone Unavailable
--- OUTSIDE RECORDS SUMMARY | 2016-10-31 06:28 | External Medical Summary Rpt ---
Demographics Preferred Language Burkinan Marital Status Unknown Hoahaoism Affiliation Unknown Race Unknown Ethnic Group Unknown Author Author , Organization [employer] Address Unknown Phone Unavailable Purpose Continuity of Care Document - through 2016 Immunization No patient found.
--- OUTSIDE RECORDS SUMMARY | 2016-10-31 06:28 | External Medical Summary Rpt ---
Demographics Preferred Language Nauruan Marital Status Unknown Buddhist Affiliation Unknown Race Unknown Ethnic Group Unknown Author Author , Organization [employer] Address Unknown Phone Unavailable Purpose Continuity of Care Document - through 2016 Immunization No patient found.
--- NOTE | 2016-10-31 08:55 | Operative Note ---
Procedure/Operative Record Date of Procedure: 10/31/16 Pre-op diagnosis: 1. Symptomatic pelvic relaxation. 2. Stress urinary incontinence. Post-op diagnosis: 1. Symptomatic pelvic relaxation. 2. Stress urinary incontinence. Procedure performed: Total vaginal hysterectomy, anterior colporrhaphy, enterocele repair. Surgeon: Franck Walker Color Technician(s): GRETEL Liu Anesthesia: Gen., CHRISTINE Kirkpatrick Indications: 1. Symptomatic pelvic relaxation. 2. Stress urinary incontinence. Description of procedure: After the patient was prepped and draped in usual fashion and general anesthesia was administered, a weighted speculum was placed within the posterior fourchette of the vagina, and the cervix was grasped with a double-tooth tenaculum, and retracted to the introitus. The cervix was circumcised with a knife, and the vaginal mucosa was sharply and bluntly dissected free. A posterior colpotomy incision was made with Darrel scissors, and the long lip of the weighted speculum was placed within the posterior peritoneum. The uterosacral ligaments on either side were Marychuy clamped, cut, and Marychuy sutured with #1 Vicryl, as were the cardinal ligaments and uterine vessels. The peritoneum was then entered anteriorly with Darrel scissors, and a long right angle retractor was placed within it. The uterus was flipped anteriorly, and the ovarian pedicles were crossclamped and cut, thus removing the boggy uterine specimen. These pedicles were Marychuy sutured, and then free tied with #1 Vicryl. The posterior vaginal cuff was then run and locked with #1 Vicryl, to include the uterosacral ligament pedicles for vaginal support, in a Resendiz fashion, to reduce the enterocele. The peritoneum was grasped with a long Allis clamp, and closed with a running pursestring suture of 0 Vicryl, and pulled tight. The base of the cystocele was then grasped with 2 Ash clamps, and the vaginal mucosa was undermined up the midline to the urethral meatus. Allis clamps were placed on either side along the way. The endopelvic fascia was then sharply and bluntly dissected free, and interrupted U-sutures of 2-0 Vicryl were placed to elevate the urethrovesical angle. Excess vaginal mucosa was then trimmed, and the mucosa was closed with a running unlocked suture of 2-0 Vicryl. The vaginal cuff was then closed with an anteroposterior running locked suture of #1 Vicryl. The urine is clear in the Booth catheter. The sponge and needle counts correct. The estimated blood loss was 400 mL. The patient tolerated the procedure well, and was taken to PACU in excellent condition. EBL (ml): 400 Complications: None. Specimens: Uterus at 0866
--- NOTE | 2016-10-31 09:06 | Anesthesia Record ---
Anesthesia Record Part II Discharge time: 924 Destination: Second Floor PACU nurse assessment review? Yes Patient is: Awake, Stable Anesthesia complications? No at 0906
--- NOTE | 2016-10-31 09:06 | Anesthesia Record ---
Anesthesia Record Part I Total IV fluids: 1600 EBL (ml): 600 Urine Output: 100 Units of blood given: 0 B/P: 126/83 % SaO2: 97 Pulse: 77 Resps: 16 Temp: 99 Patient is: Drowsy, Stable Stable to PACU at: 0855 at 0906
[2016-10-31 10:22] LABS: HEMOGLOBIN 12.8 g/dL (12.2-16.2)
--- NOTE | 2016-10-31 12:21 | ACUTE CARE PROGRESS NOTE (QUA) ---
Progress Notes Subjective Date 10/31/16 Time 1220 Note This is day of surgery. The patient is afebrile. Her vital signs are stable. Abdomen soft. Pain is under good control. Urine output is good/clear. Impression : Stable. Assessment/Plan This inpt stay is expected to cross 2 MNs from start of care No at 1221
[2016-10-31 14:13] LABS: URINE BILIRUBIN - DIPSTICK NEGATIVE (NEG); URINE BLOOD NEGATIVE (NEG)
[2016-11-01] VITALS: BP 116/51
[2016-11-01 06:00] VITALS: BP 112/57
--- NOTE | 2016-11-01 06:15 | ACUTE CARE PROGRESS NOTE (QUA) ---
Progress Notes Subjective Date 11/01/16 Time 0614 Note This is postop day number 1. The patient is afebrile. Vital signs stable. Abdomen soft. Urine output good. Hemoglobin 12.8 g. She is doing well, and will be discharged today with her Booth catheter. Assessment/Plan This inpt stay is expected to cross 2 MNs from start of care No at 0614
--- NOTE | 2016-11-01 06:18 | DISCHARGE SUMMARY STANDARD ---
Discharge Summary Date of admission: 10/31/16 Date of discharge: 11/01/16 Patient condition: Stable Discharge diagnosis (es): 1. Symptomatic pelvic relaxation. 2. Stress urinary incontinence. Hospital course: This 26-year-old white female was admitted for definitive treatment of the above diagnoses. On the date of admission, she was taken to the operating room, where she underwent a total vaginal hysterectomy, anterior colporrhaphy, and enterocele repair, without complications. Postoperatively, the patient has done well. Her hemoglobin is 12.8 g. Her urine output is good/clear. Her abdomen is soft. Her pain management has been adequate. She is discharged home on the first postoperative day on Dilaudid 4 mg (one by mouth every 6H. Pain) and on Macrobid 100 mg (one by mouth twice a day), to cover the Booth catheter, with which she is going home. She is given appropriate instructions as to diet and exercise, and she is to return to the office in 3 days for catheter removal. She is a smoker, but refuses smoking cessation patches. at 0618
[2016-11-01] MEDS ORDERED: DILAUDID4 MG PO (06:21)
[2016-11-01] MEDS ORDERED: MACROBID100 M3 PO (06:22)
[2016-11-01 07:30] VITALS: BP 107/54
== END 2016-11-01 08:10 | disposition home or self-care (01) ==
LOC: SDC 06:11 → OB 06:16 → SDC 07:30 → OB 09:45
PROVIDERS: Obstetrics & Gynecology
PROC: 0UTC7ZZ Resection of Cervix, Via Natural or Artificial Opening (ICD-10-PCS; principal; 2016-10-31 07:30)
PROC: 0UQF0ZZ Repair Cul-de-sac, Open Approach (ICD-10-PCS; principal; 2016-10-31 07:30)
PROC: 0UT97ZZ Resection of Uterus, Via Natural or Artificial Opening (ICD-10-PCS; principal; 2016-10-31 07:30)
PROC: 0JQC0ZZ Repair Pelvic Region Subcutaneous Tissue and Fascia, Open Approach (ICD-10-PCS; principal; 2016-10-31 07:30)
DX: N81.89 Other female genital prolapse (principal); N39.3 Stress incontinence (female) (male)
CPT/HCPCS: G0378; J2405; J2710